=== PATIENT | female | born 1940 | race Caucasian/White ===

== ENCOUNTER → 2017-04-20 | Outpatient (CLI) | payer OTHER | LOC: FIMAGING 14:10 | PROVIDERS: ATTEND Neurological Surgery | DX: Z98.1 Arthrodesis status (principal); M41.9 Scoliosis, unspecified ==

== ENCOUNTER 2017-05-03 05:51 | Inpatient (IN) | payer OTHER ==
[2017-05-03] MEDS ORDERED: TRANEXAMIC ACID 1,000 MG in NS 100 ML IV ONE (06:00)
[2017-05-03] MEDS ORDERED: fentaNYL 100 MCG/2 ML INJ IT ONE (06:07)
[2017-05-03] MEDS ORDERED: ceFAZolin 2 GM/SWFI 2 GM/20 ML SYR IVP ONE (06:07)
[2017-05-03] MEDS ORDERED: morphINE PF 5 MG/10 ML INJ IT ONE (06:07)
[2017-05-03] MEDS ORDERED: ACETAMINOPHEN 500 MG TAB PO ONE (06:07)
[2017-05-03] MEDS ORDERED: LR 1,000 ML IV ONE (06:29)
[2017-05-03] MEDS ORDERED: BUPIVACAINE 0.25% 30 ML SDV ONE ×3 (06:54→16:39)
[2017-05-03] MEDS ORDERED: BACITRACIN 50,000 UNITS/10 ML SYR IRR ONE ×3 (06:55→15:04)
[2017-05-03] MEDS ORDERED: THROMBIN (BOVINE) 20,000 UNIT VIAL TP ONE (06:56)
[2017-05-03] MEDS ORDERED: CHLORHEXIDINE GLUC HIBICLENS 118 ML BTL TP ONE (06:57)
[2017-05-03] MEDS ORDERED: CITRATE DEXTROSE SOLN 500 ML BAG ONE ×2 (06:57→12:33)
--- NOTE | 2017-05-03 07:03 | PDANEPAE ---
ANE Past Medical History - Cardiovascular History Hx Hypertension: Yes Hx Arrhythmias: No Hx Chest Pain: No Hx Coronary Artery / Peripheral Vascular Disease: No Hx CHF / Valvular Disease: No Hx Palpitations: No - Pulmonary History Hx COPD: No Hx Asthma/Reactive Airway Disease: No Hx Recent Upper Respiratory Infection: No Hx Oxygen in Use at Home: No Hx Sleep Apnea: Yes Sleep Apnea Screening Result - Last Documented: Positive Pulmonary History Comment: quit smoking 04-20-17 Smoked over 50 years-"socially " - Neurologic History Hx Cerebrovascular Accident: No Hx Seizures: No Hx Dementia: No - Endocrine History Hx Diabetes: Yes Endocrine History Comment: NIDDM well controlled. - Renal History Hx Renal Disorders: Yes Renal History Comment: sl stress incontinence. - Liver History Hx Hepatic Disorders: No - Neurological & Psychiatric Hx Hx Neurological and Psychiatric Disorders: Yes Neurological / Psychiatric History Comment: low back pain with weakness/pain in legs - Cancer History Hx Cancer: No - Congenital Disorder History Hx Congenital Disorders: No - GI History Hx Gastrointestinal Disorders: Yes Gastrointestinal History Comment: on Rx-occ heartburn;occ diverticulosis - Other Health History Other Health History: rash on back/chest due to bleach; Intermittent Swelling of feet/ankles - Chronic Pain History Chronic Pain: Yes (back/legs) - Surgical History Prior Surgeries: tonsillectomy. bilat knee sx. bilat knee replacements. lap sean. lumbar fusion. shrapnell excised arm. breast cyst excised. hysterectomy. oophorectomy. cataract extraction w/IOL ANE Review of Systems Review of Systems: - Exercise capacity METS (RN): 3 METS ANE Patient History - Allergies Allergies/Adverse Reactions: Bleach (Sodium Hypochlorite) Allergy (Verified 05/03/17 06:44) Rash Penicillins Allergy (Verified 05/03/17 06:44) Rash - Home Medications Home Medications: Aspirin [Aspirin 81mg (*)] 81 mg PO DAILY 04/25/17 [Last Taken Unknown] Cholecalciferol Vit D3 [Vitamin D3 (*)] 1,000 units PO DAILY 04/25/17 [Last Taken Unknown] Folic Acid [Folic Acid 1 MG (*)] 1 mg PO DAILY 04/25/17 [Last Taken Unknown] Furosemide [Lasix 20 MG (*)] 20 mg PO MWF@0930 04/25/17 [Last Taken Unknown] Hydrocodone/APAP 5/325 [Albion 5/325 (*)] 1 each PO DAILY PRN 04/25/17 [Last Taken Unknown] Hydrocodone/Acetaminophen [[place]ion 5/325 (*)] 1 each PO BID 04/25/17 [Last Taken Unknown] Ibuprofen [Motrin (*)] 600 mg PO BID 04/25/17 [Last Taken Unknown] Metolazone [Zaroxolyn 5MG (*)] 2.5 mg PO MWF 04/25/17 [Last Taken Unknown] Multivitamins [Multivitamin (*)] 1 each PO DAILY 04/25/17 [Last Taken Unknown] Nebivolol HCl [Bystolic] 20 mg PO HS 04/25/17 [Last Taken Unknown] Omeprazole [Prilosec 20 mg] 20 mg PO DAILY 04/25/17 [Last Taken Unknown] Pioglitazone HCl [Actos] 45 mg PO DAILY 04/25/17 [Last Taken Unknown] Pramipexole Di-HCl [Mirapex 1 mg (*)] 2 mg PO HS 04/25/17 [Last Taken Unknown] Pregabalin [Lyrica 75mg (*)] 150 mg PO HS 04/25/17 [Last Taken Unknown] Vitamin B Complex [B Complex] 1 each PO DAILY 04/25/17 [Last Taken Unknown] diphenhydrAMINE [Benadryl 25 MG (*)] 50 mg PO HS 04/25/17 [Last Taken Unknown] metFORMIN HCL [Glucophage 1000 mg] 1,000 mg PO HS 04/25/17 [Last Taken Unknown] - NPO status NPO Since - Liquids (Date): 05/03/17 NPO Since - Liquids (Time): 04:00 NPO Since - Solids (Date): 05/02/17 NPO Since - Solids (Time): 22:00 - Smoking Hx Smoking Status: Former smoker ANE Labs/Vital Signs - Vital Signs Blood Pressure: 160/85 Heart Rate: 66 Respiratory Rate: 16 O2 Sat (%): 90 Height: 172.72 cm Weight: 99.79 kg ANE Physical Exam - Airway Mallampati Score: Class 1 - ASA Status ASA Status: III ANE Anesthesia Plan Anesthesia Plan: general endotracheal anesthesia Lines/Monitors: arterial line
[2017-05-03] MEDS ORDERED: MIDAZOLAM 2 MG/2 ML VIAL ONE (07:07)
[2017-05-03] MEDS ORDERED: PROPOFOL 200 MG/20 ML VIAL ONE ×4 (07:08→16:13)
[2017-05-03] MEDS ORDERED: PROPOFOL/EMULSION 500 MG/50 ML BOTTLE IV ONE ×5 (07:08→13:09)
[2017-05-03] MEDS ORDERED: fentaNYL 100 MCG/2 ML INJ ONE ×5 (07:08→17:26)
--- NOTE | 2017-05-03 07:09 | PDHPUP ---
History & Physical Update H&P update statement: This history and physical update is based on an assessment of the patient which was completed after admission or registration (within 24 hours), but prior to the surgery/procedure. H&P update: no change in patient's condition since H&P completed
[2017-05-03] MEDS ORDERED: ONDANSETRON 4 MG/2 ML VIAL IVP PRN ×2 (17:08→17:14)
[2017-05-03] MEDS ORDERED: ONDANSETRON DISINTEGRATING 4 MG TAB PO PRN (17:08)
[2017-05-03] MEDS ORDERED: diphenhydrAMINE 25 MG CAP PO PRN (17:08)
[2017-05-03] MEDS ORDERED: LACTULOSE 20 GM/30 ML UDCUP PO PRN (17:08)
[2017-05-03] MEDS ORDERED: morphINE PCA 30 MG/30 ML PCA IV PRN (17:08)
[2017-05-03] MEDS ORDERED: MAGNESIUM HYDROXIDE 30 ML UDCUP PO PRN (17:08)
--- NOTE | 2017-05-03 17:08 | POSTOPPROG ---
Post Op Note Date of Operation: 05/03/17 Surgeon: Jamil Han Fireman Helper: Jacob Mckay Anesthesiologist: John Santizo Anesthesia: GET(General Endotracheal) Pre-op Diagnosis: degenerative scoliosis, spinal stenosis, pseudarthrosis Post-op Diagnosis: same Indication: back and leg pain, pseudarthrosis Procedure: T10-L5 fusion with L 1/2,2/3,3/4,4/5 TLIFs Findings: loose hardware, severe DJD and spinal stenosis Inf/Abcess present in the surg proc area at time of surgery?: No EBL: 500-1000 Complications: none Drains: Santo Malhotra (to bulb suction)
[2017-05-03] MEDS ORDERED: NALOXONE HCL 0.4 MG/ML INJ IVP PRN ×2 (17:14→20:15)
[2017-05-03] MEDS ORDERED: LR 500 ML IV PRN (17:14)
[2017-05-03] MEDS ORDERED: PROMETHAZINE HCL 25 MG/ML INJ IVP PRN (17:14)
[2017-05-03] MEDS ORDERED: NS W/ 20 KCl/L 1,000 ML IV SCH (17:15)
--- NOTE | 2017-05-03 17:15 | POSTANESTH ---
Post Anesthetic Evaluation Cardiovascular Status: Normal, Stable Respiratory Status: Normal, Stable Level of Consciousness/Mental Status: Can Participate in Eval Pain Control: Adequate, Prn Tx Ordered Nausea/Vomiting Control: Adequate, Prn Tx Ordered Complications Possibly Related to Anesthesia: None Noted
--- NOTE | 2017-05-03 17:28 | SOAPPROG ---
SOAP Progress Note Assessment/Plan: POST OP CHECK: Assessment: Doing well s/p T10-L5 fusion with L1/2,2/3,3/4,4/5 TLIFs Plan: CPM in PACU RHODA to suction Transfer to ICU per protocol 05/03/17 17:21 Subjective: Awake, alert, comfortable Objective: Vital Signs Temp Pulse Resp BP Pulse Ox 37 C 66 16 160/85 H 90 L 05/03/17 06:45 05/03/17 07:03 05/03/17 07:03 05/03/17 07:03 05/03/17 07:03 Neuro: NUGENT to command sens +LT PERRLA conversant Vitals: HR:78 BP:128/66 O2: 98% face mask ICD10 Worksheet Patient Problems: Problems Problem Status Onset Degenerative disc disease, lumbar Acute Pseudarthrosis Acute - ICD10 Problem Qualifiers (1) Pseudarthrosis (2) Degenerative disc disease, lumbar
[2017-05-03] MEDS: fentaNYL 100 MCG/2 ML INJ IVP PRN ×2 (17:33→17:58)
[2017-05-03 17:53] LABS: % IMMATURE GRANULYOCYTES 0.8 % (0.0-1.1); ABSOLUTE IMMATURE GRANULOCYTES 0.11 10^3/uL (0.00-0.10); ADD DIFF? NO; ADD MORPH? NO; ADD SCAN? NO; ATYPICAL LYMPHOCYTE FLAG 0 (0-99); FRAGMENT RBC FLAG 0 (0-99); HEMATOCRIT 30.5 % (38.0-47.0); HEMOGLOBIN 10.3 g/dL (12.6-16.3); LEFT SHIFT FLG 0 (0-99); LIPEMIA HEMOLYSIS FLAG 90 (0-99); MEAN CELL HEMOGLOBIN 33.4 pg (27.9-34.1); MEAN CELL HEMOGLOBIN CONCENTR. 33.8 g/dL (32.4-36.7); MEAN PLATELET VOLUME 9.7 fL (8.7-11.7); PLATELET CLUMPS FLAG 0 (0-99); PLATELET COUNT 207 10^3/uL (150-400); RED BLOOD CELL COUNT 3.08 10^6/uL (4.18-5.33); RED CELL DISTRIBUTION WIDTH 14.3 % (11.5-15.2)
[2017-05-03] MEDS ORDERED: ALBUMIN 5% 500 ML BOTTLE IV ONE (19:32)
[2017-05-03] MEDS ORDERED: ALBUMIN 5% 500 ML IV ONE (20:00)
[2017-05-03] MEDS: ceFAZolin 2 GM/DEXTROSE 100 ML IV SCH (20:33)
[2017-05-03] MEDS: PRAMIPEXOLE 1 MG TAB PO SCH (21:19)
[2017-05-03] MEDS: GABAPENTIN 300 MG CAP PO SCH (21:20)
[2017-05-03] MEDS: FAMOTIDINE 20 MG TAB PO SCH (21:20)
[2017-05-03] MEDS: PREGABALIN 150 MG CAP PO SCH (21:20)
[2017-05-03] MEDS: morphINE SR 15 MG TAB PO SCH (21:20)
[2017-05-03] MEDS: ACETAMINOPHEN 500 MG TAB PO SCH (21:20)
[2017-05-03] MEDS: POLYETHYLENE GLYCOL 3350 17 GM PKT PO SCH (21:21)
[2017-05-03] MEDS: SENNOSIDES/DOCUSATE SODIUM TAB PO SCH (21:21)
[2017-05-03] MEDS: NEBIVOLOL HCL 5 MG TAB PO SCH (21:22)
[2017-05-03] MEDS: metFORMIN HCL 500 MG TAB PO SCH (21:22)
[2017-05-03 23:58] LABS: HEMATOCRIT 24.3 % (38.0-47.0); HEMOGLOBIN 8.3 g/dL (12.6-16.3)
[2017-05-04] MEDS ORDERED: NS BOLUS 500 ML (Wide open) IV ONE (01:30)
[2017-05-04] MEDS: ceFAZolin 2 GM/DEXTROSE 100 ML IV SCH (02:07)
--- NOTE | 2017-05-04 03:33 | GOP ---
[f rep st] OPERATIVE REPORT DATE OF OPERATION: 05/03/2017 SURGEON: Jamil Han MD NEUROSURGEON: Jamil Han MD PEARL DIGGER: BRENTON Reynolds ANESTHESIA: General endotracheal. PREOPERATIVE DIAGNOSIS: Severe lumbar degenerative scoliosis with spinal stenosis. Intractable low back pain and bilateral lower extremity radiculopathy and neurogenic claudication symptoms. Failed conservative care. Progressive spinal deformity. High risk surgical candidate given age, obesity and other comorbidities. POSTOPERATIVE DIAGNOSIS: Severe lumbar degenerative scoliosis with spinal stenosis. Intractable low back pain and bilateral lower extremity radiculopathy and neurogenic claudication symptoms. Failed conservative care. Progressive spinal deformity. High risk surgical candidate given age, obesity and other comorbidities. PROCEDURE PERFORMED: 1. Right-sided far lateral transpedicular decompression at the T12-L1, L1-2, L2 -3, and L3-4 levels. 2. Left-sided far lateral transpedicular decompression at the L4-5 level. T10 through L5 posterior segmental (pedicle screws and Axle devices) fixation and posterolateral fusion from T12-L1, L1-2, L2-3, L3-4, and L4-5 posterior/ transforaminal lumbar interbody fusion with 2 structural PEEK interbody spacers , local autograft and bone morphogenic protein. 3. Use of intraoperative microscopy, fluoroscopy and computer volumetric stereotactic navigation with intraoperative neurophysiologic testing. 4. Injection of intrathecal narcotic analgesics and subcutaneous and intramuscular local anesthesia for postoperative pain control. FINDINGS: ESTIMATED BLOOD LOSS: 1000 cc. INDICATIONS: The patient is a 76-year-old woman with extensive comorbidities including morbid obesity and history of smoking who has intractable low back pain and bilateral lower extremity neurogenic claudication and radicular symptoms secondary to severe progressive lumbar degenerative scoliosis with spinal stenosis and critical lateral recess impingement. She has failed extensive conservative care and presents now for multilevel surgical decompression and stabilization. DESCRIPTION OF PROCEDURE: After informed consent was obtained, the patient was taken to the operating room and placed in prone position on a Santo table. The lumbosacral area was prepped and draped in sterile fashion. After fluoroscopic localization of the correct level, the subcutaneous and intramuscular tissues were infiltrated with local anesthesia. A midline linear incision was then created from approximately T11 through L5. This was carried down to the fascial layer, which was incised using monopolar electrocautery and carried in the subperiosteal plane along the spinous processes and out lamina bilaterally. Intraoperative fluoroscopy was again utilized to verify the correct levels. The prior instrumentation at L2-3 was identified and carefully removed. The screws were extremely loose. 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 Following this the O- arm neuronavigational system was brought in and using computer volumetric stereotactic navigation and 3D reconstructed images, pedicle screws were placed from T11 through L5. Note that this was an extremely difficult exposure and screw placement given the extensive amount of scar tissue and distorted anatomy from the prior surgery as well as the patient's morbid obesity. The exposure took approximately 4 times as long as normal with 2-3 times as much blood loss. The screw placement was similar in difficulty but we were able to get adequate screws all the way up and down. The left L5 screw broke out laterally and a more medial screw had to be placed. This was relatively solid but I was concerned about the overall longevity of it and I felt that it was in the best interest of the patient to place Axle devices and do the surgery as well. In addition, the T11 screws were very weak and I felt that it was in the patient's best interest to extend it up 1 more level to T10, where there was no decompression in order to hopefully prevent a junctional kyphosis and placed an Axle device as well, for the same reason. The exposure was extended up and the screws were placed at T10 as well. Each individual screw was tested neurophysiologically with monopolar electrostimulation and interpretation of the potentials by the surgeon. Following this, small short rods were serially placed, first at L4-5, then at L3-4, then at L2-3, then at L1-2, then at T12-L1 and a slight amount of distraction was created across each interspace, during which time complete diskectomies were performed with preparation of endplates and placement of 2 structural PEEK interbody spacers along with bone morphogenic protein and morselized autograft and allograft for T12-L1, L1-2, L2- 3, L3-4, and L4-5 posterior/transforaminal lumbar interbody fusions. The T12- L1 level was performed because of the rigidity of the level, and the fact that I could not get an adequate reduction of the deformity and needed to decompress that level as well. In looking at the MRI during surgery, she also had a large disk herniation and I felt that it was in the best interest to decompress from that standpoint as well. The L4-5 level was decompressed because I felt that it was definitely in her best interest to perform an interbody fusion at that level given the screw at the L5 level on the left that I had difficulty with. Following the posterior/transforaminal lumbar interbody fusions from T12-L5, longer rods were placed and secured with an effort to maximize the patient's lordosis by rotating the rods into position in order to decrease the coronal deformity and increase the sagittal lumbar lordosis. This was very effective and the screws and rods were locked in place with a slight amount of compression across each of the interbody fusion levels. The wound was then copiously irrigated with antibiotic irrigation. Meticulous hemostasis was achieved. The remaining lamina and facet joints and transverse processes were then extensively decorticated from T10 through L5 and the residual local autograft from the facetectomies along with the morselized allograft and bone morphogenic protein were placed out laterally for a posterolateral fusion from T10 through L5. Following this, Axle devices were placed at the T10-11 and L4- 5 levels, for the reasons stated above. 200 mcg of Duramorph along with 50 mcg of fentanyl were injected intrathecally at the L5-S1 level. The subcutaneous and intramuscular tissues were re-infiltrated with local anesthesia. A drain was placed and the wound was closed in a layered fashion using interrupted Vicryl sutures followed by Steri-Strips on the skin. SECOND PEARL DIGGER: BRENTON Wilkins COMPLICATIONS: None. DISPOSITION: The patient is currently in the process of being repositioned for extubation. /[id number]/MODL MTDD
[2017-05-04 05:27] LABS: % IMMATURE GRANULYOCYTES 0.8 % (0.0-1.1); ABSOLUTE IMMATURE GRANULOCYTES 0.11 10^3/uL (0.00-0.10); ADD DIFF? NO; ADD MORPH? NO; ADD SCAN? NO; ATYPICAL LYMPHOCYTE FLAG 10 (0-99); FRAGMENT RBC FLAG 0 (0-99); HEMATOCRIT 25.6 % (38.0-47.0); HEMOGLOBIN 8.3 g/dL (12.6-16.3); LEFT SHIFT FLG 0 (0-99); LIPEMIA HEMOLYSIS FLAG 80 (0-99); MEAN CELL HEMOGLOBIN 33.1 pg (27.9-34.1); MEAN CELL HEMOGLOBIN CONCENTR. 32.4 g/dL (32.4-36.7); MEAN PLATELET VOLUME 9.9 fL (8.7-11.7); PLATELET CLUMPS FLAG 0 (0-99); PLATELET COUNT 182 10^3/uL (150-400); RED BLOOD CELL COUNT 2.51 10^6/uL (4.18-5.33); RED CELL DISTRIBUTION WIDTH 14.6 % (11.5-15.2)
[2017-05-04] MEDS: ACETAMINOPHEN 500 MG TAB PO SCH ×3 (05:38→21:41)
[2017-05-04] MEDS: GABAPENTIN 300 MG CAP PO SCH ×3 (05:38→21:41)
[2017-05-04 06:01] LABS: ANION GAP 6 mEq/L (8-16); CALCIUM 7.6 mg/dL (8.5-10.4); CARBON DIOXIDE 27 mEq/l (22-31); CHLORIDE 107 mEq/L (97-110); CREATININE 0.9 mg/dL (0.6-1.0); GLOMERULAR FILTRATION RATE > 60; GLUCOSE 139 mg/dL (70-100); POTASSIUM 4.7 mEq/L (3.5-5.2); SODIUM 140 mEq/L (134-144)
[2017-05-04 06:51] LABS: BASE EXCESS -5.4 mEq/L (-2.5-2.5); BICARBONATE 21 mEq/L (22-26); MEASURED OXYGEN SATURATION 97 % (92-95); PCO2 50 mmHg (34-38); PO2 110 mmHg (65-75); TCO2 23 mEq/L (23-27)
--- NOTE | 2017-05-04 07:45 | SOAPPROG ---
TONYA Progress Note Assessment/Plan: Assessment: POD #1 Doing well s/p T10-L5 fusion with L1/2,2/3,3/4,4/5 TLIFs H/H dropped overnight. Low urine output overnight Plan: Bolus with 500ml NS now. Increase baseline rate to 125ml/hr Repeat H/H at noon today. Continue RHODA to suction PT/OT today. D/W Dr. Patel 05/04/17 07:46 Subjective: awake but groggy. Pain well controlled currently. Denies new numbness, tingling or weakness. She has baseline decreased sensation in both feet Objective: Vital Signs Temp Pulse Resp BP Pulse Ox 37.0 C 76 14 102/47 L 98 05/04/17 04:00 05/04/17 06:00 05/04/17 06:00 05/04/17 06:00 05/04/17 06:00 Laboratory Results 05/04/17 05:00 05/04/17 05:00 05/03/17 05/04/17 05/05/17 05:59 05:59 05:59 Intake Total 300 Output Total 995 Balance -695 Neuro: NUGENT, Sens +LT Follows commands, speech clear RHODA: 570ml since surgery ICD10 Worksheet Patient Problems: Problems Problem Status Onset Degenerative disc disease, lumbar Acute Pseudarthrosis Acute - ICD10 Problem Qualifiers (1) Pseudarthrosis (2) Degenerative disc disease, lumbar
[2017-05-04] MEDS: NS 1,000 ML IV SCH ×2 (07:59→17:31)
[2017-05-04] MEDS ORDERED: NS 500 ML IV ONE (08:00)
[2017-05-04] MEDS: METOLAZONE 2.5 MG TAB PO SCH (08:11)
[2017-05-04] MEDS: PIOGLITAZONE HCL 15 MG TAB PO SCH (08:11)
[2017-05-04] MEDS: FUROSEMIDE 20 MG TAB PO SCH (08:11)
[2017-05-04] MEDS: morphINE SR 15 MG TAB PO SCH ×2 (08:11→21:42)
[2017-05-04] MEDS: CHOLECALCIFEROL VIT D3 1,000 UNITS TAB PO SCH (08:11)
[2017-05-04] MEDS: FAMOTIDINE 20 MG TAB PO SCH ×2 (08:11→21:42)
[2017-05-04] MEDS: VITAMIN B COMPLEX 1 EA CAP/TAB PO SCH (08:11)
[2017-05-04] MEDS: POLYETHYLENE GLYCOL 3350 17 GM PKT PO SCH ×3 (08:12→21:43)
[2017-05-04] MEDS: FOLIC ACID 1 MG TAB PO SCH (08:12)
[2017-05-04] MEDS: SENNOSIDES/DOCUSATE SODIUM TAB PO SCH ×2 (08:12→21:42)
[2017-05-04] MEDS: ENOXAPARIN 40 MG/0.4 ML SYR SC SCH (08:12)
[2017-05-04 10:17] LABS: HEMATOCRIT 24.6 % (38.0-47.0); HEMOGLOBIN 8.1 g/dL (12.6-16.3); MEAN CELL HEMOGLOBIN 33.9 pg (27.9-34.1); MEAN CELL HEMOGLOBIN CONCENTR. 32.9 g/dL (32.4-36.7); MEAN CELL VOLUME 102.9 fL (81.5-99.8); RED BLOOD CELL COUNT 2.39 10^6/uL (4.18-5.33); RED CELL DISTRIBUTION WIDTH 14.6 % (11.5-15.2)
[2017-05-04] MEDS ORDERED: ALBUMIN 25% 100 ML IV ONE ×2 (11:00)
--- NOTE | 2017-05-04 11:05 | ASMTCMCOM ---
CM Note CM Note Notes: Patient is POD #1 T10-L5 fusion with lumbar TLIFs. I spoke with she and her daughter Toni about discharge planning. They hope that patient will qualify for inpatient rehab at [facility]. A consult was ordered, and inpatient rehab will follow. PT/OT/TERMITE CONTROL SERVICE REPRESENTATIVE evals to follow. CM will help facilitate discharge when patient is medically stable. Date Signed: 05/04/2017 04:52 PM Electronically Signed By:Altagracia Oscar RN
[2017-05-04] MEDS: METHOCARBAMOL 750 MG TAB PO PRN (11:30)
[2017-05-04] MEDS: oxyCODONE IR 5 MG TAB PO PRN (17:32)
[2017-05-04] MEDS: metFORMIN HCL 500 MG TAB PO SCH (21:40)
[2017-05-04] MEDS: NEBIVOLOL HCL 5 MG TAB PO SCH (21:40)
[2017-05-04] MEDS: PRAMIPEXOLE 1 MG TAB PO SCH (21:41)
[2017-05-04] MEDS: PREGABALIN 150 MG CAP PO SCH (21:42)
--- NOTE | 2017-05-05 01:17 | GCON ---
[f rep st] CONSULTATION PULMONARY CONSULTATION HISTORY OF PRESENT ILLNESS: This patient is a 76-year-old female with extensive history of scoliosis with multiple back surgeries in the past who had hardware issues and chronic pain and was evaluated by Orthopedics and underwent extensive spine surgery with laminectomies and removal and replacement o f hardware. The surgery itself was complicated by about a liter of blood loss with some minor hypote nsion. She responded well to transfusions and albumin overnight. She did have some oxygen requireme nt as well overnight, and a blood gas showed a pCO2 of about 50 earlier this morning. She does have a known history of sleep apnea but has been noncompliant with CPAP at least for the last couple of ye ars. REVIEW OF SYSTEMS: Otherwise negative. PAST MEDICAL HISTORY: Includes hypertension, gastroesophageal reflux disease, diabetes, scoliosis, a nd sleep apnea. PAST SURGICAL HISTORY: Includes multiple back surgeries. SOCIAL HISTORY: I believe she is a current smoker but no significant alcohol or IV drug use. FAMILY HISTORY: Noncontributory. MEDICATIONS: At this time include Tylenol, Dulcolax, vitamin D, Benadryl, Lovenox, Pepcid, folate, i ntermittent Lasix, Neurontin, metformin, Robaxin, metolazone, morphine SOCIAL WORKER, Narcan, Bystolic, Zofran, oxycodone, Actos, MiraLAX, Lyrica, Senokot, and vitamin D. PHYSICAL EXAM: VITAL SIGNS: She is afebrile. Blood pressure 101/34, heart rate 68, respirations 12 , oxygen saturation 99% on 2 L. GENERAL: She is an obese female who was awake and alert and able to speak in full sentences without using accessory muscles for breathing. HEENT: Pupils are equally r ound and reactive to light. Nonicteric and noninjected. Mucous membranes moist without erythema or exudate. NECK: Supple without adenopathy or jugular vein distention. PULMONARY: Breath sounds are distant but clear to auscultation bilaterally without wheezes, rubs, or rales. HEART: Regular rate and rhythm without murmurs, rubs, or gallops. ABDOMEN: Soft, nontender, nondistended without hepat osplenomegaly. EXTREMITIES: No clubbing, cyanosis, or edema. NEUROLOGIC: Nonfocal, including cran ial nerves, deep tendon reflexes. SKIN: Warm and dry without evidence of rash. OBJECTIVE DATA: Includes a white count of 11 which is down from a high of 14.5, a hematocrit of 24.6 which has been stable since her transfusion yesterday, platelets of 143 which is slightly low. Bloo d gas this morning with a pH of 7.25, pCO2 of 50, PO2 of 110, bicarb 23, sat 97% on 10 L OxyMask. Ba sic metabolic panel essentially normal with the exception of slightly elevated glucose but normal cre atinine and normal anion gap. ASSESSMENT AND PLAN: 1. Hypoxemia. I think this is related to her underlying sleep apnea. I encouraged her, if possible , to have her CPAP device brought, although a daughter is coming from [place] today. In the a bsence of that, she can use our CPAP device with empiric settings while she is here overnight. 2. Hypertension. This appears to be fairly well controlled. Her blood pressure was slightly low th is morning. She did respond to another albumin bolus without needing pressors or blood transfusions. 3. Diabetes. This appears to be fairly well controlled at this time on her current regimen. /[id number]/MODL
[2017-05-05] MEDS: METHOCARBAMOL 750 MG TAB PO PRN ×2 (02:15→16:45)
[2017-05-05] MEDS: oxyCODONE IR 5 MG TAB PO PRN ×2 (02:15→20:14)
[2017-05-05 07:03] LABS: CALCULATED OXYGEN SATURATION 95 % (92-95); O2 CONCENTRATIION 70 % (0-100)
[2017-05-05] MEDS: GABAPENTIN 300 MG CAP PO SCH ×3 (07:33→21:22)
[2017-05-05] MEDS: ACETAMINOPHEN 500 MG TAB PO SCH ×3 (07:33→21:27)
[2017-05-05 08:08] LABS: HEMATOCRIT 19.9 % (38.0-47.0); MEAN CELL HEMOGLOBIN 33.7 pg (27.9-34.1); MEAN CELL HEMOGLOBIN CONCENTR. 32.2 g/dL (32.4-36.7); MEAN CELL VOLUME 104.7 fL (81.5-99.8); RED BLOOD CELL COUNT 1.9 10^6/uL (4.18-5.33); RED CELL DISTRIBUTION WIDTH 14.7 % (11.5-15.2)
[2017-05-05 08:22] LABS: HEMOGLOBIN 6.4 g/dL (12.6-16.3)
[2017-05-05 08:26] LABS: ANION GAP 9 mEq/L (8-16); CALCIUM 6.9 mg/dL (8.5-10.4); CARBON DIOXIDE 22 mEq/l (22-31); CHLORIDE 108 mEq/L (97-110); CREATININE 0.9 mg/dL (0.6-1.0); GLOMERULAR FILTRATION RATE > 60; GLUCOSE 132 mg/dL (70-100); POTASSIUM 4.2 mEq/L (3.5-5.2); SODIUM 139 mEq/L (134-144)
--- NOTE | 2017-05-05 08:36 | NEUSURGPN ---
Assessment/Plan: POD #2 s/p T10-L5 fusion with L1/2,2/3,3/4,4/5 TLIFs Plan: Increased somnolence this AM, abg abnormal. Crit care involved. On bipap and is improving. Checking cbc/bmp - HH is 6.4/19.9 - 1 unit PRBC ordered for transfusion and recheck afterwards. Continue RHODA to suction PT/OT today if able to tolerate Continue ICU care until respiratory status and mental status improved D/W Dr. Patel Subjective: Unable to obtain, on BIPAP Objective: Bipap on VSS Answers questions appropriately MAEx4 Follows commands Motor 5/5 BLE +LT Urinary Catheter in Place: Yes Urinary Catheter Indication: Surgical Requirement (to be removed once ambulatory ) - Physician Discussed Patient with : [facility] Neurosurgery Physical Exam - Vitals, I&O, Labs I and O 05/04/17 05/05/17 05/06/17 05:59 05:59 05:59 Intake Total 300 4480 Output Total 995 2430 Balance -695 2050 Weight 98 kg Intake: Oral (ml) 200 1150 IV Intake (ml) 100 IV Infused (ml) 3330 Albumin 25% 100 ml @ As 100 Directed IV ONCE ONE Rx#: [id number] Ns 1,000 ml @ 125 mls/hr 2718 IV CONT JEAN Rx#: [id number] Ns 500 ml @ As Directed 500 IV ONCE ONE Rx#: [id number] morphINE MUSICAL INSTRUMENT MAKER See Protocol 12 IV PRN PRN Rx#: [id number] Output: Urine (ml) 425 1825 Catheter 425 1825 RHODA Drain Output (ml) 570 605 #1 Left Back Santo 570 605 Malhotra Other: Intake Quantity Yes Yes Sufficient Vital Signs Temp Pulse Resp BP Pulse Ox 37.7 C 66 20 107/52 L 100 05/05/17 07:00 05/05/17 07:45 05/05/17 07:45 05/05/17 07:00 05/05/17 07:45 Laboratory Results 05/05/17 07:55 05/05/17 07:55 ICD10 Worksheet Patient Problems: Problems Problem Status Onset Degenerative disc disease, lumbar Acute Pseudarthrosis Acute
--- NOTE | 2017-05-05 09:36 | PDINTPN ---
Central Services Tech Progress Note Assessment/Plan: Assessment/plan: 76 F with history of DM, HTN, JULIANA admitted for extensive repair of previous spine surgery, complicated by moderate blood loss with marginal BP, but improved rapidly postop. * Anemia- probably ongoing oozing postop as H/H dropping slowly daily. Transfuse 1 unit and observe. Platelets 120 so no transfusion required. recheck coags * Altered consciousness- likely related to acute respiratory acidosis and improving with bipap * Acute respiratory failure with hypercapnia- most consistent with untreated JULIANA. She reports years of non-compliance, but coupled with narcotics and surgery would expect exacerbation (similar issue night of 05/03 that resolved spontaneously). Bipap appears effective and followup abg pending. * DM- moderate control with metformin and actos. * HTN- controlled with Bystolic, zaroxolyn, and lasix. Subjective: somnolent though arousable this am Objective: Vital Signs Temp Pulse Resp BP Pulse Ox 37.7 C 66 20 115/51 L 100 05/05/17 07:00 05/05/17 08:00 05/05/17 08:00 05/05/17 08:00 05/05/17 08:00 Laboratory Results 05/05/17 07:55 05/05/17 07:55 05/04/17 05/05/17 05/06/17 05:59 05:59 05:59 Intake Total 300 4480 Output Total 995 2430 Balance -695 2050 Physical Exam - Physical Exam General Appearance: mild distress, obtunded EENT: PERRL/EOMI Neck: supple Respiratory: lungs clear, decreased breath sounds, No respiratory distress, No accessory muscle use Cardiac/Chest: regular rate, rhythm, No edema Abdomen: non-tender, soft, No distended Skin: normal color, warm/dry Lymphatic: no adenopathy Extremities: No pedal edema Neuro/Psych: cognition abnormalities, No abnormal strip cleaner II-XII ICD10 Worksheet Patient Problems: Problems Problem Status Onset Degenerative disc disease, lumbar Acute Pseudarthrosis Acute
[2017-05-05 09:49] LABS: BASE EXCESS -2.6 mEq/L (-2.5-2.5); BICARBONATE 23 mEq/L (22-26); MEASURED OXYGEN SATURATION 98 % (92-95); PCO2 50 mmHg (34-38); PO2 115 mmHg (65-75); TCO2 24 mEq/L (23-27)
[2017-05-05 09:57] LABS: P/F RATIO 288 RATIO; PATIENT RATE 20
[2017-05-05 09:58] LABS: BIPAP YES; EXP PRESSURE 5; INSP PRESSURE 16
[2017-05-05 09:59] LABS: O2 CONCENTRATIION 40 % (0-100)
[2017-05-05] MEDS: ENOXAPARIN 40 MG/0.4 ML SYR SC SCH (10:05)
[2017-05-05] MEDS: CHOLECALCIFEROL VIT D3 1,000 UNITS TAB PO SCH (11:43)
[2017-05-05] MEDS: FAMOTIDINE 20 MG TAB PO SCH ×2 (11:43→21:27)
[2017-05-05] MEDS: SENNOSIDES/DOCUSATE SODIUM TAB PO SCH ×2 (11:44→21:23)
[2017-05-05] MEDS: morphINE SR 15 MG TAB PO SCH ×2 (11:44→21:29)
[2017-05-05] MEDS: PIOGLITAZONE HCL 15 MG TAB PO SCH (11:44)
[2017-05-05] MEDS: VITAMIN B COMPLEX 1 EA CAP/TAB PO SCH (11:44)
[2017-05-05] MEDS: FOLIC ACID 1 MG TAB PO SCH (11:44)
[2017-05-05] MEDS: POLYETHYLENE GLYCOL 3350 17 GM PKT PO SCH ×3 (11:44→21:23)
[2017-05-05 12:23] LABS: INR 1.08 (0.83-1.16); PROTIME(PATIENT) 14.2 SEC (12.0-15.0)
--- NOTE | 2017-05-05 16:22 | ASMTCMCOM ---
CM Note CM Note Notes: Patient still not erik enough for PT/OT evals. D/C needs TBD. CM following. Date Signed: 05/05/2017 04:21 PM Electronically Signed By:Chuyita Simmons LCSW
[2017-05-05 20:57] LABS: HEMATOCRIT 26.6 % (38.0-47.0); HEMOGLOBIN 9.3 g/dL (12.6-16.3)
[2017-05-05] MEDS: PRAMIPEXOLE 1 MG TAB PO SCH (21:23)
[2017-05-05] MEDS: PREGABALIN 150 MG CAP PO SCH (21:23)
[2017-05-05] MEDS: metFORMIN HCL 500 MG TAB PO SCH (21:26)
[2017-05-05] MEDS: NEBIVOLOL HCL 5 MG TAB PO SCH (21:29)
[2017-05-06] MEDS: METHOCARBAMOL 750 MG TAB PO PRN ×2 (05:15→11:24)
[2017-05-06] MEDS: GABAPENTIN 300 MG CAP PO SCH ×3 (05:15→21:02)
[2017-05-06] MEDS: ACETAMINOPHEN 500 MG TAB PO SCH ×3 (05:15→21:01)
[2017-05-06] MEDS: oxyCODONE IR 5 MG TAB PO PRN ×2 (07:30→14:34)
[2017-05-06] MEDS ORDERED: BACITRACIN OINTMENT 1 PACKET TP ONE (07:36)
--- NOTE | 2017-05-06 07:50 | SOAPPROG ---
TONYA Progress Note Assessment/Plan: Assessment: POD #3 s/p T10-L5 fusion with L1/2,2/3,3/4,4/5 TLIFs doing better this AM per RN. More alert and oriented than yesterday per RN. Plan: Bilateral LE U/S due to bilateral calf tenderness to palpation. She is on Lovenox. Continue RHODA to suction PT/OT today Continue ICU care LUmbar xrays today if she can tolerate D/W Dr. Patel 05/06/17 07:52 Subjective: awake,alert, conversant. Denies new numbness, tingling or weakness Objective: Vital Signs Temp Pulse Resp BP Pulse Ox 38.2 C 62 18 99/46 L 100 05/06/17 04:00 05/06/17 06:00 05/06/17 06:00 05/06/17 06:00 05/06/17 06:00 Laboratory Results 05/05/17 20:45 05/05/17 07:55 05/05/17 05/06/17 05/07/17 05:59 05:59 05:59 Intake Total 4480 2900 Output Total 2430 1400 Balance 2050 1500 PT 14.2 SEC (12.0-15.0) 05/05/17 12:05 INR 1.08 (0.83-1.16) 05/05/17 12:05 Neuro: generalized LE weakness NUGENT to command. Sens +LT throughout Follows commands, speech clear PERRLA EOMI PE: bilateral calf tenderness RHODA: 425ml ICD10 Worksheet Patient Problems: Problems Problem Status Onset Degenerative disc disease, lumbar Acute Pseudarthrosis Acute - ICD10 Problem Qualifiers (1) Pseudarthrosis (2) Degenerative disc disease, lumbar
[2017-05-06] MEDS: PIOGLITAZONE HCL 15 MG TAB PO SCH (09:19)
[2017-05-06] MEDS: METOLAZONE 2.5 MG TAB PO SCH (09:19)
[2017-05-06] MEDS: FAMOTIDINE 20 MG TAB PO SCH ×2 (09:19→21:02)
[2017-05-06] MEDS: FUROSEMIDE 20 MG TAB PO SCH (09:20)
[2017-05-06 09:28] LABS: % IMMATURE GRANULYOCYTES 0.4 % (0.0-1.1); ABSOLUTE IMMATURE GRANULOCYTES 0.03 10^3/uL (0.00-0.10); ADD DIFF? NO; ADD MORPH? NO; ADD SCAN? NO; ATYPICAL LYMPHOCYTE FLAG 0 (0-99); FRAGMENT RBC FLAG 0 (0-99); HEMOGLOBIN 8.6 g/dL (12.6-16.3); LEFT SHIFT FLG 0 (0-99); LIPEMIA HEMOLYSIS FLAG 90 (0-99); MEAN CELL HEMOGLOBIN 33.1 pg (27.9-34.1); MEAN CELL HEMOGLOBIN CONCENTR. 34.4 g/dL (32.4-36.7); MEAN CELL VOLUME 96.2 fL (81.5-99.8); PLATELET CLUMPS FLAG 0 (0-99); PLATELET COUNT 121 10^3/uL (150-400); RED CELL DISTRIBUTION WIDTH 16.8 % (11.5-15.2)
[2017-05-06 09:41] LABS: ANION GAP 7 mEq/L (8-16); CALCIUM 7.7 mg/dL (8.5-10.4); CARBON DIOXIDE 25 mEq/l (22-31); CHLORIDE 104 mEq/L (97-110); CREATININE 0.7 mg/dL (0.6-1.0); GLOMERULAR FILTRATION RATE > 60; GLUCOSE 84 mg/dL (70-100); POTASSIUM 3.9 mEq/L (3.5-5.2); SODIUM 136 mEq/L (134-144)
[2017-05-06] MEDS: VITAMIN B COMPLEX 1 EA CAP/TAB PO SCH (11:17)
[2017-05-06] MEDS: SENNOSIDES/DOCUSATE SODIUM TAB PO SCH ×2 (11:18→21:04)
[2017-05-06] MEDS: FOLIC ACID 1 MG TAB PO SCH (11:18)
[2017-05-06] MEDS: POLYETHYLENE GLYCOL 3350 17 GM PKT PO SCH ×3 (11:18→21:04)
[2017-05-06] MEDS: CHOLECALCIFEROL VIT D3 1,000 UNITS TAB PO SCH (11:18)
[2017-05-06] MEDS: ENOXAPARIN 40 MG/0.4 ML SYR SC SCH (11:18)
[2017-05-06] MEDS: morphINE SR 15 MG TAB PO SCH ×2 (11:19→21:03)
--- NOTE | 2017-05-06 16:52 | PDINTPN ---
Playground Worker Progress Note Assessment/Plan: Assessment/plan: 76 F with history of DM, HTN, JULIANA admitted for extensive repair of previous spine surgery, complicated by moderate blood loss with marginal BP, but improved rapidly postop. * Anemia- probably ongoing oozing postop as H/H dropping slowly daily. improved with transfusion * Altered consciousness- likely related to acute respiratory acidosis and resolved with bipap * Acute respiratory failure with hypercapnia- most consistent with untreated JULIANA. She reports years of non-compliance, but coupled with narcotics and surgery would expect exacerbation (similar issue night of 05/03 that resolved spontaneously). * DM- moderate control with metformin and actos. * HTN- controlled with Bystolic, zaroxolyn, and lasix. * OK for floor 05/06/17 16:51 Subjective: feels much better today and used bipap overnight ' Objective: Vital Signs Temp Pulse Resp BP Pulse Ox 36.5 C 75 12 142/66 H 97 05/06/17 16:00 05/06/17 16:00 05/06/17 16:00 05/06/17 16:00 05/06/17 16:00 Laboratory Results 05/06/17 09:10 05/06/17 09:10 05/05/17 05/06/17 05/07/17 05:59 05:59 05:59 Intake Total 4480 2900 Output Total 2430 1400 Balance 2050 1500 PT 14.2 SEC (12.0-15.0) 05/05/17 12:05 INR 1.08 (0.83-1.16) 05/05/17 12:05 Physical Exam - Physical Exam General Appearance: alert, no apparent distress, obese Neck: supple Respiratory: lungs clear, normal breath sounds, No respiratory distress Cardiac/Chest: regular rate, rhythm, No edema Abdomen: non-tender, soft, No distended Skin: normal color, warm/dry Lymphatic: no adenopathy Extremities: No pedal edema Neuro/Psych: alert, normal mood/affect, oriented x 3 ICD10 Worksheet Patient Problems: Problems Problem Status Onset Degenerative disc disease, lumbar Acute Pseudarthrosis Acute
--- NOTE | 2017-05-06 19:11 | GCON ---
[f rep st] CONSULTATION REFERRING PHYSICIAN: Jamil Han MD CONSULTING QUESTION: Medical management. HISTORY OF PRESENT ILLNESS: This is a 76-year-old female who underwent T10 to L5 fusion on 7. The patient has been stabilized, is being transferred from the ICU to the medical floor. In the intensive care unit, patient is denying any chest pain, denying any shortness of breath now. Reports improved clarity of thought over the course of the last 24 hours. However, reports some constipatio n. Denies abdominal pain, nausea, or vomiting. Has been passing her own urine, denies dysuria, alden turia. She is having persistent back pain, being treated by Neurosurgery. PAST MEDICAL HISTORY: 1. Hypertension. 2. Gastroesophageal reflux disease. 3. Diabetes. 4. Scoliosis. 5. JULIANA. 6. Morbid obesity. SOCIAL HISTORY: Negative for tobacco, alcohol or illicit drugs. FAMILY HISTORY: Positive for hypertension and diabetes. REVIEW OF SYSTEMS: A 10-point review of systems is negative with the exception of that reported in t he HPI. PHYSICAL EXAMINATION: VITAL SIGNS: Blood pressure systolic 99-104, diastolic 46-56; heart rate 62; respiratory rate 18; 90% on 1 L, 96% on 2 L; 36.7. GENERAL: This is a morbidly obese female, lying flat in bed. HEENT: Notable for moist mucous membranes. Eye exam is negative for any icterus. CAR DIAC: Regular rate and rhythm. A quiet systolic murmur is appreciated. PULMONARY: Good respirator y effort. Clear to auscultation on anterior auscultation. GASTROINTESTINAL: Obese abdomen with pos itive bowel sounds. Abdomen is soft. MUSCULOSKELETAL: Bilateral trace lower extremity edema. SKIN : Negative for any rashes. NEUROLOGIC: Patient is alert and oriented x3. PSYCHIATRIC: She is ple asant and cooperative on interview and examination. DATA: White count 8.4, hematocrit 25.0, platelets of 121, which are stable. Sodium 136, potassium 3 .9, creatinine 0.7, blood glucose 84-141. Chest x-ray, which I personally reviewed and interpreted, shows no acute infiltrates or edema. PICC line is terminating appropriately. Hypoventilation is torres reciated. Patient is morbidly obese. ASSESSMENT AND PLAN: This is a 76-year-old female, status post T10 to L5 fusion. 1. T10 to L5 fusion. Patient is being followed by Neurosurgery, will manage brace, activity as well as pain through the primary neurosurgical team. 2. Hypertension. The patient is on a chronic regimen which includes at home, Bystolic, metolazone a nd Lasix. We will continue the 2 diuretics which are dosed Tuesday, Tuesday, Tuesday; and hold the B ystolic in the evenings until we see her blood pressures more consistently systolics above the 100s. 3. Diabetes. Patient takes 2 oral glycemic agents. Her blood sugars are very well controlled curre ntly. Will continue disease. 4. Gastroesophageal reflux disease. Will continue her on Pepcid twice daily. 5. Obstructive sleep apnea. The patient has responded well to BiPAP and CPAP in the intensive care unit. Will continue CPAP on the floor. 6. Prophylaxis with Lovenox. 7. Diet: Regular. 8. Disposition: Expect greater than 2 midnights as the patient is postop day #3, will need continue d postsurgical care and therapies. Thank you for the consultation. Will follow along with you. /[id number]/MODL
[2017-05-06] MEDS: metFORMIN HCL 500 MG TAB PO SCH (21:02)
[2017-05-06] MEDS: PREGABALIN 150 MG CAP PO SCH (21:04)
[2017-05-06] MEDS: PRAMIPEXOLE 1 MG TAB PO SCH (21:15)
[2017-05-07] MEDS: ACETAMINOPHEN 500 MG TAB PO SCH ×3 (05:23→21:14)
[2017-05-07] MEDS: GABAPENTIN 300 MG CAP PO SCH ×3 (05:23→21:15)
[2017-05-07] MEDS: oxyCODONE IR 5 MG TAB PO PRN ×3 (05:23→17:44)
[2017-05-07 05:42] LABS: % IMMATURE GRANULYOCYTES 0.7 % (0.0-1.1); ABSOLUTE IMMATURE GRANULOCYTES 0.05 10^3/uL (0.00-0.10); ADD DIFF? NO; ADD MORPH? NO; ADD SCAN? NO; ATYPICAL LYMPHOCYTE FLAG 0 (0-99); FRAGMENT RBC FLAG 0 (0-99); HEMATOCRIT 25.3 % (38.0-47.0); HEMOGLOBIN 8.6 g/dL (12.6-16.3); LEFT SHIFT FLG 0 (0-99); LIPEMIA HEMOLYSIS FLAG 90 (0-99); MEAN CELL VOLUME 96.9 fL (81.5-99.8); MEAN PLATELET VOLUME 9.8 fL (8.7-11.7); PLATELET CLUMPS FLAG 0 (0-99); PLATELET COUNT 127 10^3/uL (150-400); RED BLOOD CELL COUNT 2.61 10^6/uL (4.18-5.33)
[2017-05-07 05:56] LABS: ANION GAP 6 mEq/L (8-16); CARBON DIOXIDE 29 mEq/l (22-31); CHLORIDE 102 mEq/L (97-110); CREATININE 0.7 mg/dL (0.6-1.0); GLOMERULAR FILTRATION RATE > 60; GLUCOSE 101 mg/dL (70-100); SODIUM 137 mEq/L (134-144)
[2017-05-07] MEDS: ENOXAPARIN 40 MG/0.4 ML SYR SC SCH (10:53)
[2017-05-07] MEDS: POLYETHYLENE GLYCOL 3350 17 GM PKT PO SCH ×3 (10:53→21:20)
[2017-05-07] MEDS: CHOLECALCIFEROL VIT D3 1,000 UNITS TAB PO SCH (10:54)
[2017-05-07] MEDS: FOLIC ACID 1 MG TAB PO SCH (10:54)
[2017-05-07] MEDS: SENNOSIDES/DOCUSATE SODIUM TAB PO SCH ×2 (10:54→21:20)
[2017-05-07] MEDS: VITAMIN B COMPLEX 1 EA CAP/TAB PO SCH (10:54)
[2017-05-07] MEDS: FAMOTIDINE 20 MG TAB PO SCH ×2 (10:54→21:15)
--- NOTE | 2017-05-07 11:03 | NEUSURGPN ---
Date of Surgery: 05/03/17 Post Op Day: 4 Assessment/Plan: POD #4 s/p T10-L5 fusion with L1/2,2/3,3/4,4/5 TLIFs Plan: Bilateral LE U/S completed, report pending. She is on Lovenox. Continue RHODA to suction PT/OT H&H stable Appreciate medicine following Lumbar xrays pending Will need rehab upon discharge Subjective: pain controlled this morning. no lower extremity pain, numbness, tingling. Objective: Awake. Alert. PERRL Following commands Moving all extremities Strength full Neurosurgery Physical Exam - Vitals, I&O, Labs I and O 05/06/17 05/07/17 05/08/17 05:59 05:59 05:59 Intake Total 2900 1800 Output Total 1400 1025 70 Balance 1500 775 -70 Weight 113 kg Intake: Oral (ml) 1200 1800 IV Intake (ml) 650 Whole Blood (ml) 1050 Output: Urine (ml) 975 810 Bedside Commode 225 810 Catheter 750 RHODA Drain Output (ml) 425 215 70 #1 Left Back Santo 425 215 70 Malhotra Other: Intake Quantity Yes Sufficient Number of Voids Bedside Commode 2 Bladder Scan Volume (ml) Bedside Commode 250 Catheter 500 Vital Signs Temp Pulse Resp BP Pulse Ox 36.6 C 61 12 106/58 L 98 05/07/17 08:00 05/07/17 08:00 05/07/17 08:00 05/07/17 08:00 05/07/17 08:00 Laboratory Results 05/07/17 05:30 05/07/17 05:30 ICD10 Worksheet Patient Problems: Problems Problem Status Onset Degenerative disc disease, lumbar Acute Pseudarthrosis Acute
[2017-05-07] MEDS: METHOCARBAMOL 750 MG TAB PO PRN ×2 (11:09→17:44)
[2017-05-07] MEDS: morphINE SR 15 MG TAB PO SCH ×2 (11:44→21:17)
--- NOTE | 2017-05-07 13:00 | HOSPPROG ---
Hospitalist Progress Note Assessment/Plan: DIAGNOSES: -status post lumbar spine surgery, uncomplicated -diabetes mellitus, sugars in good range here so far -expected postoperative anemia, improved after some transfusion -chronic hypertension stable here so far -history of sleep apnea PLANS: -and trying to find results of the Doppler imaging of her legs -will continue to follow blood sugars and blood pressure and manage as indicated -CPAP while here in hospital -PT and OT, encouraged incentive spirometry -DVT prophylaxis has been ordered by the surgery team SUBJECTIVE: The patient has some expected surgical pain but actually is moving better today and is less painful to do that moving. No shortness of breath No nausea No fever symptoms OBJECTIVE Vitals reviewed: Stable without fever Exam: alert oriented skin warm dry color ok resps not labored lungs clear BSs heart regular abd soft nondistended nontender, bowel sounds present limbs warm, no edema iv site ok Objective: Vital Signs Temp Pulse Resp BP Pulse Ox 36.4 C 67 14 120/67 98 05/07/17 12:00 05/07/17 12:00 05/07/17 12:00 05/07/17 12:00 05/07/17 12:00 Laboratory Results 05/07/17 05:30 05/07/17 05:30 05/06/17 05/07/17 05/08/17 06:59 06:59 06:59 Intake Total 2900 1800 Output Total 1400 1025 370 Balance 1500 775 -370 PT 14.2 SEC (12.0-15.0) 05/05/17 12:05 INR 1.08 (0.83-1.16) 05/05/17 12:05 ICD10 Worksheet Patient Problems: Problems Problem Status Onset Degenerative disc disease, lumbar Acute Pseudarthrosis Acute
--- NOTE | 2017-05-07 15:15 | ASMTCMCOM ---
CM Note CM Note Notes: Pt able to work with therapies now. PT/OT recommending inpt rehab. Met w/pt's dtrToni who said they are really hoping she gets accepted to [facility] Inpt Rehab. Inpt Rehab will continue to assess on Tuesday. Pt normally lives in [place] with grand daughter. Date Signed: 05/07/2017 03:14 PM Electronically Signed By:Bonita Buchanan RN
[2017-05-07] MEDS: PIOGLITAZONE HCL 15 MG TAB PO SCH (17:46)
[2017-05-07] MEDS: metFORMIN HCL 500 MG TAB PO SCH (21:16)
[2017-05-07] MEDS: PREGABALIN 150 MG CAP PO SCH (21:20)
[2017-05-07] MEDS: PRAMIPEXOLE 1 MG TAB PO SCH (21:54)
[2017-05-08] MEDS: oxyCODONE IR 5 MG TAB PO PRN ×5 (00:27→21:21)
[2017-05-08] MEDS: METHOCARBAMOL 750 MG TAB PO PRN ×2 (00:27→08:54)
[2017-05-08 05:18] LABS: % IMMATURE GRANULYOCYTES 0.5 % (0.0-1.1); ABSOLUTE IMMATURE GRANULOCYTES 0.03 10^3/uL (0.00-0.10); ADD DIFF? NO; ADD MORPH? NO; ADD SCAN? NO; ATYPICAL LYMPHOCYTE FLAG 0 (0-99); FRAGMENT RBC FLAG 0 (0-99); HEMATOCRIT 25.2 % (38.0-47.0); HEMOGLOBIN 8.6 g/dL (12.6-16.3); LEFT SHIFT FLG 0 (0-99); LIPEMIA HEMOLYSIS FLAG 90 (0-99); MEAN CELL HEMOGLOBIN 33.3 pg (27.9-34.1); MEAN CELL HEMOGLOBIN CONCENTR. 34.1 g/dL (32.4-36.7); MEAN CELL VOLUME 97.7 fL (81.5-99.8); MEAN PLATELET VOLUME 10.3 fL (8.7-11.7); PLATELET CLUMPS FLAG 0 (0-99); PLATELET COUNT 158 10^3/uL (150-400); RED BLOOD CELL COUNT 2.58 10^6/uL (4.18-5.33); RED CELL DISTRIBUTION WIDTH 15.6 % (11.5-15.2)
[2017-05-08 05:34] LABS: ANION GAP 5 mEq/L (8-16); CALCIUM 8.2 mg/dL (8.5-10.4); CARBON DIOXIDE 31 mEq/l (22-31); CHLORIDE 100 mEq/L (97-110); CREATININE 0.7 mg/dL (0.6-1.0); GLOMERULAR FILTRATION RATE > 60; GLUCOSE 80 mg/dL (70-100); POTASSIUM 3.9 mEq/L (3.5-5.2); SODIUM 136 mEq/L (134-144)
[2017-05-08] MEDS: ACETAMINOPHEN 500 MG TAB PO SCH ×3 (06:02→20:29)
[2017-05-08] MEDS: GABAPENTIN 300 MG CAP PO SCH ×3 (06:02→20:31)
[2017-05-08] MEDS: FOLIC ACID 1 MG TAB PO SCH (08:53)
[2017-05-08] MEDS: ENOXAPARIN 40 MG/0.4 ML SYR SC SCH (08:53)
[2017-05-08] MEDS: SENNOSIDES/DOCUSATE SODIUM TAB PO SCH ×2 (08:53→22:34)
[2017-05-08] MEDS: FAMOTIDINE 20 MG TAB PO SCH ×2 (08:53→20:30)
[2017-05-08] MEDS: POLYETHYLENE GLYCOL 3350 17 GM PKT PO SCH ×3 (08:53→23:19)
[2017-05-08] MEDS: CHOLECALCIFEROL VIT D3 1,000 UNITS TAB PO SCH (08:53)
[2017-05-08] MEDS: VITAMIN B COMPLEX 1 EA CAP/TAB PO SCH (08:54)
[2017-05-08] MEDS: morphINE SR 15 MG TAB PO SCH ×2 (09:11→20:29)
--- NOTE | 2017-05-08 09:17 | NEUSURGPN ---
Date of Surgery: 05/03/17 Post Op Day: 5 Assessment/Plan: POD #4 s/p T10-L5 fusion with L1/2,2/3,3/4,4/5 TLIFs Received call last evening from RN that patient was experiencing bilateral hand and foot numbness. Improved this morning. Plan: Bilateral LE U/S completed, report pending from radiologist. Have tried calling to speak with a radiologist, no answer. Will try again later today. She is on Lovenox. Continue RHODA to suction PT/OT H&H stable Appreciate medicine following Lumbar xrays completed Will need rehab upon discharge Subjective: Having pain concentrated at the surgical site. Objective: Awake. Alert. PERRL. EOMI Following commands Muscle strength full at 5/5 Sensation intact - Physician Discussed Patient with : [facility] Physical Exam - Vitals, I&O, Labs I and O 05/07/17 05/08/17 05/09/17 05:59 05:59 05:59 Intake Total 1800 1250 Output Total 1025 1110 Balance 775 140 Intake: Oral (ml) 1800 1250 Output: Urine (ml) 810 850 Bedside Commode 810 850 RHODA Drain Output (ml) 215 260 #1 Left Back Santo 215 260 Malhotra Other: Intake Quantity Yes Yes Sufficient Number of Voids Bedside Commode 2 1 Vital Signs Temp Pulse Resp BP Pulse Ox 36.8 C 66 17 122/60 H 97 05/08/17 08:00 05/08/17 08:00 05/08/17 08:00 05/08/17 08:00 05/08/17 08:00 Laboratory Results 05/08/17 04:30 05/08/17 04:30 ICD10 Worksheet Patient Problems: Problems Problem Status Onset Degenerative disc disease, lumbar Acute Pseudarthrosis Acute
[2017-05-08] MEDS: PIOGLITAZONE HCL 15 MG TAB PO SCH (10:34)
--- NOTE | 2017-05-08 11:25 | HOSPPROG ---
Hospitalist Progress Note Assessment/Plan: Assessment: 76-year-old female presents for elective lumbar spine surgery, medicine consult for medical comanagement Plan: 1. Morbid obesity. BMI of 38, increases risk of postoperative morbidity and/or mortality, continue to work on physical therapy with the patient and inpatient rehab evaluation request is in as the patient will most likely substantially benefit from inpatient rehab following her surgery and high risk of deconditioning 2. Suspected atelectasis. Based on chest x-ray, personally interpreted, continue supplemental oxygen and incentive spirometer 3. Obstructive sleep apnea. Chronic, the patient reports that she does not use home CPAP device, continue positive pressure at night while in the hospital, and continue to recommend ongoing use of CPAP after discharge -patient experienced significant hypercapnia following surgery but this has since stabilized with positive pressure provided at night 4. Lumbar spine surgery. Neurosurgery remains Primary, patient requiring ongoing use of pain medication, temporarily avoiding sustained release morphine as it results in significant somnolence for the patient -on bowel regiment, currently experiencing constipation, will reassess tomorrow and provide magnesium citrate if she has not moved her bowels at that time -agree with DVT prophylaxis as per primary team 4. Acute blood loss anemia. Expected postoperatively, received transfusion, hemoglobin 8.6 today -monitor daily hemoglobin level 5. Diabetes mellitus type 2. Currently without hypoglycemia, fasting blood glucose level 80 this morning -continue metformin -continue monitor 6. Hypertension. Chronic, continue home medications 7. Lower extremity edema. Acute worsening, new problem this provider, further workup indicated. Patient reports she does have chronic lower extremity edema but has been acutely worsening during this hospitalization -lower extremity ultrasound performed, read currently pending, rule out deep venous thrombosis -patient is on Tuesday Lasix at home, increase this to once daily and monitor serum electrolyte level -continue [facility] Medicine service will continue to consult in this patient's daily care. Subjective: Patient with significant amount of pain with movement between bed and commode Objective: Vital Signs Temp Pulse Resp BP Pulse Ox 36.8 C 66 17 122/60 H 97 05/08/17 08:00 05/08/17 08:00 05/08/17 08:00 05/08/17 08:00 05/08/17 08:00 Laboratory Results 05/08/17 04:30 05/08/17 04:30 1205/08/17 05/09/17 05:59 05:59 05:59 Intake Total 1800 1250 Output Total 1025 1110 Balance 775 140 PT 14.2 SEC (12.0-15.0) 05/05/17 12:05 INR 1.08 (0.83-1.16) 05/05/17 12:05 - Physical Exam Constitutional: chronically ill appearing, obese, uncomfortable, No no apparent distress (Moderate), No not in pain (Moderate) Cardiovascular: regular rate and rhythym, no murmur, rub, or gallop, edema (1+ bilateral lower extremities) Respiratory: reduced air movement (Bilateral bases), inspiratory crackles ( Bilateral bases), No expiratory wheeze, No bronchial breath sounds, No respiratory distress Gastrointestinal: normoactive bowel sounds, soft, non-tender abdomen, no palpable masses, No distension Skin: other (No erythema expanding beyond the bandage sites) Musculoskeletal: other (Brace in place) Neurologic: AAOx3, other (Monitored patient transferring from bed to commode with 2 person assist), No facial droop Psychiatric: not encephalopathic, thought process linear, anxious, other ( Intermittently tearful), No agitated ICD10 Worksheet Patient Problems: Problems Problem Status Onset Pseudarthrosis Acute Degenerative disc disease, lumbar Acute
[2017-05-08] MEDS: BISACODYL 10 MG SUPP PR PRN (17:23)
[2017-05-08] MEDS: PRAMIPEXOLE 1 MG TAB PO SCH (20:30)
[2017-05-08] MEDS: metFORMIN HCL 500 MG TAB PO SCH (20:30)
[2017-05-08] MEDS: PREGABALIN 150 MG CAP PO SCH (20:31)
[2017-05-08] MEDS: ALTEPLASE 2 MG VIAL IVP PRN (21:55)
[2017-05-09 03:53] LABS: % IMMATURE GRANULYOCYTES 0.9 % (0.0-1.1); ABSOLUTE IMMATURE GRANULOCYTES 0.06 10^3/uL (0.00-0.10); ADD DIFF? NO; ADD MORPH? NO; ADD SCAN? NO; ATYPICAL LYMPHOCYTE FLAG 10 (0-99); FRAGMENT RBC FLAG 0 (0-99); HEMATOCRIT 26.1 % (38.0-47.0); HEMOGLOBIN 8.9 g/dL (12.6-16.3); LEFT SHIFT FLG 0 (0-99); LIPEMIA HEMOLYSIS FLAG 90 (0-99); MEAN CELL HEMOGLOBIN 33.3 pg (27.9-34.1); MEAN CELL HEMOGLOBIN CONCENTR. 34.1 g/dL (32.4-36.7); MEAN CELL VOLUME 97.8 fL (81.5-99.8); MEAN PLATELET VOLUME 9.7 fL (8.7-11.7); PLATELET CLUMPS FLAG 0 (0-99); PLATELET COUNT 171 10^3/uL (150-400); RED BLOOD CELL COUNT 2.67 10^6/uL (4.18-5.33); RED CELL DISTRIBUTION WIDTH 15.3 % (11.5-15.2)
[2017-05-09 04:01] LABS: ANION GAP 3 mEq/L (8-16); CALCIUM 8.2 mg/dL (8.5-10.4); CARBON DIOXIDE 33 mEq/l (22-31); CHLORIDE 98 mEq/L (97-110); CREATININE 0.6 mg/dL (0.6-1.0); GLOMERULAR FILTRATION RATE > 60; GLUCOSE 87 mg/dL (70-100); POTASSIUM 3.7 mEq/L (3.5-5.2); SODIUM 134 mEq/L (134-144)
[2017-05-09] MEDS: oxyCODONE IR 5 MG TAB PO PRN ×4 (06:14→20:24)
[2017-05-09] MEDS: ACETAMINOPHEN 500 MG TAB PO SCH ×3 (06:14→20:23)
[2017-05-09] MEDS: GABAPENTIN 300 MG CAP PO SCH ×3 (06:15→20:24)
--- NOTE | 2017-05-09 08:03 | NEUSURGPN ---
Date of Surgery: 05/03/17 Post Op Day: 6 Assessment/Plan: Assessment: POD #6 s/p T10-L5 fusion with L1/2,2/3,3/4,4/5 TLIFs Plan: -Pt was experiencing bilateral hand and foot numbness-improved now -pt with some bilateral thigh numbness likely related to positioning -continue with current pain management -bilateral LE U/S completed, report pending from radiologist. We have tried calling to speak with a radiologist, no answer. Will try again. She is on Lovenox. -continue RHODA to suction -PT/OT -H&H stable -appreciate medicine following -Lumbar xrays completed -will need rehab upon discharge -call with any questions or concerns -pt understands and agrees -d/w Dr Patel Subjective: Awake and alert. NAD Pt with expected lower back pain. No pino/neck/chest/abd or gu complaints. Objective: Awake. Alert. PERRLA, EOMI no droop CN 2-12 grossly intact Following commands Muscle strength full at 5/5 CDI, RHODA in place Sensation intact Neuro Check Frequency: per routine Urinary Catheter in Place: No - Physician Discussed Patient with : [facility] Physical Exam - Vitals, I&O, Labs I and O 05/08/17 05/09/17 05/10/17 05:59 05:59 05:59 Intake Total 1250 500 Output Total 1110 1010 Balance 140 -510 Intake: Oral (ml) 1250 500 Output: Urine (ml) 850 900 Bedside Commode 850 900 RHODA Drain Output (ml) 260 110 #1 Left Back Santo 260 110 Malhotra Other: Intake Quantity Yes Yes Sufficient Number of Voids Bedside Commode 1 1 Number of Stools Bedside Commode 1 Vital Signs Temp Pulse Resp BP Pulse Ox 36.9 C 68 16 141/63 H 97 05/09/17 00:00 05/09/17 00:00 05/09/17 00:00 05/09/17 00:00 05/09/17 00:00 Laboratory Results 05/09/17 03:40 05/09/17 03:40 ICD10 Worksheet Patient Problems: Problems Problem Status Onset Degenerative disc disease, lumbar Acute Pseudarthrosis Acute
[2017-05-09] MEDS: ENOXAPARIN 40 MG/0.4 ML SYR SC SCH (08:30)
[2017-05-09] MEDS: FUROSEMIDE 20 MG TAB PO SCH (08:31)
[2017-05-09] MEDS: FAMOTIDINE 20 MG TAB PO SCH ×2 (08:31→20:21)
[2017-05-09] MEDS: FOLIC ACID 1 MG TAB PO SCH (08:31)
[2017-05-09] MEDS: VITAMIN B COMPLEX 1 EA CAP/TAB PO SCH (08:32)
[2017-05-09] MEDS: CHOLECALCIFEROL VIT D3 1,000 UNITS TAB PO SCH (08:32)
[2017-05-09] MEDS: PIOGLITAZONE HCL 15 MG TAB PO SCH (08:32)
[2017-05-09] MEDS: morphINE SR 15 MG TAB PO SCH ×2 (08:40→23:32)
[2017-05-09] MEDS: METOLAZONE 2.5 MG TAB PO SCH (08:42)
[2017-05-09] MEDS: POLYETHYLENE GLYCOL 3350 17 GM PKT PO SCH ×3 (09:24→23:32)
[2017-05-09] MEDS: SENNOSIDES/DOCUSATE SODIUM TAB PO SCH ×2 (09:24→23:33)
[2017-05-09] MEDS: METHOCARBAMOL 750 MG TAB PO PRN (09:37)
[2017-05-09] MEDS ORDERED: METOCLOPRAMIDE 10 MG/2 ML VIAL IVP PRN (12:14)
[2017-05-09] MEDS ORDERED: METOCLOPRAMIDE 10 MG/2 ML VIAL IVP ONE (12:14)
--- NOTE | 2017-05-09 13:27 | ASMTCMCOM ---
CM Note CM Note Notes: Spoke w/Adeline from [facility] Inpt Rehab. They are continuing to assess; they would like to see how pt does w/therapies today before they can accept. Case Management will follow. Date Signed: 05/09/2017 01:27 PM Electronically Signed By:Bonita Buchanan RN
--- NOTE | 2017-05-09 19:50 | HOSPPROG ---
Hospitalist Progress Note Assessment/Plan: Assessment: 76-year-old female presents for elective lumbar spine surgery, medicine consult for medical comanagement Plan: 1. Morbid obesity. BMI of 38, increases risk of postoperative morbidity and/or mortality, continue to work on physical therapy with the patient and inpatient rehab evaluation request is in as the patient will most likely substantially benefit from inpatient rehab following her surgery and high risk of deconditioning 2. Suspected atelectasis. Based on chest x-ray, personally interpreted, continue supplemental oxygen and incentive spirometer 3. Obstructive sleep apnea. Chronic, the patient reports that she does not use home CPAP device, continue positive pressure at night while in the hospital, and continue to recommend ongoing use of CPAP after discharge -patient experienced significant hypercapnia following surgery but this has since stabilized with positive pressure provided at night, adjusted to CPAP 4. Lumbar spine surgery. Neurosurgery remains Primary, patient requiring ongoing use of pain medication, temporarily avoiding sustained release morphine as it results in significant somnolence for the patient -Inpt Rehab assessing therapy recs today -agree with DVT prophylaxis as per primary team 4. Acute blood loss anemia. Expected postoperatively, received transfusion, hemoglobin 8.9 today -monitor daily hemoglobin level 5. Diabetes mellitus type 2. Currently without hyperglycemia -continue metformin -continue monitor 6. Hypertension. Chronic, continue home medications 7. Lower extremity edema. Acute worsening, new problem this provider, further workup indicated. Patient reports she does have chronic lower extremity edema but has been acutely worsening during this hospitalization -lower extremity ultrasound w/o DVT per d/w Dr. Sorto -patient is on Tuesday Lasix at home, increased this to once daily and monitor serum electrolyte level -continue VINICIUS hose 8. Abdominal pain. Acute, new problem, further w/u indicated. Suspect 2/2 constipation despite two small BMs yesterday -get abd plain film, and if demonstrates bowel distension, will place on reglan and recommend suppository Hospital Medicine service will continue to consult in this patient's daily care. Subjective: abd pain w/ movement, having gas Objective: Vital Signs Temp Pulse Resp BP Pulse Ox 36.5 C 72 18 148/72 H 95 05/09/17 15:38 05/09/17 15:38 05/09/17 15:38 05/09/17 15:38 05/09/17 15:38 Laboratory Results 05/09/17 03:40 05/09/17 03:40 05/08/17 05/09/17 05/10/17 05:59 05:59 05:59 Intake Total 1250 500 400 Output Total 1110 1010 60 Balance 140 -510 340 PT 14.2 SEC (12.0-15.0) 05/05/17 12:05 INR 1.08 (0.83-1.16) 05/05/17 12:05 - Physical Exam Constitutional: no apparent distress, chronically ill appearing, obese, uncomfortable Cardiovascular: regular rate and rhythym, no murmur, rub, or gallop, edema (1+ bilat LE) Respiratory: reduced air movement (bilat bases), No expiratory wheeze, No inspiratory crackles, No bronchial breath sounds, No respiratory distress Gastrointestinal: normoactive bowel sounds, tenderness (mid abd), distension ( mild), No guarding Neurologic: AAOx3, No sensation intact bilaterally, No facial droop Psychiatric: interacting appropriately, not anxious, not encephalopathic, thought process linear ICD10 Worksheet Patient Problems: Problems Problem Status Onset Pseudarthrosis Acute Degenerative disc disease, lumbar Acute
[2017-05-09] MEDS ORDERED: BISACODYL 5 MG EC TAB PO ONE (19:52)
[2017-05-09] MEDS: PREGABALIN 150 MG CAP PO SCH (20:21)
[2017-05-09] MEDS: metFORMIN HCL 500 MG TAB PO SCH (20:21)
[2017-05-09] MEDS: METOCLOPRAMIDE 10 MG TAB PO SCH (20:22)
[2017-05-09] MEDS: PRAMIPEXOLE 1 MG TAB PO SCH (23:32)
[2017-05-10] MEDS: oxyCODONE IR 5 MG TAB PO PRN ×4 (01:12→22:04)
[2017-05-10] MEDS: GABAPENTIN 300 MG CAP PO SCH ×3 (05:22→22:04)
[2017-05-10] MEDS: ALTEPLASE 2 MG VIAL IVP PRN (05:22)
[2017-05-10] MEDS: ACETAMINOPHEN 500 MG TAB PO SCH ×3 (05:23→22:03)
[2017-05-10] MEDS: METOCLOPRAMIDE 10 MG TAB PO SCH ×4 (05:23→22:07)
[2017-05-10 06:08] LABS: % IMMATURE GRANULYOCYTES 1.4 % (0.0-1.1); ABSOLUTE IMMATURE GRANULOCYTES 0.11 10^3/uL (0.00-0.10); ABSOLUTE NRBC COUNT 0.03 10^3/uL (0-0.01); ADD DIFF? NO; ADD MORPH? NO; ADD SCAN? NO; ATYPICAL LYMPHOCYTE FLAG 10 (0-99); FRAGMENT RBC FLAG 0 (0-99); HEMATOCRIT 27.7 % (38.0-47.0); HEMOGLOBIN 9.4 g/dL (12.6-16.3); LEFT SHIFT FLG 10 (0-99); LIPEMIA HEMOLYSIS FLAG 90 (0-99); MEAN CELL HEMOGLOBIN 32.9 pg (27.9-34.1); MEAN CELL HEMOGLOBIN CONCENTR. 33.9 g/dL (32.4-36.7); MEAN CELL VOLUME 96.9 fL (81.5-99.8); MEAN PLATELET VOLUME 9.8 fL (8.7-11.7); NRBC-AUTO% 0.4 % (0.0-0.2); PLATELET CLUMPS FLAG 20 (0-99); PLATELET COUNT 207 10^3/uL (150-400); RED BLOOD CELL COUNT 2.86 10^6/uL (4.18-5.33); RED CELL DISTRIBUTION WIDTH 14.9 % (11.5-15.2)
[2017-05-10 06:24] LABS: ANION GAP 6 mEq/L (8-16); CALCIUM 8.6 mg/dL (8.5-10.4); CARBON DIOXIDE 38 mEq/l (22-31); CHLORIDE 93 mEq/L (97-110); CREATININE 0.7 mg/dL (0.6-1.0); GLOMERULAR FILTRATION RATE > 60; GLUCOSE 96 mg/dL (70-100); POTASSIUM 3.6 mEq/L (3.5-5.2); SODIUM 137 mEq/L (134-144)
[2017-05-10] MEDS: CHOLECALCIFEROL VIT D3 1,000 UNITS TAB PO SCH (09:12)
[2017-05-10] MEDS: ENOXAPARIN 40 MG/0.4 ML SYR SC SCH (09:12)
[2017-05-10] MEDS: FOLIC ACID 1 MG TAB PO SCH (09:13)
[2017-05-10] MEDS: FUROSEMIDE 20 MG TAB PO SCH (09:13)
[2017-05-10] MEDS: FAMOTIDINE 20 MG TAB PO SCH ×2 (09:13→22:06)
[2017-05-10] MEDS: VITAMIN B COMPLEX 1 EA CAP/TAB PO SCH (09:14)
[2017-05-10] MEDS: SENNOSIDES/DOCUSATE SODIUM TAB PO SCH ×2 (09:14→22:28)
[2017-05-10] MEDS: POLYETHYLENE GLYCOL 3350 17 GM PKT PO SCH ×3 (09:14→22:29)
[2017-05-10] MEDS: PIOGLITAZONE HCL 15 MG TAB PO SCH (09:14)
[2017-05-10] MEDS: morphINE SR 15 MG TAB PO SCH ×2 (10:19→22:06)
[2017-05-10] MEDS ORDERED: FUROSEMIDE 20 MG/2 ML VIAL IVP ONE (16:48)
--- NOTE | 2017-05-10 16:59 | HOSPPROG ---
Hospitalist Progress Note Assessment/Plan: Assessment: 76-year-old female presents for elective lumbar spine surgery, medicine consult for medical comanagement Plan: 1. Morbid obesity. BMI of 38, increases risk of postoperative morbidity and/or mortality -patient will most likely substantially benefit from inpatient rehab following her surgery and high risk of deconditioning 2. Suspected atelectasis. Based on chest x-ray, continue supplemental oxygen and incentive spirometer 3. Obstructive sleep apnea. Chronic, the patient reports that she does not use home CPAP device -cont CPAP at rehab, d/w patient 4. Lumbar spine surgery. Neurosurgery remains Primary, patient requiring ongoing use of pain medication, temporarily avoiding sustained release morphine as it results in significant somnolence for the patient -Inpt Rehab assessing therapy recs today -agree with DVT prophylaxis as per primary team -d/w Dr. Han, he will eval patient for possible drain removal in AM 4. Acute blood loss anemia. Expected postoperatively, received transfusion, hemoglobin 9.4 today 5. Diabetes mellitus type 2. Currently without hyperglycemia -continue metformin -continue monitor 6. Hypertension. Chronic, continue home medications 7. Lower extremity edema. Acute on chronic, 2/2 IVF w/ surgery -cont lasix 20mg daily, give additional dose of IV 20mg now and repeat labs in AM 8. Constipation. 2/2 immobility and opiates, present on abd x-ray and resulting in abd discomfort -persists despite reglan and PO miralax, recommend bisacodyl suppository, followed by enemas if no movement, then continue HS dose of relgan -if no BM in AM, will dose mag citrate + PO bisacodyl Counseled that patient extensively regarding the issues outlined above. She is very excited about the prospect of inpatient rehab. Hospital Medicine service will continue to consult in this patient's daily care. Subjective: no BM, good uOP Objective: Vital Signs Temp Pulse Resp BP Pulse Ox 36.8 C 79 16 135/72 H 93 05/10/17 08:00 05/10/17 16:00 05/10/17 16:00 05/10/17 16:00 05/10/17 16:00 Laboratory Results 05/10/17 06:00 05/10/17 06:00 05/09/17 05/10/17 05/11/17 05:59 05:59 05:59 Intake Total 500 900 350 Output Total 9941 4102 2722 Balance -279 -188 -2150 PT 14.2 SEC (12.0-15.0) 05/05/17 12:05 INR 1.08 (0.83-1.16) 05/05/17 12:05 - Time Spent With Patient Time Spent with Patient: greater than 35 minutes Time Spent with Patient: Greater than 35 minutes spent on this patients care, greater than 50% of time spent counseling, educating, and coordinating care regarding the above mentioned plan. - Physical Exam Constitutional: not in pain, chronically ill appearing, obese, uncomfortable Cardiovascular: regular rate and rhythym, no murmur, rub, or gallop, edema (1+ bilat LE), No irregularly irregular Respiratory: reduced air movement (bilat bases), No expiratory wheeze, No inspiratory crackles, No bronchial breath sounds Gastrointestinal: normoactive bowel sounds, tenderness (mild), No guarding, No distension Neurologic: AAOx3, sensation intact bilaterally, No weakness Psychiatric: interacting appropriately, not anxious, not encephalopathic, thought process linear ICD10 Worksheet Patient Problems: Problems Problem Status Onset Pseudarthrosis Acute Degenerative disc disease, lumbar Acute
[2017-05-10] MEDS: BISACODYL 10 MG SUPP PR PRN ×2 (18:30→22:08)
[2017-05-10] MEDS: METHOCARBAMOL 750 MG TAB PO PRN (18:31)
[2017-05-10] MEDS: PRAMIPEXOLE 1 MG TAB PO SCH (22:03)
[2017-05-10] MEDS: PREGABALIN 150 MG CAP PO SCH (22:05)
[2017-05-10] MEDS: metFORMIN HCL 500 MG TAB PO SCH (22:06)
[2017-05-11] MEDS: METHOCARBAMOL 750 MG TAB PO PRN (05:52)
[2017-05-11] MEDS: oxyCODONE IR 5 MG TAB PO PRN ×2 (05:53→12:51)
[2017-05-11] MEDS: ACETAMINOPHEN 500 MG TAB PO SCH ×2 (05:55→12:50)
[2017-05-11] MEDS: GABAPENTIN 300 MG CAP PO SCH ×2 (05:55→12:50)
[2017-05-11] MEDS: METOCLOPRAMIDE 10 MG TAB PO SCH ×2 (05:56→12:50)
[2017-05-11 07:45] VITALS: BP 134/66; PULSE 75; RESP 14; TEMP 98.3; O2SAT 96
--- NOTE | 2017-05-11 08:06 | SOAPPROG ---
SOAP Progress Note Assessment/Plan: Assessment: 76 yo F POD 8 T11-L5 fusion Plan: neuro: stable and doing well overall post op x-rays look great scd/aster/lovenox for dvt prophylaxis, no dvt on US of legs PT/OT anemia from intraoperative blood loss, hg/hct stable, continue to follow likely DC Boni today ok to transfer to rehab when cleared by Hospitalists please call with neuro changes discussed with Dr Patel 05/11/17 08:03 05/11/17 08:06 Subjective: back pain improving, no leg pain, no weakness. Objective: Vital Signs Temp Pulse Resp BP Pulse Ox 36.8 C 75 14 134/66 H 96 05/11/17 07:43 05/11/17 07:43 05/11/17 07:43 05/11/17 07:43 05/11/17 07:43 Laboratory Results 05/10/17 06:00 05/10/17 06:00 05/10/17 05/11/17 05/12/17 05:59 05:59 05:59 Intake Total 900 650 Output Total 1660 1940 Balance -760 -1290 PT 14.2 SEC (12.0-15.0) 05/05/17 12:05 INR 1.08 (0.83-1.16) 05/05/17 12:05 AAOx4, +FC PERRL, EOMI, no facial droop 5/5 + light touch C/D/I ICD10 Worksheet Patient Problems: Problems Problem Status Onset Degenerative disc disease, lumbar Acute Pseudarthrosis Acute
[2017-05-11] MEDS ORDERED: POTASSIUM CL 20 MEQ TAB PO ONE (09:28)
--- NOTE | 2017-05-11 09:38 | HOSPPROG ---
Hospitalist Progress Note Assessment/Plan: Assessment: 76-year-old female presents for elective lumbar spine surgery, medicine consult for medical comanagement Plan: 1. Morbid obesity. BMI of 38, increases risk of postoperative morbidity and/or mortality -patient will most likely substantially benefit from inpatient rehab following her surgery and high risk of deconditioning 2. Suspected atelectasis. Based on chest x-ray, continue supplemental oxygen and incentive spirometer, increase mobility 3. Obstructive sleep apnea. Chronic, the patient reports that she does not use home CPAP device -cont CPAP HS at rehab, if that is not available, OK to use regular o2 nasal cannula 4. Lumbar spine surgery. Neurosurgery remains Primary, patient requiring ongoing use of pain medication, successfully avoiding sustained release morphine as it results in significant somnolence for the patient -pain Rx per primary team -RHODA to be removed by primary team prior to DC -outpt f/u per primary team -patient reports she will be getting "bone stimulator" when she is discharged from Inpt Rehab, and her daughter has made all of the appropriate arrangements 4. Acute blood loss anemia. Expected postoperatively, received transfusion, hemoglobin stable, no further monitoring indicated 5. Diabetes mellitus type 2. Currently without hyperglycemia -continue home metformin 6. Hypertension. Chronic, continue home medications 7. Lower extremity edema. Acute on chronic, 2/2 IVF w/ surgery -increased to lasix 20mg PO daily (from MWF prior to admission) and would recommend continuing this daily given her ongoing edema -continue her home dosing of metolazone, and add KCl 20mEq PO daily while she is on the daily lasix, checking her BMP q3 days initially to ensure stability of Cr/K/Na levels -once edema improved at Inpt Rehab, decrease lasix back to MWF + home dose of metolzone +/- KCl 8. Constipation. 2/2 immobility and opiates, resolved, had BM last night and is responsive to bisacodyl suppository -recommend continuing scheduled senokot-s bid + PRN miralax/milk of mag/ bisacodyl suppository Counseled that patient extensively regarding the issues outlined above. She is very excited about discharging to Inpt Rehab. Patient is medically cleared for discharge to Inpt Rehab at this time; d/w Zak MUNIZ provider. Subjective: patient and daughter both reporting excellent experience at [facility], had BM o/n, pain well managed, good UOP o/n Objective: Vital Signs Temp Pulse Resp BP Pulse Ox 36.8 C 75 14 134/66 H 96 05/11/17 07:43 05/11/17 07:43 05/11/17 07:43 05/11/17 07:43 05/11/17 07:43 Laboratory Results 05/10/17 06:00 05/10/17 06:00 05/10/17 05/11/17 05/12/17 05:59 05:59 05:59 Intake Total 900 650 Output Total 1660 1940 Balance -760 -1290 PT 14.2 SEC (12.0-15.0) 05/05/17 12:05 INR 1.08 (0.83-1.16) 05/05/17 12:05 - Time Spent With Patient Time Spent with Patient: greater than 35 minutes Time Spent with Patient: Greater than 35 minutes spent on this patients care, greater than 50% of time spent counseling, educating, and coordinating care regarding the above mentioned plan. - Physical Exam Constitutional: not in pain, chronically ill appearing, obese, No uncomfortable Cardiovascular: regular rate and rhythym, no murmur, rub, or gallop, edema (1+ bilat LE) Respiratory: inspiratory crackles (bilat bases), No reduced air movement, No expiratory wheeze, No bronchial breath sounds, No respiratory distress Gastrointestinal: normoactive bowel sounds, soft, non-tender abdomen, no palpable masses Neurologic: AAOx3, sensation intact bilaterally, No weakness Psychiatric: interacting appropriately, not anxious, not encephalopathic, thought process linear ICD10 Worksheet Patient Problems: Problems Problem Status Onset Pseudarthrosis Acute Degenerative disc disease, lumbar Acute
[2017-05-11] MEDS: METOLAZONE 2.5 MG TAB PO SCH (09:44)
[2017-05-11] MEDS: CHOLECALCIFEROL VIT D3 1,000 UNITS TAB PO SCH (09:44)
[2017-05-11] MEDS: morphINE SR 15 MG TAB PO SCH (09:45)
[2017-05-11] MEDS: FAMOTIDINE 20 MG TAB PO SCH (09:45)
[2017-05-11] MEDS: PIOGLITAZONE HCL 15 MG TAB PO SCH (09:45)
[2017-05-11] MEDS: FUROSEMIDE 20 MG TAB PO SCH (09:45)
[2017-05-11] MEDS: FOLIC ACID 1 MG TAB PO SCH (09:46)
[2017-05-11] MEDS: VITAMIN B COMPLEX 1 EA CAP/TAB PO SCH (09:46)
[2017-05-11] MEDS: ENOXAPARIN 40 MG/0.4 ML SYR SC SCH (09:52)
[2017-05-11] MEDS: SENNOSIDES/DOCUSATE SODIUM TAB PO SCH (09:52)
[2017-05-11] MEDS: POLYETHYLENE GLYCOL 3350 17 GM PKT PO SCH (09:56)
--- NOTE | 2017-05-11 10:45 | PDIAF ---
- Diagnosis Diagnosis: T11-L5 fusion Code Status: Full Code - Medication Management Discharge Medications: Medications to Continue on Transfer Cholecalciferol Vit D3 [Vitamin D3 (*)] 1,000 units PO DAILY 04/25/17 [Last Taken 04/26/17] Folic Acid [Folic Acid 1 MG (*)] 1 mg PO DAILY 04/25/17 [Last Taken 04/26/17] Metolazone [Zaroxolyn 5MG (*)] 2.5 mg PO MWF 04/25/17 [Last Taken 05/02/17] Nebivolol HCl [Bystolic] 20 mg PO HS 04/25/17 [Last Taken 05/02/17] Omeprazole [Prilosec 20 mg] 20 mg PO DAILY 04/25/17 [Last Taken 05/02/17] Pioglitazone HCl [Actos] 45 mg PO DAILY 04/25/17 [Last Taken 05/02/17] Pramipexole Di-HCl [Mirapex 1 mg (*)] 2 mg PO HS 04/25/17 [Last Taken 05/02/17] Pregabalin [Lyrica 75mg (*)] 150 mg PO HS 04/25/17 [Last Taken 05/02/17] Vitamin B Complex [B Complex] 1 each PO DAILY 04/25/17 [Last Taken 04/26/17] diphenhydrAMINE [Benadryl 25 MG (*)] 50 mg PO HS 04/25/17 [Last Taken 05/02/17] metFORMIN HCL [Glucophage 1000 mg] 1,000 mg PO HS 04/25/17 [Last Taken 05/01/17] Enoxaparin [Lovenox 40 MG (*)] 40 mg SC DAILY syr 05/11/17 [Last Taken Unknown] Furosemide [Lasix 20 MG (*)] 20 mg PO DAILY tab 05/11/17 [Last Taken Unknown] Methocarbamol [Robaxin 750 mg (*)] 750 mg PO QID PRN tab 05/11/17 [Last Taken Unknown] Polyethylene Glycol 3350 [Miralax 17 gm (*)] 17 gm PO TID pkt 05/11/17 [Last Taken Unknown] Potassium Cl [Klor-Con 20 meq (*)] 20 meq PO DAILY tab 05/11/17 [Last Taken Unknown] Sennosides/Docusate Sodium [Senokot-S] 1 - 2 tab PO BID tab 05/11/17 [Last Taken Unknown] morphINE SR [Ms Contin/Oramorph 15 mg (*)] 15 mg PO BID tab 05/11/17 [Last Taken Unknown] oxyCODONE IR [Oxycodone Ir (*)] 5 - 10 mg PO Q4HRS PRN tab 05/11/17 [Last Taken Unknown] Discharge Medications: Refer to the Discharge Home Medication list for PRN reason. PICC Care - Routine: N/A - Orders Services needed: Registered Nurse, Physical Therapy, Occupational Therapy Diet Recommendation: no restrictions on diet Diet Texture: Regular Texture Diet Equipment: CPAP shoulde be worn at night - Follow Up Care Current Providers and Referrals: HEYDI ORTEGA [Other]
--- NOTE | 2017-05-11 14:11 | ASMTCMCOM ---
CM Note CM Note Notes: Pt medically stable for d/c to [facility] inpatient rehab. Order to be obtained in [employer]. [facility] transport scheduled for 1300, pt/dghtr informed of payment requirement. Date Signed: 05/11/2017 02:11 PM Electronically Signed By:BINU Stevens
--- NOTE | 2017-05-11 14:14 | ASDISCHSUM ---
Discharge Information Plan Status:Inpatient Rehab Medically Cleared to Leave: Discharge Date:05/11/2017 12:59 PM CM D/C Disposition:[facility] IP ADT D/C Disposition:[facility] IP Projected Discharge Date:05/11/2017 11:00 AM Transportation at D/C:Wheelchair Van Discharge Delay Reason: Follow-Up Date:05/11/2017 11:00 AM Discharge Slot: Final Diagnosis: Placement Information Referral Type:Rehabilitation Hospital Referral ID:[id number] Provider Name:[facility] Inpatient Rehab Address 1:[address] Phone Number: Address 2: Fax Number: [facility] Selection Factors: State:[place] Patient Contact Information Contact Name:MIKALA Relationship:Daughter Address: Work Phone: City:[place] [facility]ate [facility] Email: Financial Information Financial Class: Primary Plan Desc:MEDICARE INPATIENT Primary Plan Number:[id number] Secondary Plan Desc:[facility] Secondary Plan Number:[id number] Assessment Information [facility] CM Progress Note CM Note CM Note Notes: Patient is POD #1 T10-L5 fusion with lumbar TLIFs. I spoke with she and her daughter Toni about discharge planning. They hope that patient will qualify for inpatient rehab at [facility]. A consult was ordered, and inpatient rehab will follow. PT/OT/MOTOR RACER evals to follow. CM will help facilitate discharge when patient is medically stable. Date Signed: 05/04/2017 04:52 PM Electronically Signed By:Altagracia Oscar RN [facility] CM Progress Note CM Note CM Note Notes: Patient still not erik enough for PT/OT evals. D/C needs TBD. CM following. Date Signed: 05/05/2017 04:21 PM Electronically Signed By:Chuyita Simmons LCSW [facility] CM Progress Note CM Note CM Note Notes: Pt able to work with therapies now. PT/OT recommending inpt rehab. Met w/pt's dtrToni who said they are really hoping she gets accepted to [facility] Inpt Rehab. Inpt Rehab will continue to assess on Tuesday. Pt normally lives in [place] with grand daughter. Date Signed: 05/07/2017 03:14 PM Electronically Signed By:Bonita Buchanan RN [facility] CM Progress Note CM Note CM Note Notes: Spoke w/Adeline from [facility] Inpt Rehab. They are continuing to assess; they would like to see how pt does w/therapies today before they can accept. Case Management will follow. Date Signed: 05/09/2017 01:27 PM Electronically Signed By:Bonita Buchanan RN [facility] CM Progress Note CM Note CM Note Notes: Pt medically stable for d/c to [facility] inpatient rehab. Order to be obtained in [employer]. [employer] van transport scheduled for 1300, pt/dghtr informed of payment requirement. Date Signed: 05/11/2017 02:11 PM Electronically Signed By:BINU Stevens Intervention Information Intervention Type:*IM-Signed Date of Service:05/11/2017 11:26 AM Patient Type:Inpatient Staff Member:Ave Samuel Hours: Discipline: Severity: Comment:
[2017-05-12] MEDS ORDERED: POTASSIUM CL 20 MEQ TAB PO SCH (09:00)
== END 2017-05-11 12:59 | DRG 456 ==
LOC: F3N 05:51 → F2N 18:06 → F3N 05-06 17:50
PROVIDERS: ADMIT Neurological Surgery; ATTEND Neurological Surgery
PROC: 0RGA0AJ Fusion of Thoracolumbar Vertebral Joint with Interbody Fusion Device, Posterior Approach, Anterior Column, Open Approach (ICD-10-PCS; principal; 2017-05-03 07:15)
PROC: 01NB0ZZ Release Lumbar Nerve, Open Approach (ICD-10-PCS; principal; 2017-05-03 07:15)
PROC: 0SG10AJ Fusion of 2 or more Lumbar Vertebral Joints with Interbody Fusion Device, Posterior Approach, Anterior Column, Open Approach (ICD-10-PCS; principal; 2017-05-03 07:15)
PROC: 3E0U0GB Introduction of Recombinant Bone Morphogenetic Protein into Joints, Open Approach (ICD-10-PCS; principal; 2017-05-03 07:15)
PROC: 0ST20ZZ Resection of Lumbar Vertebral Disc, Open Approach (ICD-10-PCS; principal; 2017-05-03 07:15)
PROC: 30233N1 Transfusion of Nonautologous Red Blood Cells into Peripheral Vein, Percutaneous Approach (ICD-10-PCS; principal; 2017-05-03 07:15)
PROC: 0QP004Z Removal of Internal Fixation Device from Lumbar Vertebra, Open Approach (ICD-10-PCS; principal; 2017-05-03 07:15)
PROC: 02HV3DZ Insertion of Intraluminal Device into Superior Vena Cava, Percutaneous Approach (ICD-10-PCS; 2017-05-05)
DX: M41.86 Other forms of scoliosis, lumbar region (principal); T84.296A Other mechanical complication of internal fixation device of vertebrae, initial encounter; M48.062 Spinal stenosis, lumbar region with neurogenic claudication; M96.0 Pseudarthrosis after fusion or arthrodesis; M51.16 Intervertebral disc disorders with radiculopathy, lumbar region; J96.02 Acute respiratory failure with hypercapnia; J96.01 Acute respiratory failure with hypoxia; D62 Acute posthemorrhagic anemia; J98.11 Atelectasis; G47.33 Obstructive sleep apnea (adult) (pediatric); E66.01 Morbid (severe) obesity due to excess calories; Z68.38 Body mass index [BMI] 38.0-38.9, adult; E11.9 Type 2 diabetes mellitus without complications; K59.00 Constipation, unspecified; I10 Essential (primary) hypertension; K21.9 Gastro-esophageal reflux disease without esophagitis; Z98.1 Arthrodesis status; Z96.659 Presence of unspecified artificial knee joint
CPT/HCPCS: 97116-GP; 97162-GP; 97166-GO; 97530-GO; 97530-GP; 97535-GO; C1713; C1751; C1762; G8978-GP-CK; G8979-GP-CJ; G8980-GP-CJ; G8987-GO-CK; G8988-GO-CI; J0171; J0690; J1650; J1940; J2250; J2270; J2310; J2704; J2765; J2997; J3010; J7060; P9016; P9041; P9047

== ENCOUNTER 2017-05-11 14:00 | Inpatient (IN) | payer OTHER ==
[2017-05-11] MEDS ORDERED: BISACODYL 10 MG SUPP PR PRN (15:02)
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
[2017-05-11] MEDS: oxyCODONE IR 5 MG TAB PO PRN ×2 (16:34→20:58)
[2017-05-11] MEDS: morphINE SR 15 MG TAB PO SCH (20:06)
[2017-05-11] MEDS: PREGABALIN 75 MG CAP PO SCH (20:06)
[2017-05-11] MEDS: PRAMIPEXOLE 1 MG TAB PO SCH (20:06)
[2017-05-11] MEDS: metFORMIN HCL 500 MG TAB PO SCH (20:06)
[2017-05-11] MEDS: NEBIVOLOL HCL 5 MG TAB PO SCH (20:07)
[2017-05-11] MEDS ORDERED: NON-FORMULARY NEW DRUG (Metformin Hcl [Glucophage 1000 Mg] 1,000 MG) PO SCH (21:00)
[2017-05-11] MEDS: SENNOSIDES/DOCUSATE SODIUM TAB PO SCH (21:00)
[2017-05-11] MEDS ORDERED: NON-FORMULARY NEW DRUG (Nebivolol Hcl [Bystolic] 20 MG) PO SCH (21:00)
[2017-05-12] MEDS: oxyCODONE IR 5 MG TAB PO PRN ×5 (01:17→18:11)
[2017-05-12] MEDS: VITAMIN B COMPLEX 1 EA CAP/TAB PO SCH (08:46)
[2017-05-12] MEDS: POTASSIUM CL 20 MEQ TAB PO SCH (08:46)
[2017-05-12] MEDS: CHOLECALCIFEROL VIT D3 1,000 UNITS TAB PO SCH (08:47)
[2017-05-12] MEDS: FOLIC ACID 1 MG TAB PO SCH (08:47)
[2017-05-12] MEDS: FUROSEMIDE 20 MG TAB PO SCH (08:47)
[2017-05-12] MEDS: PANTOPRAZOLE SODIUM 40 MG TAB PO SCH (08:47)
[2017-05-12] MEDS: SENNOSIDES/DOCUSATE SODIUM TAB PO SCH ×2 (08:47→20:35)
[2017-05-12] MEDS: PIOGLITAZONE HCL 15 MG TAB PO SCH (08:48)
[2017-05-12] MEDS: morphINE SR 15 MG TAB PO SCH ×2 (08:49→20:35)
[2017-05-12] MEDS: POLYETHYLENE GLYCOL 3350 17 GM PKT PO SCH (08:49)
[2017-05-12] MEDS ORDERED: NON-FORMULARY NEW DRUG (Pioglitazone Hcl [Actos] 45 MG) PO SCH (09:00)
[2017-05-12] MEDS ORDERED: NON-FORMULARY NEW DRUG (Omeprazole [Prilosec 20 Mg] 20 MG) PO SCH (09:00)
[2017-05-12] MEDS: ENOXAPARIN 40 MG/0.4 ML SYR SC SCH (10:26)
--- NOTE | 2017-05-12 11:21 | SOAPPROG ---
SOAP Progress Note Assessment/Plan: Assessment: 1. Debility, status post extensive lumbar surgery. PT and OT to optimize mobility and ADLs. There are no stairs to climb to enter the house or in the house and the house is already well prepared for her likely level of debility. 2. Hypoxia with history of obstructive sleep apnea, possibly a component of obesity hypoventilation with hypercapnia, and possible component of congestive heart failure indicated by cardiomegaly seen on chest x-ray and edema. Continue oxygen as needed. Encouraged family to bring in her CPAP mask for use while she is in rehabilitation, though she was not using it at home. Continue diuretics as ordered out of the hospital. Repeat basic metabolic profile in 2 days to ensure her renal function and electrolytes are continuing to be normal. Will also check a BNP to evaluate for a component of congestive heart failure. 3. Morbid obesity. We will have a consultation with the dietitian. 4. Pain management. Continue morphine SR 15 mg twice daily. Change oxycodone 5- 10 mg from every 4 hours to every 3 hours as needed and offer oxycodone prior to therapy. 5. Anemia was stable and then improved in the hospital, and there is no need to continue to monitor. 6. Diabetes mellitus, type 2, has been well controlled on pioglitazone and metformin. It is unusual that the metformin is only dosed at bedtime, but given that she has had good control will not change her metformin dosing. 7. Hypertension has been well managed. We will continue her current medications. 8. Constipation. Continue bowel protocol with polyethylene glycol, but will change from three times daily to daily, as it is not clear to me that giving it more than daily has more significant effect. We will schedule senna/docusate twice daily. We will have bisacodyl suppository, as well as an enema available and will consider the addition of other laxatives such as lactulose, magnesium citrate, or Milk of Magnesia if constipation does not respond. 9. History of diabetic peripheral neuropathy. Continue pregabalin. 10. History of restless leg syndrome. Continue pramipexole. 11. Gastroesophageal reflux disorder. Continue pantoprazole. 12. Prophylaxis. She has significant deficits to mobility, and given obesity and age she is at high risk for deep venous thrombosis. Continue enoxaparin and sequential compression devices on the legs at night. 05/12/17 11:21 Objective: Vital Signs Temp Pulse Resp BP Pulse Ox 36.6 C 67 14 116/75 92 05/12/17 07:43 05/12/17 07:43 05/12/17 07:43 05/12/17 07:43 05/12/17 07:43 05/11/17 05/12/17 05/13/17 05:59 05:59 05:59 Intake Total 140 400 Output Total 400 1 Balance -260 399 ICD10 Worksheet Patient Problems: Problems Problem Status Onset Degenerative disc disease, lumbar Acute Pseudarthrosis Acute
--- NOTE | 2017-05-12 11:53 | SOAPPROG ---
SOAP Progress Note Assessment/Plan: Assessment: # Debility, status post extensive lumbar surgery. * There are no stairs to climb to enter the house or in the house and the house is already well prepared for her likely level of debility. * PT and OT to optimize mobility and ADLs. # Hypoxia with history of obstructive sleep apnea, possibly a component of obesity hypoventilation with hypercapnia, and possible component of congestive heart failure indicated by cardiomegaly seen on chest x-ray and edema. * Continue oxygen as needed. E * ncouraged family to bring in her CPAP mask for use while she is in rehabilitation, though she was not using it at home. * Continue diuretics as ordered out of the hospital. Repeat basic metabolic profile in 2 days to ensure her renal function and electrolytes are continuing to be normal. Will also check a BNP to evaluate for a component of congestive heart failure. # Morbid obesity. Consultation with the dietitian. # Pain management. * Continue morphine SR 15 mg twice daily. * Change increase oxycodone 5-10 mg every 3 hours as needed, to 5-15 mg starting 05/12/2017; offer before therapy. * Start acetaminophen 1000 mg Q 8 hr on 05/12/2017. * Check UA and PVR re L flank pain and tenderness. # Anemia was stable and then improved in the hospital, and there is no need to continue to monitor. # Diabetes mellitus, type 2, has been well controlled on pioglitazone and metformin. It is unusual that the metformin is only dosed at bedtime, but given that she has had good control will not change her metformin dosing. # Hypertension. Continue nebivolol. * Consider initiating Donnell inhibitor or ARB as she is diabetic. Await labs and continue to monitor blood pressure. # Constipation. Responding to bowel protocol. Continue polyethylene glycol daily and senna/docusate twice daily. We will have bisacodyl suppository, as well as an enema available. # History of diabetic peripheral neuropathy. Continue pregabalin. # History of restless leg syndrome. Continue pramipexole. # Gastroesophageal reflux disorder. Continue pantoprazole. # Prophylaxis. She has significant deficits to mobility, and given obesity and age she is at high risk for deep venous thrombosis. Continue enoxaparin and sequential compression devices on the legs at night. 05/12/17 15:39 Subjective: Reports a rough night. She says she got tangled up in the bed. Has pain in the left posterior pelvis when arising from seated and when standing. Bowels have moved. No cough or dyspnea, no fevers or chills. Objective: Vital Signs Temp Pulse Resp BP Pulse Ox 36.6 C 67 14 116/75 92 05/12/17 07:43 05/12/17 07:43 05/12/17 07:43 05/12/17 07:43 05/12/17 07:43 05/11/17 05/12/17 05/13/17 05:59 05:59 05:59 Intake Total 140 400 Output Total 400 1 Balance -260 399 Physical Exam - Physical Exam General Appearance: WD/WN, alert, moderate distress (When arising from seated), obese Respiratory: No respiratory distress, No accessory muscle use Back: CVA tenderness (L side) Skin: normal color, warm/dry, other (Incision appars glues, with 3 proximal steri-strips, minimal surrounding erythema, no drainage.) Neuro/Psych: no motor/sensory deficits, alert, normal mood/affect, oriented x 3 ICD10 Worksheet Patient Problems: Problems Problem Status Onset Degenerative disc disease, lumbar Acute Pseudarthrosis Acute
[2017-05-12] MEDS: ACETAMINOPHEN 500 MG TAB PO PRN (14:28)
[2017-05-12] MEDS: METHOCARBAMOL 750 MG TAB PO PRN ×2 (16:22→20:36)
[2017-05-12] MEDS: metFORMIN HCL 500 MG TAB PO SCH (20:35)
[2017-05-12] MEDS: NEBIVOLOL HCL 5 MG TAB PO SCH (20:35)
[2017-05-12] MEDS: PRAMIPEXOLE 1 MG TAB PO SCH (20:36)
[2017-05-12] MEDS: PREGABALIN 75 MG CAP PO SCH (20:36)
[2017-05-13] MEDS: oxyCODONE IR 5 MG TAB PO PRN ×2 (03:40→07:07)
[2017-05-13] MEDS: METHOCARBAMOL 750 MG TAB PO PRN (03:40)
[2017-05-13] MEDS: ACETAMINOPHEN 500 MG TAB PO PRN (05:58)
[2017-05-13 06:51] VITALS: BP 110/74; PULSE 64; RESP 12; TEMP 98.6; O2SAT 94
[2017-05-13 07:48] LABS: COLOR AMBER; LEUKOCYTE ESTERASE,URINE NEGATIVE (NEGATIVE); NITRITE,URINE NEGATIVE (NEGATIVE)
[2017-05-13] MEDS ORDERED: METOLAZONE 2.5 MG TAB PO SCH (08:00)
[2017-05-13] MEDS ORDERED: METOLAZONE 5 MG TAB PO SCH (08:00)
[2017-05-13 08:10] LABS: ANION GAP 7 mEq/L (8-16); CALCIUM 8.7 mg/dL (8.5-10.4); CARBON DIOXIDE 37 mEq/l (22-31); CHLORIDE 88 mEq/L (97-110); CREATININE 0.7 mg/dL (0.6-1.0); GLOMERULAR FILTRATION RATE > 60; GLUCOSE 117 mg/dL (70-100); POTASSIUM 4.2 mEq/L (3.5-5.2); SODIUM 132 mEq/L (134-144)
[2017-05-13] MEDS: POLYETHYLENE GLYCOL 3350 17 GM PKT PO SCH (08:36)
[2017-05-13] MEDS: CHOLECALCIFEROL VIT D3 1,000 UNITS TAB PO SCH (08:38)
[2017-05-13] MEDS: FOLIC ACID 1 MG TAB PO SCH (08:39)
[2017-05-13] MEDS: FUROSEMIDE 20 MG TAB PO SCH (08:39)
[2017-05-13] MEDS: morphINE SR 15 MG TAB PO SCH (08:41)
[2017-05-13] MEDS: PANTOPRAZOLE SODIUM 40 MG TAB PO SCH (08:41)
[2017-05-13] MEDS: PIOGLITAZONE HCL 15 MG TAB PO SCH (08:41)
[2017-05-13] MEDS: SENNOSIDES/DOCUSATE SODIUM TAB PO SCH (08:43)
[2017-05-13] MEDS: VITAMIN B COMPLEX 1 EA CAP/TAB PO SCH (08:43)
[2017-05-13] MEDS: POTASSIUM CL 20 MEQ TAB PO SCH (08:43)
[2017-05-13] MEDS: ENOXAPARIN 40 MG/0.4 ML SYR SC SCH (09:23)
[2017-05-13] MEDS ORDERED: oxyCODONE IR 5 MG TAB PO PRN (09:38)
--- NOTE | 2017-05-13 11:06 | SOAPPROG ---
SOAP Progress Note Assessment/Plan: Assessment: # Debility, status post extensive lumbar surgery. * Initial functional independence measure 66. Requiring max assist of 1 or 2 person transfer per nursing; eating less assist with physical therapy. Mobility is limited by pain. Minimal assist for upper body dressing but no more assist to Don TLSO. Showered with a rolling shower chair needing moderate assist. Shower transfer was not attempted. * There are no stairs to climb to enter the house or in the house and the house is already well prepared for her likely level of debility. * Continue PT and OT to optimize mobility and ADLs. Hyponatremia, moderate with an a 132 on BMP 05/13/2017. * Due to metolazone? * Await results of urine and serum osmolalities, serum uric acid and urine sodium. # Hypoxia with history of obstructive sleep apnea, possibly a component of obesity hypoventilation with hypercapnia, and possible component of congestive heart failure indicated by cardiomegaly seen on chest x-ray and edema. * Continue oxygen as needed. * Family to bring in her CPAP mask for use while she is in rehabilitation, though she was not using it at home. * BNP moderately elevated 05/13/2017, not diagnostic of CHF but not ruled out. Initiate daily weights. # Morbid obesity. Consultation with the dietitian. # Pain management. * Continue morphine SR 15 mg twice daily. * Change increase oxycodone 5-10 mg every 3 hours as needed, to 5-15 mg starting 05/12/2017; offer before therapy. * Start acetaminophen 1000 mg Q 8 hr on 05/12/2017. * UA normal and PVR not elevated re L flank pain and tenderness. * Abd/lumbar CT with possible nerve impingement by hardware L3 on left. Admitted to [facility] by Neurosurgery. # Anemia was stable and then improved in the hospital, and there is no need to continue to monitor. # Diabetes mellitus, type 2, has been well controlled on pioglitazone and metformin. It is unusual that the metformin is only dosed at bedtime, but given that she has had good control will not change her metformin dosing. # Hypertension. Continue nebivolol. * Consider initiating Donnell inhibitor or ARB as she is diabetic. Await labs and continue to monitor blood pressure. # Constipation. Responding to bowel protocol. Continue polyethylene glycol daily and senna/docusate twice daily. We will have bisacodyl suppository, as well as an enema available. # History of diabetic peripheral neuropathy. Continue pregabalin. # History of restless leg syndrome. Continue pramipexole. # Gastroesophageal reflux disorder. Continue pantoprazole. # Prophylaxis. She has significant deficits to mobility, and given obesity and age she is at high risk for deep venous thrombosis. Continue enoxaparin and sequential compression devices on the legs at night. Attended staffing, 15 min. Discussed with case management, dietitian, nursing, PT, OT. Due to pain limiting ability to participate in rehabilitation she was sent for imaging as above and admitted to [facility] for further evaluation and management per Neurosurgery. In this process her condition and plan were discussed further with Radiology as well as Neurosurgery. 05/13/17 17:37 Subjective: Continues to have left flank pain. She is comfortable when supine and slept well but has considerable pain when arising to standing and when standing. She has not been willing to attempt to ambulate beyond transfers to the commode. No dysuria. Pain is steady and not crampy. No fevers, chills, cough, dyspnea. Objective: Vital Signs Temp Pulse Resp BP Pulse Ox 37.0 C 64 12 110/74 94 05/13/17 06:50 05/13/17 06:50 05/13/17 06:50 05/13/17 06:50 05/13/17 06:50 Laboratory Results 05/13/17 06:00 05/12/17 05/13/17 05/14/17 05:59 05:59 05:59 Intake Total 140 700 120 Output Total 400 501 500 Balance -260 199 -380 - Time Spent With Patient Time Spent With Patient: Greater than 35 min floor time today, including more than 50% of time in coordination of care during staffing and in discussions with Radiology and Neurosurgery, and counseling patient and her daughter. Physical Exam - Physical Exam General Appearance: WD/WN, alert, no apparent distress, moderate distress ( Grimaces when arising from seated.), obese Respiratory: No respiratory distress, No accessory muscle use Cardiac/Chest: edema (2+ bilateral lower extremities) Skin: normal color, warm/dry Neuro/Psych: no motor/sensory deficits, alert, normal mood/affect, oriented x 3 ICD10 Worksheet Patient Problems: Problems Problem Status Onset Degenerative disc disease, lumbar Acute Pseudarthrosis Acute
[2017-05-13] MEDS ORDERED: oxyCODONE IR 15 MG TAB PO ONE (12:21)
[2017-05-13 17:13] LABS: URIC ACID 6.5 mg/dL (2.5-6.8)
--- NOTE | 2017-05-13 18:35 | GDS ---
[f rep st] DISCHARGE SUMMARY ADMITTING DIAGNOSIS: Debility, status post lumbar surgery. DISCHARGE DIAGNOSIS: Debility, status post lumbar surgery. OTHER DISCHARGE DIAGNOSES: 1. Left flank pain. 2. Hyponatremia. 3. Hypoxemia. CONSULTATIONS: There were none. PROCEDURES: She had a CT scan of the lumbar spine and the abdomen. COMPLICATIONS: Left flank pain. HISTORY/HOSPITAL COURSE: This patient was admitted from [facility] where she had extensive lumbar surgery for scoliosis due to failed hardware on 05/03/2017. She had blood loss and hypotension requiring transfusion and albumin infusion after surgery. She had hypoxia and acute encephalopathy. She had respiratory failure with hypercapnia and was treated with BiPAP. She had bilateral lower extremity edema. She was eventually medically stabilized and was appropriate for inpatient rehabilitation. Her rehabilitation course was complicated by severe left flank pain. Gastrointestinal and urinary tract abnormalities were ruled out. Constipation was treated, she was not in urinary retention and there was no sign of urinary or renal infection. The pain was significantly impairing her ability to participate in therapies. She was sent to [facility] for imaging which revealed a possible impingement on the L3 nerve root by surgical hardware. From there, she was evaluated by the neurosurgery service, who admitted her for further evaluation and treatment. During her stay, she was noted to have hyponatremia and as of the time of dictation of this discharge summary, urine and serum osmolalities as well as urine sodium are pending. Uric acid was on the high end of normal, so it is unclear at present whether it is consistent with SIADH. It is conceivable that it is due to metolazone, so it was advised that metolazone not be continued in the hospital. She had hypoxemia with a question of congestive heart failure. BNP was checked on the day of discharge and it was indeterminate, it was elevated but not high enough to convincingly rule in heart failure. She was maintained on oxygen. She has a history of sleep apnea but had been noncompliant with CPAP. She has CPAP which is being shipped by overnight delivery from her family in [place] and will likely arrive at inpatient rehabilitation so if possible, it will be forwarded to [facility] for her to use. Diabetes mellitus had been well controlled on pioglitazone and metformin. The metformin was dosed only at bedtime. Given her lower extremity edema, it might be worthwhile to discontinue the pioglitazone and increase the metformin to twice daily. Blood pressure was adequately controlled on nebivolol. She had constipation which responded to her bowel protocol with polyethylene glycol and senna/docusate. She was noted to have continued constipation on the abdominal CT that was done to evaluate her pain, so conceivably, her bowel protocol should be increased. CONDITION UPON DISCHARGE: Guarded. Activity is significantly limited by pain which was refractory to titration of opiates. It is hoped that she can resume therapies towards functional independence after evaluation and treatment in the hospital. Diet: ADA 1800 kilocalories per day. DATE OF NEXT APPOINTMENT: She will follow up with the Neurosurgery service at [facility]. MEDICATIONS ON DISCHARGE: 1. Acetaminophen 1000 mg q.8 hours p.r.n. 2. Cholecalciferol 1000 units p.o. daily. 3. Enoxaparin 40 mg subcutaneous daily. 4. Folic acid 1 mg p.o. daily. 5. Furosemide 20 mg p.o. daily. 6. Metformin 1000 mg p.o. at bedtime. 7. Methocarbamol 750 mg p.o. four times daily p.r.n. 8. Morphine sustained release 15 mg p.o. twice daily. 9. Nebivolol 20 mg p.o. at bedtime. 10. Oxycodone 5-15 mg p.o. q.3 hours p.r.n. 11. Pantoprazole 40 mg p.o. daily. 12. Pioglitazone 45 mg p.o. daily. 13. Polyethylene glycol 17 g p.o. daily. 14. Potassium chloride 20 mEq p.o. daily. 15. Pramipexole 2 mg p.o. at bedtime. 16. Pregabalin 150 mg p.o. at bedtime. 17. Senna/docusate 2 tabs p.o. twice daily. 18. Vitamin B complex 1 each p.o. daily. ISSUES TO BE ADDRESSED AT FOLLOWUP: Severe left flank pain, to be assessed and treated further per Neurosurgery. It is hoped that after her hospitalization, she can return to inpatient rehabilitation with a goal of sufficient function for discharge home with her family in [place]. /[id number]/MODL MTDD
--- NOTE | 2017-05-17 11:44 | PDOREHIP ---
Admission [facility] - Admission - 3 Day Assessment Period Admission Date/Day 1: 05/11/17 Day 2: 05/12/17 Day 3: 05/13/17 - Active Diagnoses Comorbidities and Co-existing Conditions at Admission: 06605. DM (e.g. diabetic retinopathy, nephropathy, and neuropathy) - Skin Conditions Unhealed Pressure Ulcer (1 or more/Stage 1 or >)-Admission: 0. No (Late entry for 05/11/17) Discharge [facility] - Discharge - 3 Day Assessment Period 2 Days Prior to Anticipated Discharge Date: 05/25/17 1 Day Prior to Anticipated Discharge Date: 05/26/17 Anticipated Discharge Date: 05/27/17
--- NOTE | 2017-05-17 11:44 | PDOREHIP ---
Admission [facility] - Admission - 3 Day Assessment Period Admission Date/Day 1: 05/11/17 Day 2: 05/12/17 Day 3: 05/13/17 Discharge [facility] - Discharge - 3 Day Assessment Period 2 Days Prior to Anticipated Discharge Date: 05/25/17 1 Day Prior to Anticipated Discharge Date: 05/26/17 Anticipated Discharge Date: 05/27/17 - Discharge Skin Conditions Unhealed Pressure Ulcer (1 or more/Stage 1 or >)-Discharge: 0. No (Late entry for 05/13/17)
== END 2017-05-13 17:58 | disposition still patient (30) | DRG 561 ==
LOC: BREH 14:00
PROVIDERS: ADMIT Internal Medicine; ATTEND Internal Medicine
PROC: F0636ZZ Communicative/Cognitive Integration Skills Treatment of Neurological System - Whole Body (ICD-10-PCS; principal; 2017-05-11)
PROC: F08Z7ZZ Vocational Activities and Functional Community or Work Reintegration Skills Treatment (ICD-10-PCS; principal; 2017-05-11)
PROC: F07M3ZZ Motor Function Treatment of Musculoskeletal System - Whole Body (ICD-10-PCS; principal; 2017-05-11)
DX: Z47.82 Encounter for orthopedic aftercare following scoliosis surgery (principal); Z98.1 Arthrodesis status; E66.01 Morbid (severe) obesity due to excess calories; Z68.35 Body mass index [BMI] 35.0-35.9, adult; R09.02 Hypoxemia; G47.33 Obstructive sleep apnea (adult) (pediatric); K59.00 Constipation, unspecified; E11.42 Type 2 diabetes mellitus with diabetic polyneuropathy; Z79.84 Long term (current) use of oral hypoglycemic drugs; I10 Essential (primary) hypertension; K21.9 Gastro-esophageal reflux disease without esophagitis; G25.81 Restless legs syndrome; Z96.653 Presence of artificial knee joint, bilateral; R10.32 Left lower quadrant pain
CPT/HCPCS: 97162-GP; 97166-GO; 97530-GO; 97530-GP; 97535-GO; J1650

== ENCOUNTER 2017-05-13 17:06 | Inpatient (IN) | payer OTHER ==
[2017-05-13] MEDS ORDERED: ONDANSETRON 4 MG/2 ML VIAL IVP PRN (17:23)
[2017-05-13] MEDS ORDERED: ONDANSETRON DISINTEGRATING 4 MG TAB PO PRN (17:23)
[2017-05-13] MEDS: oxyCODONE IR 5 MG TAB PO PRN ×2 (17:46→22:50)
--- NOTE | 2017-05-13 18:10 | GHP ---
[f rep st] HISTORY AND PHYSICAL DATE OF ADMISSION: 05/13/2017 DIAGNOSIS: Left low back pain and posterior left leg pain. HISTORY OF PRESENT ILLNESS: The patient is a pleasant 76-year-old female who underwent a T10-L5 fusi on with T12-L1, L1-2, L2-3, L3-4, L4-5 transforaminal lumbar interbody fusions on 05/03/[address] Han. Postoperatively, the patient was transferred to [facility] inpatient rehab where she wa s currently residing today. Dr. Larson contacted Dr. Han earlier today stating the patient was having worsening left-sided low back pain and left posterior leg pain requiring more and more na rcotics. The patient was subsequently transferred to [facility] for evaluation and u nderwent a CT of the abdomen, as well as the thoracic and lumbar spine. These imaging studies demons trated a medially positioned left L2 pedicle screw. The patient is not having any fevers, chills, or sweats. She has generalized weakness from deconditi oning, however, was working with therapy while in rehab reasonably well. She is immobilized in a TLS O brace. She does not report any specific motor weakness, sensory changes, or bowel or bladder esparza es. Her main complaint is focal left-sided low back, flank pain, and left posterior thigh pain. It was discussed with Dr. Han that the patient should be admitted for pain control and for consideration of revision surgery next week to address the medially placed left L2 pedicle screw. PAST MEDICAL HISTORY: 1. Hypertension. 2. Gastroesophageal reflux disease. 3. Diabetes. 4. Scoliosis. 5. Back pain. 6. Obstructive sleep apnea. 7. Morbid obesity. SOCIAL HISTORY: The patient does not drink or smoke. She did smoke prior to surgery. FAMILY HISTORY: Significant for hypertension and diabetes. REVIEW OF SYSTEMS: Negative other than reported in the HPI. PHYSICAL EXAMINATION: GENERAL: A tired-appearing 76-year-old female in mild discomfort. HEAD, EYES , EARS, NOSE, THROAT: Within normal limits. EXTREMITIES: Within normal limits. Her thoracolumbar incision is healing without any drainage, redness, or pain. There is some scab present at the inferi or portion of the incision without drainage, redness or pain. NEUROLOGIC: Patient is awake, alert, and oriented x4. Cranial nerves 2-12 are intact to gross exami nation. Speech is fluent. She has 5-/5 strength in bilateral iliopsoas and otherwise 5/5 strength w ith individual muscle strength testing in a seated position in her wheelchair in clinic today. Sensa tion is grossly intact to light touch. DATA REVIEW: Lumbar CT performed today demonstrates postsurgical changes with a T10 to L5 fusion. T he left L2 pedicle screw extends through the medial cortex into the left lateral recess. No other fi ndings or hardware complication are noted. Bone grafts appear to be well positioned, and there is no evidence of acute fracture. Postoperative hematoma or seroma is present in the subcutaneous fat pos teriorly. CT of the abdomen and pelvis performed today demonstrates similar findings as above. Constipation is present. Diverticulosis in the sigmoid colon and descending colon is present without evidence for d iverticulitis. No evidence of retroperitoneal hematoma. IMPRESSION: This is a 76-year-old female who underwent a T10-L5 fusion with 5 level transforaminal l umbar interbody fusion on 05/03/2017. Since undergoing surgery, the patient has had some degree of l eft-sided low back pain and left posterior leg pain that acutely worsened today. This may be related to her medially positioned left L2 pedicle screw. She remains neurologically stable. PLAN: All above issues were discussed with the patient and her daughter in the clinic today in [facility]. This information was discussed with Dr. Han over the phone. Dr. Han personal ly reviewed her imaging studies. At this time, Dr. Han recommends the patient be admitted to the hospital for pain control and medical optimization for possible revision surgery next Tuesday f or removal of the left L2 pedicle screw and revision of the fusion. A hospitalist consult has been o btained, and I spoke directly with Dr. Akers today, who agrees to see the patient. /[id number]/MODL
[2017-05-13 18:51] LABS: ANION GAP 7 mEq/L (8-16); CARBON DIOXIDE 40 mEq/l (22-31); CHLORIDE 84 mEq/L (97-110); CREATININE 0.7 mg/dL (0.6-1.0); GLOMERULAR FILTRATION RATE > 60; GLUCOSE 97 mg/dL (70-100); MAGNESIUM 1.5 mg/dL (1.6-2.3); POTASSIUM 3.8 mEq/L (3.5-5.2); SODIUM 131 mEq/L (134-144)
[2017-05-13] MEDS ORDERED: ACETAMINOPHEN 500 MG TAB PO PRN (19:05)
[2017-05-13] MEDS: morphINE SR 15 MG TAB PO SCH (19:48)
[2017-05-13] MEDS: METHOCARBAMOL 750 MG TAB PO PRN (19:48)
[2017-05-13] MEDS: metFORMIN HCL 500 MG TAB PO SCH (19:49)
[2017-05-13] MEDS: PREGABALIN 75 MG CAP PO SCH (19:49)
[2017-05-13] MEDS: NEBIVOLOL HCL 5 MG TAB PO SCH (19:49)
[2017-05-13] MEDS: SENNOSIDES/DOCUSATE SODIUM TAB PO SCH (19:50)
[2017-05-13] MEDS ORDERED: NON-FORMULARY NEW DRUG (Nebivolol Hcl [Bystolic] 20 MG) PO SCH (21:00)
[2017-05-13] MEDS ORDERED: NON-FORMULARY NEW DRUG (Metformin Hcl [Glucophage 1000 Mg] 1,000 MG) PO SCH (21:00)
[2017-05-13] MEDS: PRAMIPEXOLE 1 MG TAB PO SCH (22:46)
--- NOTE | 2017-05-13 23:56 | GCON ---
[f rep st] CONSULTATION DATE OF CONSULTATION: 05/13/2017 HISTORY OF PRESENT ILLNESS: Ms. Blanchard is a pleasant 76-year-old female with a history of hypertension, diabetes, obesity, and recent spine surgery who was discharged recently to a local rehab. She is complaining of ongoing back pain with worsening left-sided back pain and left posterior leg pain with escalating doses of narcotics. She was transferred here. CT of the abdomen showed that her L2 pedicle screw was abnormal. When I speak with the patient, she is well. She denies fever, chills, cough, sputum, nausea, vomiting, diarrhea. She states her diabetes is typically well controlled. She has been suffering lately with weakness related to lower back pain, but previously, she would do pool aerobics and pool walking without any exertional chest pain or undue shortness of breath. She has moved her bowels since the surgery. She says her pain at the moment is reasonably well controlled. REVIEW OF SYSTEMS: Complete 10-point review of systems conducted, negative except as in the HPI. PAST MEDICAL HISTORY: 1. CO2 retention while on the ventilator. 2. Diabetes. 3. Reflux. 4. Sleep apnea. 5. Scoliosis. 6. Morbid obesity. 7. Hypertension. SOCIAL HISTORY: No tobacco, alcohol, or illicit drugs. FAMILY HISTORY: Notable for diabetes and hypertension. ALLERGIES: Bleach and penicillin. MEDICATIONS: Recent medications include vitamin B, nebivolol, Robaxin. Furosemide, folic acid, enoxaparin, vitamin D3, Tylenol, pioglitazone, pantoprazole, pramipexole, potassium chloride, MiraLAX, pregabalin, metformin 1000 h.s., senna docusate, oxycodone, morphine sulfate Contin 15 twice daily. PHYSICAL EXAMINATION: VITALS: Today, temperature 36.5, blood pressure 130/68, pulse 68, breathing 18 times a minute, 90 on 2 L. GENERAL: No acute distress. HEENT: Sclerae anicteric. Oropharynx clear. Mucous membranes are moist. NECK: Supple without lymphadenopathy or JVD. LUNGS: Clear to auscultation bilaterally. HEART: S1, S2. ABDOMEN: Soft, nontender, nondistended. LOWER EXTREMITIES: Show trace edema bilaterally. Calves are nontender. SKIN: Her right upper forearm shows a lot of bruising and ecchymoses. It sounds like she had an IV infiltrate why she was receiving blood. It is moderately tender but not tense. There is no evidence of compartment syndrome. LABORATORY: Chem-7 this morning shows sodium 132, potassium 88, bicarb 37, BUN 13, creatinine 0.7, glucose 117. BNP is elevated at 643. We have no prior for comparison. There are no films, although she recently had L-spine CT and abdomen and pelvis CT done earlier today, and they showed the aforementioned findings. I have reviewed these images myself. I have discussed the case with Jacob Mckay. ASSESSMENT AND PLAN: A 76-year-old female, here probably needing reoperation. 1. Back pain. Management per Neurosurgery. I have taken the liberty of reconciling her medications, and restarting her current. 2. Metabolic alkalosis. I think this is volume contraction from Lasix as well as maybe some CO2 retention. She certainly has a physiology to retain CO2 secondary to obesity, hypoventilation syndrome. I think for today, I will hold her Lasix and we can follow. 3. Hypertension. Continue her nebivolol. 4. Diabetes. Review of her sugars show she is largely at goal just on metformin and Actos. We can continue those medications. It may be reasonable to discontinue her metformin the day prior to surgery. 5. Prophylaxis. She is currently on prophylactic enoxaparin. I will continue that for now but should be stopped at Neurosurgeries discretion. 6. Pain. Continue her medications as is. Thank you for this consultation. Hospital Medicine will follow. /[id number]/MODL MTDD
[2017-05-14] MEDS: oxyCODONE IR 5 MG TAB PO PRN ×5 (05:14→16:24)
[2017-05-14] MEDS: METHOCARBAMOL 750 MG TAB PO PRN ×2 (05:15→12:37)
--- NOTE | 2017-05-14 07:20 | NEUSURGPN ---
Assessment/Plan: Assessment: 76 yo female that is admitted to us with IM on board for left sided LBP and left posterior leg pain as well Plan: -pt is s/p T10-L5 fusion on 05/04/17 with 5 level TLIF -pt with left lower back and left posterior leg pain and CT L spine shows medially placed L2 screw -plan for surgery on Tuesday to reposition screw -d/w Pt the surgery and plan -PT/OT ordered -brace when out of bed -call with any questions or concerns -d/w Dr Amanda Caldwellpt understands and agrees Subjective: Awake and alert. NAD. Pt with continued LLE pain and left lower back pain. No pino/neck/chest/abd or gu complaints. No f/c/n/v/d. Objective: Awake and alert. NAD PERRLA/EOMI no droop CN 2-12 grossly intact +lt touch 5/5 BUE/BLE = CDI Neuro Check Frequency: per routine Urinary Catheter in Place: No - Physician Discussed Patient with Dr.: Guille Neurosurgery Physical Exam - Vitals, I&O, Labs I and O 05/13/17 05/14/17 05/15/17 05:59 05:59 05:59 Intake Total 500 Output Total 1 Balance 499 Weight 104.326 kg Intake: Oral (ml) 500 Output: Urine (ml) 1 Bedside Commode 1 Vital Signs Temp Pulse Resp BP Pulse Ox 36.8 C 66 18 108/62 97 05/14/17 03:55 05/14/17 03:55 05/14/17 03:55 05/14/17 03:55 05/14/17 03:55 Laboratory Results 05/13/17 18:08 ICD10 Worksheet Patient Problems: Problems Problem Status Onset Degenerative disc disease, lumbar Acute Pseudarthrosis Acute
[2017-05-14] MEDS ORDERED: FUROSEMIDE 20 MG TAB PO SCH (09:00)
[2017-05-14] MEDS ORDERED: NON-FORMULARY NEW DRUG (Pioglitazone Hcl [Actos] 45 MG) PO SCH (09:00)
[2017-05-14] MEDS ORDERED: VITAMIN B COMPLEX 1 EA CAP/TAB PO SCH (09:00)
[2017-05-14] MEDS: ENOXAPARIN 40 MG/0.4 ML SYR SC SCH (09:08)
[2017-05-14] MEDS: CHOLECALCIFEROL VIT D3 1,000 UNITS TAB PO SCH (09:09)
[2017-05-14] MEDS: morphINE SR 15 MG TAB PO SCH ×2 (09:09→21:41)
[2017-05-14] MEDS: VITAMIN B COMPLEX 1 EA CAP/TAB PO SCH (09:09)
[2017-05-14] MEDS: POTASSIUM CL 20 MEQ TAB PO SCH (09:09)
[2017-05-14] MEDS: PIOGLITAZONE HCL 15 MG TAB PO SCH (09:09)
[2017-05-14] MEDS: PANTOPRAZOLE SODIUM 40 MG TAB PO SCH (09:10)
[2017-05-14] MEDS: POLYETHYLENE GLYCOL 3350 17 GM PKT PO SCH (09:10)
[2017-05-14] MEDS: SENNOSIDES/DOCUSATE SODIUM TAB PO SCH ×3 (09:10→21:57)
[2017-05-14] MEDS: FOLIC ACID 1 MG TAB PO SCH (09:10)
--- NOTE | 2017-05-14 11:14 | HOSPPROG ---
Hospitalist Progress Note Assessment/Plan: DIAGNOSES: -status post lumbar spine surgery late April, now with requirement for hardware removal and revision -expected postop anemia after previous surgery, needs to be rechecked at this time so we know where starting point; did require transfusion during previous admission -diabetes mellitus, will need monitoring -chronic hypertension stable here so far -history of sleep apnea PLANS: -will recheck hemoglobin, chemistries preop for baseline -outside of any unanticipated abnormality on lab tests there is no reason for any further medical assessment or intervention prior to proceeding with surgery -she does have chronic sleep apnea and recommend using CPAP here at night and at other times as necessary; this does slightly increase the risk for postoperative respiratory complications -will continue fingerstick monitoring here SUBJECTIVE: Still with significant back pain Otherwise eating well bowel and bladder working well, no respiratory symptoms, no fever symptoms OBJECTIVE Vitals reviewed: Stable without fever Exam: alert oriented, looks mildly uncomfortable skin warm dry color ok resps not labored lungs clear BSs heart regular abd soft nondistended nontender, bowel sounds present limbs warm, no edema iv site ok Objective: Vital Signs Temp Pulse Resp BP Pulse Ox 36.4 C 66 12 128/59 H 95 05/14/17 08:00 05/14/17 08:00 05/14/17 08:00 05/14/17 08:00 05/14/17 08:00 Laboratory Results 05/13/17 18:08 05/13/17 05/14/17 05/15/17 06:59 06:59 06:59 Intake Total 500 Output Total 1 Balance 499 ICD10 Worksheet Patient Problems: Problems Problem Status Onset Degenerative disc disease, lumbar Acute Pseudarthrosis Acute
--- NOTE | 2017-05-14 14:06 | ASMTCMCOM ---
CM Note CM Note Notes: Pt in from [facility] inpatient rehab for pain control (she she was d/c from [facility] to inpatient rehab 05/11/17), will have revision Tuesday05/16/17. Therapy unable to work w pt today due to pain. CM to follow. D/c plan of care: After revision assess if pt appropriate for return to [facility] inpatient rehab. Date Signed: 05/14/2017 02:06 PM Electronically Signed By:BINU Stevens
[2017-05-14] MEDS ORDERED: MAGNESIUM HYDROXIDE 30 ML UDCUP PO PRN (14:34)
[2017-05-14] MEDS ORDERED: BISACODYL 10 MG SUPP PR PRN (14:34)
[2017-05-14] MEDS ORDERED: POLYETHYLENE GLYCOL 3350 17 GM PKT PO PRN (14:34)
[2017-05-14] MEDS ORDERED: LACTULOSE 20 GM/30 ML UDCUP PO PRN (14:34)
[2017-05-14] MEDS ORDERED: NALOXONE HCL 0.4 MG/ML INJ IVP PRN (17:04)
[2017-05-14] MEDS: HYDROmorphONE/DILAUDID 6 MG/30 ML PCA IV PRN (17:35)
[2017-05-14] MEDS: DIAZEPAM 5 MG TAB PO PRN (18:56)
[2017-05-14] MEDS: PRAMIPEXOLE 1 MG TAB PO SCH (21:36)
[2017-05-14] MEDS: NEBIVOLOL HCL 5 MG TAB PO SCH (21:38)
[2017-05-14] MEDS: metFORMIN HCL 500 MG TAB PO SCH (21:41)
[2017-05-14] MEDS: PREGABALIN 75 MG CAP PO SCH (21:41)
[2017-05-15 04:57] LABS: % IMMATURE GRANULYOCYTES 0.7 % (0.0-1.1); ABSOLUTE IMMATURE GRANULOCYTES 0.07 10^3/uL (0.00-0.10); ADD DIFF? NO; ADD MORPH? NO; ADD SCAN? NO; ATYPICAL LYMPHOCYTE FLAG 0 (0-99); FRAGMENT RBC FLAG 0 (0-99); HEMATOCRIT 29.3 % (38.0-47.0); HEMOGLOBIN 9.7 g/dL (12.6-16.3); LEFT SHIFT FLG 0 (0-99); LIPEMIA HEMOLYSIS FLAG 80 (0-99); MEAN CELL HEMOGLOBIN 32.2 pg (27.9-34.1); MEAN CELL HEMOGLOBIN CONCENTR. 33.1 g/dL (32.4-36.7); MEAN CELL VOLUME 97.3 fL (81.5-99.8); MEAN PLATELET VOLUME 9.5 fL (8.7-11.7); PLATELET CLUMPS FLAG 0 (0-99); PLATELET COUNT 323 10^3/uL (150-400); RED BLOOD CELL COUNT 3.01 10^6/uL (4.18-5.33); RED CELL DISTRIBUTION WIDTH 14.7 % (11.5-15.2)
[2017-05-15 05:12] LABS: ANION GAP 10 mEq/L (8-16); CALCIUM 8.5 mg/dL (8.5-10.4); CARBON DIOXIDE 35 mEq/l (22-31); CHLORIDE 88 mEq/L (97-110); CREATININE 0.7 mg/dL (0.6-1.0); GLOMERULAR FILTRATION RATE > 60; GLUCOSE 106 mg/dL (70-100); POTASSIUM 3.7 mEq/L (3.5-5.2); SODIUM 133 mEq/L (134-144)
--- NOTE | 2017-05-15 08:17 | NEUSURGPN ---
Assessment/Plan: Assessment: 76 yo female that is admitted to us with IM on board for left sided LBP and left posterior leg pain as well Plan: -pt is s/p T10-L5 fusion on 05/04/17 with 5 level TLIF -pt with left lower back and left posterior leg pain and CT L spine shows medially placed L2 screw -orders in for surgery -NPO after midnight -labs reviewed -plan for surgery on Tuesday to reposition screw -consents reviewed with pt and surgery covered in detail -d/w Pt the surgery and plan-she understands and agrees -PT/OT ordered -brace when out of bed -call with any questions or concerns -d/w Dr Patel -pt understands and agrees Subjective: Awake and alert. Pt with continued lower back pain. No pino/neck/chest/abd or gu complaints. No new complaints or concerns. Objective: Awake and alert. NAD PERRLA/EOMI no droop CN 2-12 grossly intact +lt touch 5/5 BUE/BLE =, limited due to pain CDI Neuro Check Frequency: per routine Urinary Catheter in Place: No - Physician Discussed Patient with DrSenia: [facility] Neurosurgery Physical Exam - Vitals, I&O, Labs I and O 05/14/17 05/15/17 05/16/17 05:59 05:59 05:59 Intake Total 500 600 Output Total 1 200 Balance 499 400 Weight 104.326 kg Intake: Oral (ml) 500 600 Output: Urine (ml) 1 200 Bedside Commode 1 200 Other: Intake Quantity Yes Sufficient Number of Voids Bedside Commode 1 Number of Stools Bedside Commode 1 Vital Signs Temp Pulse Resp BP Pulse Ox 36.6 C 60 12 116/49 L 100 05/15/17 06:20 05/15/17 07:56 05/15/17 07:56 05/15/17 07:56 05/15/17 07:56 Laboratory Results 05/15/17 04:27 05/15/17 04:27 ICD10 Worksheet Patient Problems: Problems Problem Status Onset Degenerative disc disease, lumbar Acute Pseudarthrosis Acute
[2017-05-15] MEDS: PANTOPRAZOLE SODIUM 40 MG TAB PO SCH (08:25)
[2017-05-15] MEDS: POTASSIUM CL 20 MEQ TAB PO SCH (08:26)
[2017-05-15] MEDS: CHOLECALCIFEROL VIT D3 1,000 UNITS TAB PO SCH (08:26)
[2017-05-15] MEDS: PIOGLITAZONE HCL 15 MG TAB PO SCH (08:26)
[2017-05-15] MEDS: VITAMIN B COMPLEX 1 EA CAP/TAB PO SCH (08:26)
[2017-05-15] MEDS: POLYETHYLENE GLYCOL 3350 17 GM PKT PO SCH (08:27)
[2017-05-15] MEDS: ENOXAPARIN 40 MG/0.4 ML SYR SC SCH (08:27)
[2017-05-15] MEDS: SENNOSIDES/DOCUSATE SODIUM TAB PO SCH ×4 (08:27→20:25)
[2017-05-15] MEDS: FOLIC ACID 1 MG TAB PO SCH (08:27)
[2017-05-15] MEDS: morphINE SR 15 MG TAB PO SCH ×2 (08:27→20:23)
[2017-05-15] MEDS: HYDROmorphONE/DILAUDID 6 MG/30 ML PCA IV PRN ×2 (13:52→21:43)
[2017-05-15] MEDS: oxyCODONE IR 5 MG TAB PO PRN ×2 (16:47→20:27)
[2017-05-15] MEDS: CYCLOBENZAPRINE 10 MG TAB PO PRN (16:48)
--- NOTE | 2017-05-15 17:31 | HOSPPROG ---
Hospitalist Progress Note Assessment/Plan: DIAGNOSES: -status post lumbar spine surgery late April, now with requirement for hardware removal and revision -hypercarbic and hypoxemic respiratory failure, mostly chronic, history of sleep apnea # reviewing her chart she has elevated CO2 levels on her chemistry panels since her surgery in late April; I think this is due to a combination of her sleep apnea, probably awake hypoventilation syndrome as well, and with the addition of ongoing narcotic pain medicines since surgery and application of oxygen here in the hospital with her oxygen saturations most typically being held in 96-98% range; it will be important to continue CPAP during all sleep here, a do very carefully monitor her respirations and her narcotic use, and to not over use her oxygen - her goal oxygen saturations here should be in the 88-90% range, no need to be at 96-98% as she typically has been managed -expected postop anemia after previous surgery currently stable, had received transfusion during previous admission in postop setting -diabetes mellitus, sugars in good range so far -chronic hypertension stable here so far PLANS: -outside of any unanticipated abnormality on lab tests there is no reason for any further medical assessment or intervention prior to proceeding with surgery -I reviewed with the nurses the need to try and keep her oxygen saturations down at 88-90%, to use CPAP whenever she is asleep, and to be careful to monitor her narcotics and respirations very closely during the preop and postoperative periods -will continue fingerstick monitoring here SUBJECTIVE: Back pain better controlled now on a [employer] pump No new radicular symptoms and no other new symptoms OBJECTIVE Vitals reviewed: Stable without fever Exam: alert oriented, looks mildly uncomfortable skin warm dry color ok resps not labored lungs clear BSs heart regular abd soft nondistended nontender, bowel sounds present limbs warm, no edema iv site ok Laboratory data: Stable CBC with hemoglobin 9.7 Chemistry showing a significant elevation of CO2 On review of her records from this hospital admission and her last hospital admission I see that she has had significant increase in her CO2 levels on serum chemistries since her surgery. During that time she has been consistently using significant narcotic pain medicine, and has been also receiving oxygen therapy and her oxygen saturations to because he kept in the 96 done 98% range. Objective: Vital Signs Temp Pulse Resp BP Pulse Ox 36.6 C 67 16 128/45 H 91 L 12/10/17 16:00 05/15/17 16:00 05/15/17 16:00 05/15/17 16:00 05/15/17 16:00 Laboratory Results 05/15/17 04:27 05/15/17 04:27 05/14/17 05/15/17 05/16/17 06:59 06:59 06:59 Intake Total 500 600 200 Output Total 1 200 Balance 499 400 200 - Time Spent With Patient Time Spent with Patient: greater than 35 minutes Time Spent with Patient: Greater than 35 minutes spent on this patients care, greater than 50% of time spent counseling, educating, and coordinating care regarding the above mentioned plan. ICD10 Worksheet Patient Problems: Problems Problem Status Onset Degenerative disc disease, lumbar Acute Pseudarthrosis Acute
[2017-05-15] MEDS: METHOCARBAMOL 500 MG TAB PO SCH (20:22)
[2017-05-15] MEDS: NEBIVOLOL HCL 5 MG TAB PO SCH (20:23)
[2017-05-15] MEDS: metFORMIN HCL 500 MG TAB PO SCH (20:23)
[2017-05-15] MEDS: PREGABALIN 75 MG CAP PO SCH (20:24)
[2017-05-15] MEDS: PRAMIPEXOLE 1 MG TAB PO SCH (20:24)
[2017-05-16] MEDS: oxyCODONE IR 5 MG TAB PO PRN ×2 (05:19→19:51)
--- NOTE | 2017-05-16 07:53 | NEUSURGPN ---
Assessment/Plan: Assessment: 76 yo female that is admitted to us with IM on board for left sided LBP and left posterior leg pain as well Plan: -Patien is s/p T10-L5 fusion on 05/04/17 with 5 level TLIF -Left lower back and left posterior leg pain and CT L spine shows medially placed L2 screw -Dr Patel will take to surgery this afternoon for screw removal -Keep patient NPO -Consent on chart, patient is marked -PT/OT ordered -brace when out of bed -Please call neurosurgery with any questions/concerns -Discussed patient with Dr Patel Subjective: Patient resting on cpap, awaiting surgery today Objective: AxO x3 PERRLA/EOMI no droop CN 2-12 grossly intact +lt touch 5/5 BUE/BLE =, limited due to pain CDI Neuro Check Frequency: per routine Urinary Catheter in Place: No - Physician Discussed Patient with : [facility] Neurosurgery Physical Exam - Vitals, I&O, Labs I and O 05/15/17 05/16/17 05/17/17 05:59 05:59 05:59 Intake Total 600 200 Output Total 200 400 Balance 400 -200 Intake: Oral (ml) 600 200 Output: Urine (ml) 200 400 Bedside Commode 200 400 Other: Intake Quantity Yes Sufficient Number of Voids Bedside Commode 1 1 Number of Stools Bedside Commode 1 1 Vital Signs Temp Pulse Resp BP Pulse Ox 36.5 C 60 18 129/68 H 97 05/16/17 05:59 05/16/17 05:59 05/16/17 05:59 05/16/17 05:59 05/16/17 05:59 Laboratory Results 05/15/17 04:27 05/15/17 04:27 ICD10 Worksheet Patient Problems: Problems Problem Status Onset Degenerative disc disease, lumbar Acute Pseudarthrosis Acute
[2017-05-16] MEDS: PANTOPRAZOLE SODIUM 40 MG TAB PO SCH (09:56)
[2017-05-16] MEDS: FOLIC ACID 1 MG TAB PO SCH (09:57)
[2017-05-16] MEDS: VITAMIN B COMPLEX 1 EA CAP/TAB PO SCH (09:57)
[2017-05-16] MEDS: CHOLECALCIFEROL VIT D3 1,000 UNITS TAB PO SCH (09:57)
[2017-05-16] MEDS: SENNOSIDES/DOCUSATE SODIUM TAB PO SCH ×4 (09:58→22:04)
[2017-05-16] MEDS: PIOGLITAZONE HCL 15 MG TAB PO SCH (09:58)
[2017-05-16] MEDS: POLYETHYLENE GLYCOL 3350 17 GM PKT PO SCH (09:59)
[2017-05-16] MEDS: morphINE SR 15 MG TAB PO SCH ×2 (09:59→21:26)
[2017-05-16] MEDS: POTASSIUM CL 20 MEQ TAB PO SCH (10:02)
[2017-05-16] MEDS ORDERED: ceFAZolin 2 GM/SWFI 2 GM/20 ML SYR IVP ONE (11:00)
--- NOTE | 2017-05-16 11:32 | HOSPPROG ---
Hospitalist Progress Note Assessment/Plan: Patient is a 76-year-old female with history of hypertension, diabetes and obesity. She had recent spine surgery. She came back the hospital with ongoing back pain worse on the left side left posterior leg pain. CT of the abdomen showed that her L2 pedicle screw was abnormal. Today is my 1st encounter with the patient. Chart reviewed. * back pain -status post T10-L5 fusion on May 04 -to get further surgery -getting an MRI now and patient tearful about being in pain/will order dose of iv Dilaudid x one now prior to procedure * anemia in the postop setting -recheck labs in a.m. * diabetes mellitus -place metformin on hold * hypertension -bp stable * sleep apnea -continue CPAP *mild hyponatremia -recheck in a.m. * morbid obesity with a BMI of 37 *dvt prophylaxis: LMWH *Plan: possible surgery today/ will get repeat labs in a.m. and place Lovenox on hold, will ask Neurosurgery when to resume Subjective: Poly is crying about severe back pain. Objective: Vital Signs Temp Pulse Resp BP Pulse Ox 36.0 C 67 16 114/72 96 05/16/17 08:00 05/16/17 10:00 05/16/17 08:00 05/16/17 10:00 05/16/17 10:00 Laboratory Results 05/15/17 04:27 05/15/17 04:27 05/15/17 05/16/17 05/17/17 05:59 05:59 05:59 Intake Total 600 200 Output Total 200 400 Balance 400 -200 - Physical Exam Constitutional: obese, uncomfortable, No not in pain Eyes: PERRL Ears, Nose, Mouth, Throat: hearing normal Cardiovascular: regular rate and rhythym Respiratory: no respiratory distress Skin: warm Musculoskeletal: generalized weakness Neurologic: AAOx3 Psychiatric: interacting appropriately, thought process linear, anxious ICD10 Worksheet Patient Problems: Problems Problem Status Onset Degenerative disc disease, lumbar Acute Pseudarthrosis Acute
[2017-05-16] MEDS ORDERED: BUPIVACAINE 0.25% 30 ML SDV ONE ×2 (11:39→12:58)
[2017-05-16] MEDS ORDERED: CHLORHEXIDINE GLUC HIBICLENS 118 ML BTL TP ONE (11:39)
[2017-05-16] MEDS ORDERED: BACITRACIN 50,000 UNITS/10 ML SYR IRR ONE (11:40)
[2017-05-16] MEDS ORDERED: THROMBIN (BOVINE) 20,000 UNIT VIAL TP ONE (11:41)
[2017-05-16] MEDS: HYDROmorphONE/DILAUDID 6 MG/30 ML PCA IV PRN (11:42)
[2017-05-16] MEDS ORDERED: HYDROmorphONE/DILAUDID 1 MG/ML INJ IVP ONE (11:46)
--- NOTE | 2017-05-16 12:06 | ASMTCMCOM ---
CM Note CM Note Notes: Patient going to OR with neurosurgery today to have her L2 screw removed (she is s/p surgery 05/04). She is still c/o excessive pain. Therapies will initiate assessments when she is back from surgery, and ideally she can return to rehab at [facility] when stable. Michelle @ Inpatient Rehab notified. Date Signed: 05/16/2017 12:05 PM Electronically Signed By:Altagracia Oscar RN
[2017-05-16] MEDS ORDERED: GADOBUTROL 10 ML VIAL IVP ONE (12:26)
--- NOTE | 2017-05-16 13:11 | PDANEPAE ---
ANE History of Present Illness revision of TLIF ANE Past Medical History - Cardiovascular History Hx Hypertension: Yes Hx Arrhythmias: No Hx Chest Pain: No Hx Coronary Artery / Peripheral Vascular Disease: No Hx CHF / Valvular Disease: No Hx Palpitations: No - Pulmonary History Hx COPD: No Hx Asthma/Reactive Airway Disease: No Hx Recent Upper Respiratory Infection: No Hx Oxygen in Use at Home: No Hx Sleep Apnea: Yes Sleep Apnea Screening Result - Last Documented: Positive Pulmonary History Comment: quit smoking 04-20-17 Smoked over 50 years-"socially ". possible hypoventilation syndrome - Neurologic History Hx Cerebrovascular Accident: No Hx Seizures: No Hx Dementia: No - Endocrine History Hx Diabetes: Yes Obesity: severe Endocrine History Comment: NIDDM well controlled. - Renal History Hx Renal Disorders: Yes Renal History Comment: sl stress incontinence. - Liver History Hx Hepatic Disorders: No - Neurological & Psychiatric Hx Hx Neurological and Psychiatric Disorders: Yes Neurological / Psychiatric History Comment: low back pain with weakness/pain in legs - Cancer History Hx Cancer: No - Congenital Disorder History Hx Congenital Disorders: No - GI History GERD: no Hx Gastrointestinal Disorders: Yes Gastrointestinal History Comment: on Rx-occ heartburn;occ diverticulosis - Other Health History Other Health History: rash on back/chest due to bleach; Intermittent Swelling of feet/ankles. anemia - Chronic Pain History Chronic Pain: Yes (back/legs) - Surgical History Prior Surgeries: tonsillectomy. bilat knee sx. bilat knee replacements. lap sean. lumbar fusion. shrapnell excised arm. breast cyst excised. hysterectomy. oophorectomy. cataract extraction w/IOL ANE Review of Systems Review of Systems: - Exercise capacity METS (RN): 3 METS ANE Patient History - Allergies Allergies/Adverse Reactions: Bleach (Sodium Hypochlorite) Allergy (Verified 05/03/17 06:44) Rash Penicillins Allergy (Verified 05/03/17 06:44) Rash - Home Medications Home Medications: Cholecalciferol Vit D3 [Vitamin D3 (*)] 1,000 units PO DAILY 04/25/17 [Last Taken 05/13/17] Folic Acid [Folic Acid 1 MG (*)] 1 mg PO DAILY 04/25/17 [Last Taken 05/13/17] Nebivolol HCl [Bystolic] 20 mg PO HS 04/25/17 [Last Taken 05/12/17] Pioglitazone HCl [Actos] 45 mg PO DAILY 04/25/17 [Last Taken 05/13/17] Pramipexole Di-HCl [Mirapex 1 mg (*)] 2 mg PO HS 04/25/17 [Last Taken 05/12/17] Pregabalin [Lyrica 75mg (*)] 150 mg PO HS 04/25/17 [Last Taken 05/12/17] Vitamin B Complex [B Complex] 1 each PO DAILY 04/25/17 [Last Taken 05/13/17] metFORMIN HCL [Glucophage 1000 mg] 1,000 mg PO HS 04/25/17 [Last Taken 05/12/17] Pantoprazole Sodium [Protonix 40mg (*)] 40 mg PO DAILY 05/13/17 [Last Taken 01/20] Polyethylene Glycol 3350 [Miralax 17 gm (*)] 17 gm PO DAILY 05/13/17 [Last Taken 05/13/17] Sennosides/Docusate Sodium [Senokot-S] 2 tab PO BID 05/13/17 [Last Taken 09:00] - NPO status NPO Since - Liquids (Date): 05/16/17 NPO Since - Liquids (Time): 00:00 NPO Since - Solids (Date): 05/15/17 NPO Since - Solids (Time): 19:00 - Smoking Hx Smoking Status: Former smoker ANE Labs/Vital Signs - Labs Result Diagrams: 05/15/17 04:27 05/15/17 04:27 - Vital Signs Blood Pressure: 114/72 Heart Rate: 67 Respiratory Rate: 16 O2 Sat (%): 96 Height: 167.64 cm Weight: 104.326 kg ANE Physical Exam - Airway Neck exam: FROM Mallampati Score: Class 1 Mouth exam: poor dentition (upper bridge) - ASA Status ASA Status: III ANE Anesthesia Plan Anesthesia Plan: general endotracheal anesthesia
[2017-05-16] MEDS ORDERED: MIDAZOLAM 2 MG/2 ML VIAL IVP ONE (13:23)
[2017-05-16] MEDS ORDERED: ceFAZolin 2 GM/SWFI 20 ML SYR IVP ONE (13:37)
[2017-05-16] MEDS ORDERED: CITRATE DEXTROSE SOLN 500 ML BAG ONE (13:41)
[2017-05-16] MEDS ORDERED: PROPOFOL/EMULSION 500 MG/50 ML BOTTLE IV ONE (13:42)
[2017-05-16] MEDS ORDERED: fentaNYL 250 MCG/5 ML INJ ONE (13:42)
[2017-05-16] MEDS ORDERED: KETAMINE 100 MG/10 ML SYR ONE (13:42)
[2017-05-16] MEDS ORDERED: DEXAMETHASONE 4 MG/ML VIAL ONE (13:43)
[2017-05-16] MEDS ORDERED: ROCURONIUM 50 MG/5 ML VIAL ONE (13:43)
[2017-05-16] MEDS ORDERED: LR 1,000 ML IV ONE (13:46)
[2017-05-16] MEDS ORDERED: PHENYLEPHRINE HCL 100 MCG/ML SYR ONE (14:21)
[2017-05-16] MEDS ORDERED: ONDANSETRON 4 MG/2 ML VIAL ONE (15:10)
[2017-05-16] MEDS ORDERED: diphenhydrAMINE 25 MG CAP PO PRN (15:40)
[2017-05-16] MEDS ORDERED: NS W/ 20 KCl/L 1,000 ML IV SCH (15:45)
--- NOTE | 2017-05-16 15:46 | SOAPPROG ---
TONYA Progress Note Assessment/Plan: Assessment: 76 yo F sp removal of left L2 pedicle, previous T10-L5 fusion Plan: stable to 3N x-rays in am lovenox starts tomorrow please call with neuro changes 05/16/17 15:45 Subjective: + back pain, no leg pain, no weakness. Objective: Vital Signs Temp Pulse Resp BP Pulse Ox 36.9 C 72 18 123/60 H 2 L 05/16/17 13:37 05/16/17 13:37 05/16/17 13:37 05/16/17 13:37 05/16/17 13:37 Laboratory Results 05/15/17 04:27 05/15/17 04:27 05/15/17 05/16/17 05/17/17 05:59 05:59 05:59 Intake Total 600 200 Output Total 200 400 Balance 400 -200 somnolent PERRL, no facial droop JERRY x 4 + light touch ICD10 Worksheet Patient Problems: Problems Problem Status Onset Degenerative disc disease, lumbar Acute Pseudarthrosis Acute
[2017-05-16] MEDS ORDERED: fentaNYL 100 MCG/2 ML INJ ONE ×2 (16:02→17:23)
[2017-05-16] MEDS: fentaNYL 100 MCG/2 ML INJ IVP PRN ×3 (16:04→17:24)
--- NOTE | 2017-05-16 16:10 | POSTANESTH ---
Post Anesthetic Evaluation Cardiovascular Status: Similar to Pre-Op Cond Respiratory Status: Similar to Pre-op Cond. Level of Consciousness/Mental Status: Can Participate in Eval Pain Control: Adequate, Prn Tx Ordered Nausea/Vomiting Control: Adequate, Prn Tx Ordered Complications Possibly Related to Anesthesia: None Noted
[2017-05-16] MEDS ORDERED: ACETAMINOPHEN 500 MG TAB ONE (16:51)
[2017-05-16] MEDS ORDERED: METHOCARBAMOL 750 MG TAB ONE (17:14)
[2017-05-16] MEDS: METHOCARBAMOL 750 MG TAB PO PRN (17:15)
[2017-05-16] MEDS: FAMOTIDINE 20 MG TAB PO SCH (21:25)
[2017-05-16] MEDS: METHOCARBAMOL 500 MG TAB PO SCH (21:25)
[2017-05-16] MEDS: NEBIVOLOL HCL 5 MG TAB PO SCH (21:26)
[2017-05-16] MEDS: PRAMIPEXOLE 1 MG TAB PO SCH (21:27)
[2017-05-16] MEDS: PREGABALIN 75 MG CAP PO SCH (21:27)
[2017-05-16] MEDS: ceFAZolin 2 GM/DEXTROSE 100 ML IV SCH (22:03)
[2017-05-17] MEDS: ceFAZolin 2 GM/DEXTROSE 100 ML IV SCH (06:17)
[2017-05-17 06:18] LABS: % IMMATURE GRANULYOCYTES 0.5 % (0.0-1.1); ABSOLUTE IMMATURE GRANULOCYTES 0.05 10^3/uL (0.00-0.10); ADD DIFF? NO; ADD MORPH? NO; ADD SCAN? NO; ATYPICAL LYMPHOCYTE FLAG 10 (0-99); FRAGMENT RBC FLAG 0 (0-99); HEMATOCRIT 29.3 % (38.0-47.0); HEMOGLOBIN 9.5 g/dL (12.6-16.3); LEFT SHIFT FLG 0 (0-99); LIPEMIA HEMOLYSIS FLAG 80 (0-99); MEAN CELL HEMOGLOBIN 31.9 pg (27.9-34.1); MEAN CELL HEMOGLOBIN CONCENTR. 32.4 g/dL (32.4-36.7); MEAN CELL VOLUME 98.3 fL (81.5-99.8); MEAN PLATELET VOLUME 9.9 fL (8.7-11.7); PLATELET CLUMPS FLAG 0 (0-99); PLATELET COUNT 337 10^3/uL (150-400); RED BLOOD CELL COUNT 2.98 10^6/uL (4.18-5.33); RED CELL DISTRIBUTION WIDTH 14.6 % (11.5-15.2)
[2017-05-17 06:21] LABS: ALANINE AMINOTRANSFERASE 32 IU/L (9-52); ALBUMIN 2.8 g/dL (3.5-5.0); ALKALINE PHOSPHATASE 108 IU/L (38-126); ANION GAP 7 mEq/L (8-16); ASPARTATE AMINOTRANSFERASE 28 IU/L (14-46); BILIRUBIN,TOTAL 0.3 mg/dL (0.1-1.4); CALCIUM 8.4 mg/dL (8.5-10.4); CARBON DIOXIDE 34 mEq/l (22-31); CHLORIDE 92 mEq/L (97-110); CREATININE 0.7 mg/dL (0.6-1.0); GLOMERULAR FILTRATION RATE > 60; GLUCOSE 113 mg/dL (70-100); POTASSIUM 4.7 mEq/L (3.5-5.2); SODIUM 133 mEq/L (134-144); TOTAL PROTEIN 5.3 g/dL (6.3-8.2)
--- NOTE | 2017-05-17 07:05 | GOP ---
[f rep st] OPERATIVE REPORT DATE OF OPERATION: 05/16/2017 SURGEON: Jamil Han MD ADVERTISING MANAGER: BRENTON Wilkins. ANESTHESIA: General endotracheal. PREOPERATIVE DIAGNOSIS: Malposition of the left L2 pedicle screw. POSTOPERATIVE DIAGNOSIS: Malposition of the left L2 pedicle screw. PROCEDURE PERFORMED: Removal of L2 pedicle screw. Removal and replacement of hardware. Use of intr aoperative fluoroscopy. FINDINGS: ESTIMATED BLOOD LOSS: Trace. INDICATIONS: The patient is a 76-year-old, morbidly obese woman who recently underwent an extensive multilevel decompression and stabilization procedure for severe degenerative scoliosis with critical spinal stenosis. She had done reasonably well, but while in rehab she developed left-sided hip pain whenever she got out of bed. Postoperative CT demonstrated a malpositioned medial L2 screw that look ed good on the intraoperative O-arm neuro navigational films and still does not look all that bad, bu t is slightly medial and it is consistent with her symptoms. There was not much pedicle there to beg in with, and this was a very difficult screw to place. After a detailed discussion with the patient and her daughter, I felt that it was in her best interest to take this out and try to get her back on the road to recovery. DESCRIPTION OF PROCEDURE: After informed consent was obtained, the patient was taken to the operatin g room, placed in a prone position on the Santo table. The thoracolumbosacral areas were prepped a nd draped in a sterile fashion. Prior incision was carefully opened and carried down to the fascial layer, which was also incised. The prior hardware was identified and multiple routine cultures were taken just in case. The wound was then copiously irrigated with antibiotic irrigation and meticulous hemostasis was achieved. The left-sided germán was removed along with the left L2 pedicle screw. The germán was replaced and secured to the specified torque by the company and the wound was again copiously irrigated. The bone graft was all left in place. A drain was placed. The fascia and subcutaneous tissues were closed in a layered fashion using interrupted Vicryl sutures, followed by Steri-Strips o n the skin. COMPLICATIONS: None. DISPOSITION: The patient was extubated and transferred to the recovery room in stable condition. /[id number]/MODL
--- NOTE | 2017-05-17 07:21 | SOAPPROG ---
SOAP Progress Note Assessment/Plan: Assessment: POD #1 s/p revision of left L2 screw. She feels her left leg pain is improved Plan: Lovenox starts today Needs xrays today PT/OT TLSO when OOB Continue RHODA to suction Pain control Rehab planning Subjective: out of bed in chair. Feeling good this AM. Daughter reports improved transitioning and patient notes improvement of left leg pain. Denies new numbness or tingling. Objective: Vital Signs Temp Pulse Resp BP Pulse Ox 36.9 C 64 17 147/67 H 99 05/16/17 23:28 05/16/17 23:28 05/16/17 23:28 05/16/17 23:28 05/16/17 23:28 Microbiology 05/16/17 15:13 Gram Stain - Final Back - Eswab 05/16/17 15:13 Gram Stain - Final Back - Aspirate 05/16/17 15:13 Mycobacterial Smear (EVELYN) - Final Back - Eswab Mycobacterial Culture - Final Laboratory Results 05/17/17 04:44 05/17/17 04:44 05/16/17 05/17/17 05/18/17 05:59 05:59 05:59 Intake Total 200 1220 Output Total 400 615 30 Balance -200 605 -30 Neuro: NUGENT, Sens +LT follows commands RHODA: 95ml ICD10 Worksheet Patient Problems: Problems Problem Status Onset Degenerative disc disease, lumbar Acute Pseudarthrosis Acute
[2017-05-17] MEDS: POLYETHYLENE GLYCOL 3350 17 GM PKT PO SCH (08:31)
[2017-05-17] MEDS: VITAMIN B COMPLEX 1 EA CAP/TAB PO SCH (08:31)
[2017-05-17] MEDS: ENOXAPARIN 40 MG/0.4 ML SYR SC SCH (08:31)
[2017-05-17] MEDS: PANTOPRAZOLE SODIUM 40 MG TAB PO SCH (08:32)
[2017-05-17] MEDS: FAMOTIDINE 20 MG TAB PO SCH ×2 (08:32→21:45)
[2017-05-17] MEDS: CHOLECALCIFEROL VIT D3 1,000 UNITS TAB PO SCH (08:32)
[2017-05-17] MEDS: PIOGLITAZONE HCL 15 MG TAB PO SCH (08:32)
[2017-05-17] MEDS: METHOCARBAMOL 750 MG TAB PO PRN (08:32)
[2017-05-17] MEDS: POTASSIUM CL 20 MEQ TAB PO SCH (08:32)
[2017-05-17] MEDS: FOLIC ACID 1 MG TAB PO SCH (08:33)
[2017-05-17] MEDS: SENNOSIDES/DOCUSATE SODIUM TAB PO SCH ×3 (08:33→21:47)
[2017-05-17] MEDS: morphINE SR 15 MG TAB PO SCH ×2 (08:33→21:46)
[2017-05-17] MEDS: oxyCODONE IR 5 MG TAB PO PRN ×5 (08:33→23:26)
[2017-05-17] MEDS: DIAZEPAM 5 MG TAB PO PRN ×2 (13:28→23:29)
--- NOTE | 2017-05-17 14:31 | HOSPPROG ---
Hospitalist Progress Note Assessment/Plan: Patient is a 76-year-old female with history of hypertension, diabetes and obesity. She had recent spine surgery. She came back the hospital with ongoing back pain worse on the left side left posterior leg pain. CT of the abdomen showed that her L2 pedicle screw was abnormal. * back pain -status post T10-L5 fusion on May 04 -POD # 1 revision of L2 screw (pain is much better but is c/o of the tape) * anemia in the postop setting -stable * diabetes mellitus -place metformin on hold * hypertension -bp stable * sleep apnea -continue CPAP *mild hyponatremia -recheck in a.m. * morbid obesity with a BMI of 37 *dvt prophylaxis: LMWH *Plan: will discuss w neurosurgery, but hopefully can go home or rehab soon. Subjective: Poly is feeling better today, but has discomfort from the tape. Objective: Vital Signs Temp Pulse Resp BP Pulse Ox 36.9 C 66 16 132/60 H 93 05/17/17 07:50 05/17/17 12:00 05/17/17 12:00 05/17/17 12:00 05/17/17 12:00 Microbiology 05/16/17 15:13 Gram Stain - Final Back - Eswab 05/16/17 15:13 Gram Stain - Final Back - Aspirate 05/16/17 15:13 Mycobacterial Smear (EVELYN) - Final Back - Eswab Mycobacterial Culture - Final Laboratory Results 05/17/17 04:44 05/17/17 04:44 05/16/17 05/17/17 05/18/17 05:59 05:59 05:59 Intake Total 200 1220 Output Total 400 615 80 Balance -200 605 -80 - Physical Exam Constitutional: obese, uncomfortable Eyes: PERRL Ears, Nose, Mouth, Throat: hearing normal Cardiovascular: regular rate and rhythym Respiratory: no respiratory distress, reduced air movement Gastrointestinal: normoactive bowel sounds Skin: warm Musculoskeletal: generalized weakness Neurologic: AAOx3 Psychiatric: interacting appropriately ICD10 Worksheet Patient Problems: Problems Problem Status Onset Degenerative disc disease, lumbar Acute Pseudarthrosis Acute
[2017-05-17] MEDS ORDERED: CEPACOL LOZENGE PO PRN (16:26)
[2017-05-17] MEDS: METHOCARBAMOL 500 MG TAB PO SCH (21:46)
[2017-05-17] MEDS: NEBIVOLOL HCL 5 MG TAB PO SCH (21:46)
[2017-05-17] MEDS: PRAMIPEXOLE 1 MG TAB PO SCH (21:47)
[2017-05-17] MEDS: PREGABALIN 75 MG CAP PO SCH (21:47)
[2017-05-18] MEDS: oxyCODONE IR 5 MG TAB PO PRN ×5 (06:30→21:09)
[2017-05-18] MEDS: CYCLOBENZAPRINE 10 MG TAB PO PRN ×2 (06:36→16:19)
--- NOTE | 2017-05-18 08:06 | SOAPPROG ---
SOAP Progress Note Assessment/Plan: Assessment: POD #2 s/p revision of left L2 screw. She feels her left leg pain is improved wound cultures show E. Faecalis and S. Epi. Plan: ID Consulted and I have spoken with Dr. Seo. He will see pt and recommends starting Daptomycin 6mg/kg Q24 now. I Will order PICC today Needs xrays today PT/OT TLSO when OOB Continue RHODA to suction Pain control Rehab planning Discussed with Dr. Draper Subjective: lying in bed asleep. wakes easily and states pain is well controlled. Feels like left leg pain is better. Objective: Vital Signs Temp Pulse Resp BP Pulse Ox 36.8 C 68 16 131/58 H 96 05/17/17 23:13 05/17/17 23:13 05/17/17 23:13 05/17/17 23:13 05/17/17 23:13 Microbiology 05/16/17 15:13 Gram Stain - Final Back - Aspirate 05/16/17 15:13 Mycobacterial Smear (EVELYN) - Final Back - Aspirate 05/16/17 15:13 Gram Stain - Final Back - Eswab Laboratory Results 05/17/17 04:44 05/17/17 04:44 05/17/17 05/18/17 05/19/17 05:59 05:59 05:59 Intake Total 1220 Output Total 615 140 Balance 605 -140 Neuro: NUGENT, sens +LT Dressing: CDI RHODA: 95ml Wound Cultures = S. epi and E. Faecalis ICD10 Worksheet Patient Problems: Problems Problem Status Onset Degenerative disc disease, lumbar Acute Pseudarthrosis Acute
--- NOTE | 2017-05-18 09:27 | HOSPPROG ---
Hospitalist Progress Note Assessment/Plan: Patient is a 76-year-old female with history of hypertension, diabetes and obesity. She had recent spine surgery. She came back the hospital with ongoing back pain worse on the left side left posterior leg pain. CT of the abdomen showed that her L2 pedicle screw was abnormal. * back pain -status post T10-L5 fusion on May 04 -POD # 2 revision of L2 screw (pain is much better but is c/o of the tape) -cultures growing enterococcus and staph epi/to be started on daptomycin/ ID to see -patient on long acting medications and is very sedate; will dc long acting -will order Tylenol to be scheduled * anemia in the postop setting -stable * diabetes mellitus -place metformin on hold * hypertension -bp stable * sleep apnea -continue CPAP *mild hyponatremia -recheck in a.m. * morbid obesity with a BMI of 37 *dvt prophylaxis: LMWH *Plan: ID team to see, DC long acting morphine, scheduled Tylenol Subjective: Poly says she is having ongoing pain overall. Objective: Vital Signs Temp Pulse Resp BP Pulse Ox 36.2 C 60 16 117/50 L 99 05/18/17 08:00 05/18/17 08:00 05/18/17 08:00 05/18/17 08:00 05/18/17 08:00 Microbiology 05/16/17 15:13 Gram Stain - Final Back - Aspirate 05/16/17 15:13 Mycobacterial Smear (EVELYN) - Final Back - Aspirate 05/16/17 15:13 Gram Stain - Final Back - Eswab Laboratory Results 05/17/17 04:44 05/17/17 04:44 05/17/17 05/18/17 05/19/17 05:59 05:59 05:59 Intake Total 1220 Output Total 615 140 Balance 605 -140 - Physical Exam Constitutional: chronically ill appearing, obese, uncomfortable Eyes: PERRL Ears, Nose, Mouth, Throat: hearing normal Cardiovascular: regular rate and rhythym Respiratory: no respiratory distress, reduced air movement Skin: warm, other (ecchymosis noted on right forearm area) Musculoskeletal: generalized weakness Neurologic: AAOx3, other (very sedate, nods off when talking with her) ICD10 Worksheet Patient Problems: Problems Problem Status Onset Degenerative disc disease, lumbar Acute Pseudarthrosis Acute
[2017-05-18] MEDS: ENOXAPARIN 40 MG/0.4 ML SYR SC SCH (09:55)
[2017-05-18] MEDS: VITAMIN B COMPLEX 1 EA CAP/TAB PO SCH (09:56)
[2017-05-18] MEDS: CHOLECALCIFEROL VIT D3 1,000 UNITS TAB PO SCH (09:56)
[2017-05-18] MEDS: FOLIC ACID 1 MG TAB PO SCH (09:56)
[2017-05-18] MEDS: SENNOSIDES/DOCUSATE SODIUM TAB PO SCH ×2 (09:56→21:09)
[2017-05-18] MEDS: PANTOPRAZOLE SODIUM 40 MG TAB PO SCH (09:56)
[2017-05-18] MEDS: FAMOTIDINE 20 MG TAB PO SCH ×2 (09:56→21:08)
[2017-05-18] MEDS: morphINE SR 15 MG TAB PO SCH (10:23)
[2017-05-18] MEDS: POLYETHYLENE GLYCOL 3350 17 GM PKT PO SCH (10:23)
[2017-05-18] MEDS: PIOGLITAZONE HCL 15 MG TAB PO SCH (10:59)
[2017-05-18] MEDS: NS IV SCH (10:59)
[2017-05-18] MEDS: DAPTOMYCIN IV SCH (10:59)
--- NOTE | 2017-05-18 11:06 | ASMTCMCOM ---
CM Note CM Note Notes: Patient is POD #2 L2 screw revision. X-rays pending. An ID consult has also been ordered d/t + blood cultures. Patient will work with therapies today; [facility] inpatient rehab is following. Anticipate discharge back to inpatient rehab when medically stable. CM will follow. Date Signed: 05/18/2017 11:05 AM Electronically Signed By:Altagracia Oscar RN
--- NOTE | 2017-05-18 13:32 | GCON ---
[f rep st] CONSULTATION INPATIENT INFECTIOUS DISEASE CONSULTATION REFERRING PHYSICIAN: Jamil Han MD REASON FOR REFERRAL: Postoperative infection. HISTORY OF PRESENT ILLNESS: Patient is a 76-year-old female who presented to [facility] on 05/13/2017 complaining of left low back pain and posterior left leg pain. The patient had under gone a T10 to L5 fusion with lumbar interbody fusions on 05/03/2017. Patient went back to the operat ing room on 05/16/2017 due to her presenting complaints. The preoperative diagnosis was a malpositio n of the left L2 pedicle screw. The screw was removed and replaced. During surgery, a fluid area wa s discovered, and fluid samples were taken. The samples from surgery are growing Staphylococcus epid ermidis and Enterococcus faecalis. No sensitivities are available at present. The patient was start ed on IV cefazolin around surgery. She was changed to daptomycin earlier today. Currently, she has no complaints. PAST MEDICAL HISTORY: 1. Hypertension. 2. Gastroesophageal reflux disease. 3. Diabetes. 4. Chronic back pain. 5. Obstructive sleep apnea. 6. Morbid obesity. PAST SURGICAL HISTORY: Thoracolumbar spinal fusion. ANTIBIOTICS: Daptomycin. ALLERGIES: Patient is allergic to penicillin. SOCIAL HISTORY: No significant tobacco, alcohol or drug use noted. FAMILY HISTORY: Reviewed, but noncontributory. REVIEW OF SYSTEMS: Other than that detailed above in History of Present Illness, a comprehensive 10- system review is negative. PHYSICAL EXAMINATION: VITAL SIGNS: Temperature maximum is 37.0, temperature current 36.2. Heart ra te is 60. Respiratory rate is 16. Blood pressure is 117/50. GENERAL: The patient is a well-formed , well-nourished, elderly female, in no acute distress. She is not toxic in appearance. She is aler t and oriented x3. She has a pleasant demeanor. HEENT: Normocephalic for age. Atraumatic. No scl eral icterus. No oral lesion or drainage from the nares. Eyes, lids and conjunctivae are within nor mal limits. Pupils are equal and round bilaterally. NECK: Supple. No meningismus. LUNGS: Clear to auscultation bilaterally with good effort. HEART: Regular rate and rhythm. No significant perip heral edema. SKIN: Warm and dry to the touch. No rash noted. Patient has operative incisions on t he lumbar and lower thoracic area, which are dressed and covered. No significant erythema in the dis terri surrounding tissues. MUSCULOSKELETAL: No other muscle belly tenderness is noted. No joint line effusion or arthritis seen. NEURO: Cranial nerves 2-12 seem to be intact. Peripheral sensation se ems intact in extremities. LABORATORY DATA: Patient has a CBC dated 05/17/2017, shows a white blood cell count of 10.43, hemogl obin of 9.5, hematocrit 29.3, and a platelet count of 337. Differential is left-shifted with 82% seg mented neutrophils. Serum chemistries from 05/17/2017 show sodium 133, potassium 4.7, chloride of 92 , bicarbonate of 34, BUN of 9, and creatinine of 0.7. AST is 28. ALT is 32. MICROBIOLOGIC DATA: Patient has back aspirates dated 05/16/2017, which are growing both Enterococcus faecalis and Staphylococcus epidermidis. ASSESSMENT: Postoperative infection of the thoracolumbar fusion area, which is associated with hardw are. Some of this hardware was exchanged during the surgery this visit, but the likelihood that ther e is continued hardware that remains that was interfacing with this infected collection is reasonably high. Will discuss specifics with Dr. Han. At this point, daptomycin is a reasonable cho ice given Enterococcus and Staphylococcus epidermidis. The patient is a mild diabetic, who is on met formin. I do not wish to try nephrotoxic agents, such as vancomycin for a long period of time given that. We will continue daptomycin 6 mg/kg IV q.24 hours and monitor creatine kinase. Follow her cou rse in the hospital and plan for an 8-week total duration. PLAN: 1. Start daptomycin 6 mg/kg IV q.24 hours. 2. Baseline CPK levels. 3. Follow clinical course. /[id number]/MODL
[2017-05-18] MEDS: ACETAMINOPHEN 500 MG TAB PO SCH ×2 (14:16→21:09)
[2017-05-18] MEDS: METHOCARBAMOL 500 MG TAB PO SCH (21:08)
[2017-05-18] MEDS: PRAMIPEXOLE 1 MG TAB PO SCH (21:09)
[2017-05-18] MEDS: PREGABALIN 75 MG CAP PO SCH (21:09)
[2017-05-18] MEDS: NEBIVOLOL HCL 5 MG TAB PO SCH (21:09)
[2017-05-18] MEDS: DIAZEPAM 5 MG TAB PO PRN (22:53)
[2017-05-19 04:54] LABS: % IMMATURE GRANULYOCYTES 0.5 % (0.0-1.1); ABSOLUTE IMMATURE GRANULOCYTES 0.06 10^3/uL (0.00-0.10); ADD DIFF? NO; ADD MORPH? NO; ADD SCAN? NO; ATYPICAL LYMPHOCYTE FLAG 10 (0-99); FRAGMENT RBC FLAG 0 (0-99); HEMATOCRIT 28.1 % (38.0-47.0); HEMOGLOBIN 9.3 g/dL (12.6-16.3); LEFT SHIFT FLG 0 (0-99); LIPEMIA HEMOLYSIS FLAG 80 (0-99); MEAN CELL HEMOGLOBIN 32.2 pg (27.9-34.1); MEAN CELL HEMOGLOBIN CONCENTR. 33.1 g/dL (32.4-36.7); MEAN CELL VOLUME 97.2 fL (81.5-99.8); MEAN PLATELET VOLUME 9.3 fL (8.7-11.7); PLATELET CLUMPS FLAG 30 (0-99); PLATELET COUNT 341 10^3/uL (150-400); RED BLOOD CELL COUNT 2.89 10^6/uL (4.18-5.33); RED CELL DISTRIBUTION WIDTH 14.8 % (11.5-15.2)
[2017-05-19] MEDS: METHOCARBAMOL 750 MG TAB PO PRN (05:01)
[2017-05-19] MEDS: ACETAMINOPHEN 500 MG TAB PO SCH ×3 (05:01→22:32)
[2017-05-19] MEDS: oxyCODONE IR 5 MG TAB PO PRN ×4 (05:02→20:01)
[2017-05-19 05:11] LABS: ALANINE AMINOTRANSFERASE 26 IU/L (9-52); ALBUMIN 2.5 g/dL (3.5-5.0); ALKALINE PHOSPHATASE 112 IU/L (38-126); ANION GAP 6 mEq/L (8-16); ASPARTATE AMINOTRANSFERASE 15 IU/L (14-46); BILIRUBIN,TOTAL 0.3 mg/dL (0.1-1.4); CALCIUM 8.5 mg/dL (8.5-10.4); CARBON DIOXIDE 33 mEq/l (22-31); CHLORIDE 93 mEq/L (97-110); CREATININE 0.6 mg/dL (0.6-1.0); GLOMERULAR FILTRATION RATE > 60; GLUCOSE 94 mg/dL (70-100); POTASSIUM 4.1 mEq/L (3.5-5.2); SODIUM 132 mEq/L (134-144); TOTAL PROTEIN 5.2 g/dL (6.3-8.2)
[2017-05-19] MEDS: POLYETHYLENE GLYCOL 3350 17 GM PKT PO SCH (08:47)
[2017-05-19] MEDS: CHOLECALCIFEROL VIT D3 1,000 UNITS TAB PO SCH (08:47)
[2017-05-19] MEDS: FOLIC ACID 1 MG TAB PO SCH (08:47)
[2017-05-19] MEDS: FAMOTIDINE 20 MG TAB PO SCH ×2 (08:47→20:02)
[2017-05-19] MEDS: SENNOSIDES/DOCUSATE SODIUM TAB PO SCH ×2 (08:47→20:02)
[2017-05-19] MEDS: PANTOPRAZOLE SODIUM 40 MG TAB PO SCH (08:47)
[2017-05-19] MEDS: PIOGLITAZONE HCL 15 MG TAB PO SCH (08:48)
[2017-05-19] MEDS: VITAMIN B COMPLEX 1 EA CAP/TAB PO SCH (08:48)
--- NOTE | 2017-05-19 09:04 | SOAPPROG ---
SOAP Progress Note Assessment/Plan: Assessment: 76 yo F sp removal of left L2 pedicle, previous T10-L5 fusion with staph epi and enterococcus wound infection Plan: stable, leg pain better after screw removal staph epi and enterococcus from wound infection, on daptomycin per ID, appreciate ID help scd/aster/lovenox for dvt prophylaxis PT/OT ok to discharge to rehab when cleared by ID/IM HTN/DM/anemia stable, appreciate hospitalists help with medical issues please call with neuro changes patient seen by Dr Patel 05/16/17 15:45 05/19/17 09:01 05/19/17 09:04 Subjective: back pain improving, no leg pain, no weakness. Objective: Vital Signs Temp Pulse Resp BP Pulse Ox 36.8 C 60 12 135/64 H 97 05/19/17 08:00 05/19/17 08:00 05/19/17 08:00 05/19/17 08:00 05/19/17 08:00 Microbiology 05/16/17 15:13 Gram Stain - Final Back - Eswab 05/16/17 15:13 Mycobacterial Smear (EVELYN) - Final Back - Eswab Mycobacterial Culture - Final 05/16/17 15:13 Gram Stain - Final Back - Aspirate 05/16/17 15:13 Mycobacterial Smear (EVELYN) - Final Back - Aspirate Laboratory Results 05/19/17 04:35 05/19/17 04:35 05/18/17 05/19/17 05/20/17 05:59 05:59 05:59 Intake Total 200 Output Total 140 30 650 Balance -140 170 -650 AAOx4, +FC PERRL, EOMI, no facial droop 5/5 + light touch C/D/I ICD10 Worksheet Patient Problems: Problems Problem Status Onset Degenerative disc disease, lumbar Acute Pseudarthrosis Acute
[2017-05-19] MEDS: DAPTOMYCIN IV SCH (10:55)
[2017-05-19] MEDS: NS IV SCH (10:55)
--- NOTE | 2017-05-19 12:57 | HOSPPROG ---
Hospitalist Progress Note Assessment/Plan: Patient is a 76-year-old female with history of hypertension, diabetes and obesity. She had recent spine surgery. She came back the hospital with ongoing back pain worse on the left side left posterior leg pain. CT of the abdomen showed that her L2 pedicle screw was abnormal. * back pain -status post T10-L5 fusion on May 04 -POD # 3 revision of L2 screw (pain is much better but is c/o of the tape) -cultures growing enterococcus and staph epi/daptomycin/ ID seeing -Tylenol scheduled, dc long acting pain medications due to sleepiness (she is doing well with current regimen controlling her pain) * anemia in the postop setting -stable * diabetes mellitus -place metformin on hold * hypertension -bp stable * sleep apnea -continue CPAP *mild hyponatremia -recheck in a.m. * morbid obesity with a BMI of 37 *dvt prophylaxis: LMWH *Plan: hopefully, can return to IP rehab soon. Subjective: Poly is in good spirits/ has no complaints. Objective: Vital Signs Temp Pulse Resp BP Pulse Ox 36.8 C 60 12 135/64 H 97 05/19/17 08:00 05/19/17 08:00 05/19/17 08:00 05/19/17 08:00 05/19/17 08:00 Microbiology 05/16/17 15:13 Gram Stain - Final Back - Eswab 05/16/17 15:13 Gram Stain - Final Back - Aspirate 05/16/17 15:13 Mycobacterial Smear (EVELYN) - Final Back - Eswab Mycobacterial Culture - Final 05/16/17 15:13 Mycobacterial Smear (EVELYN) - Final Back - Aspirate Laboratory Results 05/19/17 04:35 05/19/17 04:35 05/18/17 05/19/17 05/20/17 05:59 05:59 05:59 Intake Total 200 Output Total 140 30 680 Balance -140 170 -680 - Physical Exam Constitutional: no apparent distress, appears nourished, not in pain, chronically ill appearing, obese Eyes: PERRL Ears, Nose, Mouth, Throat: hearing normal Cardiovascular: regular rate and rhythym Respiratory: no respiratory distress Gastrointestinal: normoactive bowel sounds Skin: other (right forearm area w ecchymosis) Musculoskeletal: generalized weakness Neurologic: AAOx3 Psychiatric: interacting appropriately, not encephalopathic ICD10 Worksheet Patient Problems: Problems Problem Status Onset Degenerative disc disease, lumbar Acute Pseudarthrosis Acute
--- NOTE | 2017-05-19 14:11 | ASMTCMCOM ---
CM Note CM Note Notes: Chart reviewed. Pt also followed by ID for fluid collection at surgical site. Spoke with Michelle at inpt rehab. Plan is for pt to returm to inpatient rehab when medically stable. CM to follow. Date Signed: 05/19/2017 02:10 PM Electronically Signed By:Mary Funes RN
[2017-05-19] MEDS ORDERED: ALTEPLASE 2 MG VIAL IVP PRN (14:53)
--- NOTE | 2017-05-19 14:57 | PCMIDPN ---
Assessment/Plan: # Wound infection s/p previous T10-L5 fusion s/p I&D and removal of left L2 pedicle. Cx staph epi and enterococcus. Pain improved today. WBC slightly elevated --daptomycin for coverage of CoNS and enterococcus. Concern for potential renal toxicity w co-administration of metformin with vancomycin --awaiting sensi --place PICC line meds daptomycin 625mg IV daily #2 Subjective: patient has walked 4 times today and is sore back pain is better patient frustrated about being in the hospital Objective: Vital Signs Temp Pulse Resp BP Pulse Ox 36.8 C 60 12 135/64 H 97 05/19/17 08:00 05/19/17 08:00 05/19/17 08:00 05/19/17 08:00 05/19/17 08:00 Microbiology 05/16/17 15:13 Gram Stain - Final Back - Eswab 05/16/17 15:13 Gram Stain - Final Back - Aspirate 05/16/17 15:13 Mycobacterial Smear (EVELYN) - Final Back - Eswab Mycobacterial Culture - Final Laboratory Results 05/19/17 04:35 05/19/17 04:35 05/18/17 05/19/17 05/20/17 05:59 05:59 05:59 Intake Total 200 Output Total 140 30 680 Balance -140 170 -680 - Physical Exam General Appearance: alert, no apparent distress EENT: No scleral icterus Respiratory: No accessory muscle use Back: other (RHODA drain with serosang fluid) Skin: warm/dry, No diaphoresis, No jaundice, No rash Neuro/Psych: alert, oriented x 3, depressed affect - Time Spent With Patient Time Spent with Patient: greater than 25 minutes Time Spent with Patient: Greater than 25 minutes spent on this patients care, greater than 50% of time spent counseling, educating, and coordinating care regarding the above mentioned plan. ICD10 Worksheet Patient Problems: Problems Problem Status Onset Degenerative disc disease, lumbar Acute Pseudarthrosis Acute
[2017-05-19] MEDS: ENOXAPARIN 40 MG/0.4 ML SYR SC SCH (15:38)
[2017-05-19 17:16] VITALS: RESP 16
[2017-05-19] MEDS: PRAMIPEXOLE 1 MG TAB PO SCH (20:02)
[2017-05-19] MEDS: PREGABALIN 75 MG CAP PO SCH (20:02)
[2017-05-19] MEDS: NEBIVOLOL HCL 5 MG TAB PO SCH (20:02)
[2017-05-19] MEDS: METHOCARBAMOL 500 MG TAB PO SCH (20:02)
[2017-05-20] MEDS: METHOCARBAMOL 750 MG TAB PO PRN ×2 (02:09→14:45)
[2017-05-20] MEDS: oxyCODONE IR 5 MG TAB PO PRN ×5 (02:09→21:45)
[2017-05-20] MEDS: DIAZEPAM 5 MG TAB PO PRN (03:43)
[2017-05-20 04:00] LABS: % IMMATURE GRANULYOCYTES 0.6 % (0.0-1.1); ABSOLUTE IMMATURE GRANULOCYTES 0.06 10^3/uL (0.00-0.10); ADD DIFF? NO; ADD MORPH? NO; ADD SCAN? NO; ATYPICAL LYMPHOCYTE FLAG 10 (0-99); FRAGMENT RBC FLAG 0 (0-99); HEMATOCRIT 28.2 % (38.0-47.0); HEMOGLOBIN 9.5 g/dL (12.6-16.3); LEFT SHIFT FLG 0 (0-99); LIPEMIA HEMOLYSIS FLAG 80 (0-99); MEAN CELL HEMOGLOBIN 32.3 pg (27.9-34.1); MEAN CELL HEMOGLOBIN CONCENTR. 33.7 g/dL (32.4-36.7); MEAN CELL VOLUME 95.9 fL (81.5-99.8); PLATELET CLUMPS FLAG 0 (0-99); PLATELET COUNT 349 10^3/uL (150-400); RED BLOOD CELL COUNT 2.94 10^6/uL (4.18-5.33); RED CELL DISTRIBUTION WIDTH 14.7 % (11.5-15.2)
[2017-05-20 04:23] LABS: ANION GAP 5 mEq/L (8-16); CALCIUM 8.6 mg/dL (8.5-10.4); CARBON DIOXIDE 33 mEq/l (22-31); CHLORIDE 94 mEq/L (97-110); CREATININE 0.6 mg/dL (0.6-1.0); GLOMERULAR FILTRATION RATE > 60; GLUCOSE 111 mg/dL (70-100); SODIUM 132 mEq/L (134-144)
[2017-05-20] MEDS: ACETAMINOPHEN 500 MG TAB PO SCH ×3 (05:31→21:42)
--- NOTE | 2017-05-20 07:56 | SOAPPROG ---
SOAP Progress Note Assessment/Plan: Assessment: 76 yo F POD #4 removal of left L2 pedicle, previous T10-L5 fusion with staph epi and enterococcus wound infection Plan: stable, leg pain better after screw removal :) staph epi and enterococcus from wound infection, on daptomycin per ID, appreciate ID help, PICC placed 05/19 scd/aster/lovenox for dvt prophylaxis PT/OT ok to discharge to rehab when cleared by ID/IM HTN/DM/anemia stable, appreciate hospitalists help with medical issues please call with neuro changes 05/16/17 15:45 05/19/17 09:01 05/19/17 09:04 05/20/17 07:55 Subjective: back pain improving, no leg pain, no weakness. Objective: Vital Signs Temp Pulse Resp BP Pulse Ox 36.9 C 62 16 128/59 H 96 05/20/17 07:41 05/20/17 07:41 05/20/17 07:41 05/20/17 07:41 05/20/17 07:41 Microbiology 05/16/17 15:13 Gram Stain - Final Back - Aspirate 05/16/17 15:13 Gram Stain - Final Back - Eswab Laboratory Results 05/20/17 03:45 05/20/17 03:45 05/19/17 05/20/17 05/21/17 05:59 05:59 05:59 Intake Total 200 400 Output Total 30 740 Balance 170 -340 AAOX4, +FC PERRL, EOMI, no facial droop 5/5 + light touch C/D/I ICD10 Worksheet Patient Problems: Problems Problem Status Onset Degenerative disc disease, lumbar Acute Pseudarthrosis Acute
[2017-05-20] MEDS: CHOLECALCIFEROL VIT D3 1,000 UNITS TAB PO SCH (08:17)
[2017-05-20] MEDS: FAMOTIDINE 20 MG TAB PO SCH ×2 (08:17→21:42)
[2017-05-20] MEDS: PIOGLITAZONE HCL 15 MG TAB PO SCH (08:17)
[2017-05-20] MEDS: FOLIC ACID 1 MG TAB PO SCH (08:18)
[2017-05-20] MEDS: PANTOPRAZOLE SODIUM 40 MG TAB PO SCH (08:18)
[2017-05-20] MEDS: VITAMIN B COMPLEX 1 EA CAP/TAB PO SCH (08:18)
[2017-05-20] MEDS: ENOXAPARIN 40 MG/0.4 ML SYR SC SCH (08:18)
[2017-05-20] MEDS: SENNOSIDES/DOCUSATE SODIUM TAB PO SCH ×2 (08:19→21:41)
[2017-05-20] MEDS: POLYETHYLENE GLYCOL 3350 17 GM PKT PO SCH (08:20)
--- NOTE | 2017-05-20 09:45 | PCMIDPN ---
Assessment/Plan: # Wound infection s/p previous T10-L5 fusion s/p I&D and removal of left L2 pedicle. Cx staph epi and enterococcus. Distal wound with necrotic material in the base and significant serosang drainage --daptomycin for coverage of CoNS and enterococcus. Daptomycin utilized for potential renal toxicity w co-administration of metformin with vancomycin --07/11/17 stop date antibiotics --discussed appearance of wound with Guille who examine later today --add on baseline CK meds daptomycin 625mg IV daily #3 Care coordinated with Perla Rob NP Subjective: patient pain is controlled no diarrhea Objective: Vital Signs Temp Pulse Resp BP Pulse Ox 36.9 C 62 16 128/59 H 96 05/20/17 07:41 05/20/17 07:41 05/20/17 07:41 05/20/17 07:41 05/20/17 07:41 Microbiology 05/16/17 15:13 Gram Stain - Final Back - Aspirate 05/16/17 15:13 Gram Stain - Final Back - Eswab Laboratory Results 05/20/17 03:45 05/20/17 03:45 05/19/17 05/20/17 05/21/17 05:59 05:59 05:59 Intake Total 200 400 Output Total 30 740 Balance 170 -340 - Physical Exam General Appearance: alert, no apparent distress EENT: pale conjunctiva, other (good dentition), No scleral icterus, No thrush Respiratory: lungs clear, No accessory muscle use Cardiac/Chest: regular rate, rhythm, systolic murmur Extremities: other (Ecchymosis right forearm associated with mild swelling) Abdomen: non-tender, soft Back: other (90cc/24h serosang fluid out of RHODA, distal wound with necrotic material in the base and saturated dressing with serosang fluid. No surrounding erythema, no purulence) Skin: warm/dry, pallor, No diaphoresis, No rash Neuro/Psych: alert, oriented x 3, depressed affect (tearful) - Line/s RUE PICC Lines: No drainage, No erythema ICD10 Worksheet Patient Problems: Problems Problem Status Onset Degenerative disc disease, lumbar Acute Pseudarthrosis Acute
[2017-05-20] MEDS: NS IV SCH (10:00)
[2017-05-20] MEDS: DAPTOMYCIN IV SCH (10:00)
--- NOTE | 2017-05-20 10:01 | HOSPPROG ---
Hospitalist Progress Note Assessment/Plan: Patient is a 76-year-old female with history of hypertension, diabetes and obesity. She had recent spine surgery. She came back the hospital with ongoing back pain worse on the left side left posterior leg pain. CT of the abdomen showed that her L2 pedicle screw was abnormal. * back pain -status post T10-L5 fusion on May 04 -POD # 4 revision of L2 screw (pain is much better but is c/o of the tape) -Tylenol scheduled, dc long acting pain medications due to sleepiness (she is doing well with current regimen controlling her pain) *wound infection -growing enterococcus and staph epi -on daptomycin (sensitive to this) -feliciano drain in place -has some distal wound drainage * anemia in the postop setting -stable * diabetes mellitus -place metformin on hold (do not resume while on Dapto) * hypertension -bp stable * sleep apnea -continue CPAP *mild hyponatremia -recheck in a.m. * morbid obesity with a BMI of 37 *dvt prophylaxis: LMWH *Plan: Patient will go to IP rehab/ bed is available, will keep her another few nights to monitor for stability. Evaluated the patient w Dr Edwards. Subjective: Poly has no significant back pain, overall feeling better. She was tearful when told it would be best to monitor for a few more days in the hospital. Objective: Vital Signs Temp Pulse Resp BP Pulse Ox 36.9 C 62 16 128/59 H 96 05/20/17 07:41 05/20/17 07:41 05/20/17 07:41 05/20/17 07:41 05/20/17 07:41 Microbiology 05/16/17 15:13 Gram Stain - Final Back - Aspirate 05/16/17 15:13 Gram Stain - Final Back - Eswab Laboratory Results 05/20/17 03:45 05/20/17 03:45 05/19/17 05/20/17 05/21/17 05:59 05:59 05:59 Intake Total 200 400 Output Total 30 740 Balance 170 -340 - Physical Exam Constitutional: appears nourished, not in pain, chronically ill appearing, obese Eyes: PERRL Ears, Nose, Mouth, Throat: hearing normal Cardiovascular: regular rate and rhythym Respiratory: no respiratory distress Gastrointestinal: normoactive bowel sounds Skin: other (low back incision w drainage at the distal end; has a feliciano drain in place with serous drainage) Musculoskeletal: generalized weakness Neurologic: AAOx3 Psychiatric: interacting appropriately, anxious ICD10 Worksheet Patient Problems: Problems Problem Status Onset Degenerative disc disease, lumbar Acute Pseudarthrosis Acute
[2017-05-20] MEDS ORDERED: LIDOCAINE 2% 5 ML SDV ID ONE (12:45)
--- NOTE | 2017-05-20 15:25 | ECHO ---
[email or web address] [address] [address] Main: [phone] Fax: [email or web address] Echocardiogram Name: AMERICO TOUSSAINT MR#: [id number] Study Date: 05/20/2017 Study Time: 02:42 PM Date of : 1940 Age: 76 year(s) Height: 167.6 cm (66 in.) Weight: 104.33 kg (230 lb.) BSA: 2.12 m2 Gender: Female Examination: Echo Indication: post op infection with enterococcus and systolic murmur Image Quality: Technically Difficult Contrast: Requested by: Odessa Edwards BP: / Heart Rate: Rhythm: Normal sinus rhythm Indication: post op infection with enterococcus and systolic murmur Procedure Staff Test Clerk: rIa Albert Reading Physician: Tin Canas Requesting Provider: Conclusions: Normal global systolic LV function. EF is 77 %. Mild mitral valve regurgitation is present. Small focal thickening/calcification on the tip of the anterior mitral leaflet; cannot rule out vegetation.. There is no aortic valve regurgitation. Consider GISELLE if clinically indicated. Measurements: Chambers Valvular Assessment AV/MV Valvular Assessment TV/PV Normal Normal Normal Name Value Range Name Value Range Name Value Range Ao Pamela (MM): 3.0 cm (2.2 cm-3.7 AV Vmax: 1.67 m/s (1 m/s-1.7 TR Vmax: 2.70 mm/s ( - ) cm) m/s) TR PGmax: 29 mmHg ( - ) IVSd (2D): 1.0 cm (0.6 cm-1.1 AV maxP mmHg ( - ) syst. PAP: 34 mmHg ( - ) cm) LVOT Vmax: 1.21 m/s (0.7 m/s-1.1 PV Vmax: 1.34 m/s (0.6 m/s-0.9 LVDd (2D): 4.9 cm (3.9 cm-5.3 m/s) m/s) cm) MV E Vmax: 1.02 m/s ( - ) PV PGmax: 7 mmHg ( - ) LVDs (2D): 2.7 cm (2.1 cm-4 MV A Vmax: 1.03 m/s ( - ) cm) MV E/A: 0.99 ( - ) LVPWd (2D): 0.8 cm ( - ) LVEF (2D): 77 (>=54 %) Continued Measurements: Chambers Valvular Assessment AV/MV Valvular Assessment TV/PV Name Value Name Value Name Value LADs Lon.4 cm MV DecTime: 243 m/s CVP (est.): 5 mmHg LA Area: 25.6 cm2 MV E/E' Septal: 14.50 LA Volume: 61 ml MV E/E' Lateral: 11.40 Patient: AMERICO TOUSSAINT Study Date: 05/20/2017 Page 1 of 2 02:42 PM LA Volume Index: 28.8 ml/m2 Additional Vessels Name Value Ao Ascendin.3 cm Findings: Left Ventricle: Normal size left ventricle. No LV hypertrophy. Normal global systolic LV function. EF is 77 %. Diastolic LV function normal for age. Right Ventricle: RV is not well visualized; grossly normal RV size and function. Left Atrium: The left atrium is normal in size. Right Atrium: The right atrium is normal in size. Mitral Valve: The mitral valve is normal in appearance. Mild mitral valve regurgitation is present. Small focal thickening/calcification on the tip of the anterior mitral leaflet; cannot rule out vegetation.. Aortic Valve: The aortic valve is tri-leaflet. Aortic sclerosis is present. There is no aortic valve regurgitation. No aortic valve stenosis is present. There is no aortic valve vegetation. Tricuspid Valve: TV valve not well visualized.. Pulmonic Valve: Pulmonary valve not visualized. Pericardium: Trivial anterior pericardial effusion. There is pericardial fat. (No Signature Object) Patient: AMERICO TOUSSAINT Study Date: 05/20/2017 Page 2 of 2 02:42 PM [id number]
--- NOTE | 2017-05-20 15:31 | ASMTCMCOM ---
CM Note CM Note Notes: Pt's wound draining and pt on IV ABX with ID following. Will not be ready for d/c to IR until Tuesday at earliest. May need I&D. Date Signed: 05/20/2017 03:31 PM Electronically Signed By:BIUN [place]
[2017-05-20] MEDS: PREGABALIN 75 MG CAP PO SCH (21:39)
[2017-05-20] MEDS: PRAMIPEXOLE 1 MG TAB PO SCH (21:39)
[2017-05-20] MEDS: NEBIVOLOL HCL 5 MG TAB PO SCH (21:40)
[2017-05-20] MEDS: METHOCARBAMOL 500 MG TAB PO SCH (21:41)
[2017-05-21] MEDS: METHOCARBAMOL 750 MG TAB PO PRN ×2 (00:20→18:44)
[2017-05-21] MEDS: oxyCODONE IR 5 MG TAB PO PRN ×4 (05:11→18:43)
[2017-05-21] MEDS: ACETAMINOPHEN 500 MG TAB PO SCH ×3 (05:11→21:36)
[2017-05-21] MEDS: FAMOTIDINE 20 MG TAB PO SCH ×2 (09:46→21:31)
[2017-05-21] MEDS: SENNOSIDES/DOCUSATE SODIUM TAB PO SCH ×2 (09:47→21:31)
[2017-05-21] MEDS: ENOXAPARIN 40 MG/0.4 ML SYR SC SCH (09:47)
[2017-05-21] MEDS: CHOLECALCIFEROL VIT D3 1,000 UNITS TAB PO SCH (09:47)
[2017-05-21] MEDS: PIOGLITAZONE HCL 15 MG TAB PO SCH (09:47)
[2017-05-21] MEDS: FOLIC ACID 1 MG TAB PO SCH (09:47)
[2017-05-21] MEDS: PANTOPRAZOLE SODIUM 40 MG TAB PO SCH (09:47)
[2017-05-21] MEDS: VITAMIN B COMPLEX 1 EA CAP/TAB PO SCH (09:47)
[2017-05-21] MEDS: POLYETHYLENE GLYCOL 3350 17 GM PKT PO SCH (09:48)
[2017-05-21] MEDS: DAPTOMYCIN IV SCH (09:56)
[2017-05-21] MEDS: NS IV SCH (09:56)
[2017-05-21 10:24] LABS: % IMMATURE GRANULYOCYTES 0.4 % (0.0-1.1); ABSOLUTE IMMATURE GRANULOCYTES 0.04 10^3/uL (0.00-0.10); ADD DIFF? NO; ADD MORPH? NO; ADD SCAN? NO; ATYPICAL LYMPHOCYTE FLAG 20 (0-99); FRAGMENT RBC FLAG 0 (0-99); HEMATOCRIT 25.4 % (38.0-47.0); HEMOGLOBIN 8.5 g/dL (12.6-16.3); LEFT SHIFT FLG 0 (0-99); LIPEMIA HEMOLYSIS FLAG 80 (0-99); MEAN CELL HEMOGLOBIN 32.1 pg (27.9-34.1); MEAN CELL HEMOGLOBIN CONCENTR. 33.5 g/dL (32.4-36.7); MEAN CELL VOLUME 95.8 fL (81.5-99.8); PLATELET CLUMPS FLAG 10 (0-99); PLATELET COUNT 366 10^3/uL (150-400); RED BLOOD CELL COUNT 2.65 10^6/uL (4.18-5.33); RED CELL DISTRIBUTION WIDTH 14.7 % (11.5-15.2)
[2017-05-21 10:37] LABS: ALANINE AMINOTRANSFERASE 27 IU/L (9-52); ALBUMIN 2.6 g/dL (3.5-5.0); ALKALINE PHOSPHATASE 132 IU/L (38-126); ANION GAP 8 mEq/L (8-16); ASPARTATE AMINOTRANSFERASE 15 IU/L (14-46); BILIRUBIN,TOTAL 0.2 mg/dL (0.1-1.4); CALCIUM 8.4 mg/dL (8.5-10.4); CARBON DIOXIDE 29 mEq/l (22-31); CHLORIDE 98 mEq/L (97-110); CREATININE 0.6 mg/dL (0.6-1.0); GLOMERULAR FILTRATION RATE > 60; GLUCOSE 83 mg/dL (70-100); SODIUM 135 mEq/L (134-144)
--- NOTE | 2017-05-21 10:52 | HOSPPROG ---
Hospitalist Progress Note Assessment/Plan: Patient is a 76-year-old female with history of hypertension, diabetes and obesity. She had recent spine surgery. She came back the hospital with ongoing back pain worse on the left side left posterior leg pain. CT of the abdomen showed that her L2 pedicle screw was abnormal. First encounter, chart reviewed. D/W RN and CM. * back pain -status post T10-L5 fusion on May 04 -POD #5 revision of L2 screw (pain is much better) -Tylenol scheduled, dc long acting pain medications due to sleepiness (she is doing well with current regimen controlling her pain) *wound infection -growing enterococcus and staph epi -on daptomycin (sensitive to this) -feliciano drain in place -appreciate ID * anemia in the postop setting -stable * diabetes mellitus -place metformin on hold (do not resume while on Dapto) * hypertension -bp stable * sleep apnea -continue CPAP *mild hyponatremia -recheck in a.m. * morbid obesity with a BMI of 37 *dvt prophylaxis: LMWH *Plan: Patient will go to rehab/ bed is available, will keep her another few nights to monitor for stability. Subjective: Feeling better today. Less pain. Moving better. Objective: Vital Signs Temp Pulse Resp BP Pulse Ox 36.6 C 62 16 144/63 H 96 05/21/17 07:29 05/21/17 07:29 05/21/17 07:29 05/21/17 07:29 05/21/17 07:29 Microbiology 05/16/17 15:13 Gram Stain - Final Back - Aspirate 05/16/17 15:13 Gram Stain - Final Back - Eswab Laboratory Results 05/21/17 10:10 05/21/17 10:10 05/20/17 05/21/17 05/22/17 05:59 05:59 05:59 Intake Total 400 780 Output Total 740 1830 Balance -340 -1050 - Physical Exam Constitutional: not in pain, chronically ill appearing, obese Eyes: PERRL, anicteric sclera, EOMI Ears, Nose, Mouth, Throat: moist mucous membranes, hearing normal, ears appear normal Cardiovascular: regular rate and rhythym, No JVD, No edema Respiratory: no respiratory distress, no rales or rhonchi, reduced air movement Gastrointestinal: normoactive bowel sounds, No tenderness, No ascites Skin: warm, No pressure ulcer, No rash Musculoskeletal: pain with ROM, muscular tenderness, generalized weakness Neurologic: AAOx3 Psychiatric: interacting appropriately, not anxious, not encephalopathic, thought process linear ICD10 Worksheet Patient Problems: Problems Problem Status Onset Pseudarthrosis Acute Degenerative disc disease, lumbar Acute
--- NOTE | 2017-05-21 11:14 | NEUSURGPN ---
Date of Surgery: 05/16/17 Post Op Day: 5 Assessment/Plan: Assessment: 76 yo F POD #5 removal of left L2 pedicle, previous T10-L5 fusion with staph epi and enterococcus wound infection Plan: -leg pain improved following surgery -staph epi and enterococcus from wound infection, on daptomycin per ID, appreciate ID help, PICC placed 05/19 -scd/aster/lovenox for dvt prophylaxis -leave RHODA in for now -PT/OT -OK to discharge to rehab from neurosurgery standpoint when cleared by ID/IM -Minimal drainage on dressing, afebrile. WBC this am 9.83 trending down -HTN/DM/anemia stable, appreciate hospitalists help with medical issues -Please call with any questions/concerns -Discussed patient with Dr Patel Subjective: Patient leg pain improved, incisional pain, denies any new pain Objective: AxO x3 PERRLA EOMI 5/ BLE Sensation intact to light touch BLE Dressing CDI aside from small quarter sized old drainage site Neuro Check Frequency: per routine Urinary Catheter in Place: No - Physician Discussed Patient with DrSenia: Guille Neurosurgery Physical Exam - Vitals, I&O, Labs I and O 05/20/17 05/21/17 05/22/17 05:59 05:59 05:59 Intake Total 400 780 Output Total 740 1830 Balance -340 -1050 Intake: Oral (ml) 400 780 Output: Urine (ml) 650 1800 Bedside Commode 600 Catheter 650 Toilet 0 1200 RHODA Drain Output (ml) 90 30 Back 90 30 Other: Intake Quantity Yes Yes Sufficient Number of Voids Bedside Commode 3 2 Toilet 1 1 Number of Stools Catheter 1 Microbiology 05/16/17 15:13 Gram Stain - Final Back - Aspirate 05/16/17 15:13 Gram Stain - Final Back - Eswab Vital Signs Temp Pulse Resp BP Pulse Ox 36.6 C 62 16 144/63 H 96 05/21/17 07:29 05/21/17 07:29 05/21/17 07:29 05/21/17 07:29 05/21/17 07:29 Laboratory Results 05/21/17 10:10 05/21/17 10:10 ICD10 Worksheet Patient Problems: Problems Problem Status Onset Degenerative disc disease, lumbar Acute Pseudarthrosis Acute
--- NOTE | 2017-05-21 15:06 | PCMIDPN ---
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 Patient's wound does not look as good as 1 would hope at this point. Dressing today was saturated at the bottom 3rd. Macerated travis wound tissue. I have concerned that daptomycin or any covering antibiotic alone will have problems resolving the issue without more debridement. Plan: 1. Continue IV daptomycin monotherapy. 2. Discuss situation with Dr. Draper 3. Continue to monitor the status of the wound. Subjective: Patient is resting in her hospital bed. She states she is very tired after having been worked out by physical therapy. No fevers or chills. Tolerating daptomycin without issue. Objective: Daptomycin #4 Vital Signs Temp Pulse Resp BP Pulse Ox 36.6 C 62 16 144/63 H 96 05/21/17 07:29 05/21/17 07:29 05/21/17 07:29 05/21/17 07:29 05/21/17 07:29 Microbiology 05/16/17 15:13 Gram Stain - Final Back - Aspirate 05/16/17 15:13 Gram Stain - Final Back - Eswab Laboratory Results 05/21/17 10:10 05/21/17 10:10 05/20/17 05/21/17 05/22/17 05:59 05:59 05:59 Intake Total 400 780 Output Total 740 1830 750 Balance -340 -1050 -750 - Physical Exam General Appearance: WD/WN, alert, no apparent distress, obese, non-toxic Respiratory: lungs clear, normal breath sounds, No respiratory distress Cardiac/Chest: regular rate, rhythm, No tachycardia Back: No normal inspection (Lumbar incision dressing saturated in the distal 1/ 3. Macerated wound at the inferior edge.) Skin: normal color, warm/dry, No rash Neuro/Psych: alert, normal mood/affect, oriented x 3 ICD10 Worksheet Patient Problems: Problems Problem Status Onset Degenerative disc disease, lumbar Acute Pseudarthrosis Acute
--- NOTE | 2017-05-21 15:51 | PDIAF ---
- Diagnosis Diagnosis: T10-L5 fusion 04/24 with removal of left L2 screw 05/13 Code Status: Full Code - Medication Management Discharge Medications: Medications to Continue on Transfer Cholecalciferol Vit D3 [Vitamin D3 (*)] 1,000 units PO DAILY 04/25/17 [Last Taken 05/13/17] Nebivolol HCl [Bystolic] 20 mg PO HS 04/25/17 [Last Taken 05/12/17] Pioglitazone HCl [Actos] 45 mg PO DAILY 04/25/17 [Last Taken 05/13/17] Pramipexole Di-HCl [Mirapex 1 mg (*)] 2 mg PO HS 04/25/17 [Last Taken 05/12/17] Pregabalin [Lyrica 75mg (*)] 150 mg PO HS 04/25/17 [Last Taken 05/12/17] metFORMIN HCL [Glucophage 1000 mg] 1,000 mg PO HS 04/25/17 [Last Taken 05/12/17] Potassium Cl [Klor-Con 20 meq (*)] 20 meq PO DAILY tab 05/11/17 [Last Taken 01/20] Acetaminophen [Tylenol ES 500 mg (*)] 1,000 mg PO Q8HRS PRN tab 05/13/17 [Last Taken 05/13/17 06:00] Pantoprazole Sodium [Protonix 40mg (*)] 40 mg PO DAILY 05/13/17 [Last Taken 01/20] Polyethylene Glycol 3350 [Miralax 17 gm (*)] 17 gm PO DAILY 05/13/17 [Last Taken 05/13/17] oxyCODONE IR [Oxycodone Ir (*)] 5 - 15 mg PO Q3HRS PRN tab 05/13/17 [Last Taken 05/13/17 10:12] Cyclobenzaprine [Flexeril 10 MG (*)] 10 mg PO TID PRN tab 05/21/17 [Last Taken Unknown] DAPTOmycin [Cubicin] 625 mg IV DAILY@1000 ml 05/21/17 [Last Taken Unknown] Diazepam [Valium 5 MG (*)] 5 mg PO Q6 PRN tab 05/21/17 [Last Taken Unknown] Enoxaparin [Lovenox 40 MG (*)] 40 mg SC DAILY syr 05/21/17 [Last Taken Unknown] Famotidine [Pepcid 20 MG (*)] 20 mg PO BID tab 05/21/17 [Last Taken Unknown] Methocarbamol [Robaxin 500 mg (*)] 1,000 mg PO HS tab 05/21/17 [Last Taken Unknown] Methocarbamol [Robaxin 750 mg (*)] 750 mg PO QID PRN tab 05/21/17 [Last Taken Unknown] Pioglitazone HCl [Actos 15mg (*)] 45 mg PO DAILY tab 05/21/17 [Last Taken Unknown] Sennosides/Docusate Sodium [Senokot-S] 1 - 2 tab PO BID tab 05/21/17 [Last Taken Unknown] Sde Antibiotics: Daptomycin 625mg IV QDay Discharge Medications: Refer to the Discharge Home Medication list for PRN reason. PICC Care - Routine: Yes - Orders Services needed: Registered Nurse, Certified Youth Manager, Master Disability Benefits Specialist , Physical Therapy, Occupational Therapy Isolation Type: None Diet Recommendation: no restrictions on diet Diet Texture: Regular Texture Diet Trung Stockings Discontinue Date: when ambulating 100-200 yards daily 3-4 times per day Wound Care Instructions: Change back dressing BID Activity/Weight Bearing Restrictions: No bending, lifting greater than 10 pounds or twisting Equipment: Wear brace when out of bed Additional: Dressing changed BID. Duration of Daptomycin - Follow Up Care Current Providers and Referrals: Patient,NotPresent [Primary Care Provider] - Jamil Han MD [Medical Doctor] - follow up in 2 weeks
[2017-05-21] MEDS: METHOCARBAMOL 500 MG TAB PO SCH (21:31)
[2017-05-21] MEDS: NEBIVOLOL HCL 5 MG TAB PO SCH (21:32)
[2017-05-21] MEDS: PRAMIPEXOLE 1 MG TAB PO SCH (21:36)
[2017-05-21] MEDS: PREGABALIN 75 MG CAP PO SCH (21:36)
[2017-05-22] MEDS: oxyCODONE IR 5 MG TAB PO PRN ×5 (02:58→20:28)
[2017-05-22] MEDS: DIAZEPAM 5 MG TAB PO PRN (02:59)
[2017-05-22 05:35] LABS: % IMMATURE GRANULYOCYTES 0.6 % (0.0-1.1); ABSOLUTE IMMATURE GRANULOCYTES 0.06 10^3/uL (0.00-0.10); ADD DIFF? NO; ADD MORPH? NO; ADD SCAN? NO; ATYPICAL LYMPHOCYTE FLAG 20 (0-99); FRAGMENT RBC FLAG 0 (0-99); HEMATOCRIT 27.6 % (38.0-47.0); HEMOGLOBIN 9.1 g/dL (12.6-16.3); LEFT SHIFT FLG 0 (0-99); LIPEMIA HEMOLYSIS FLAG 80 (0-99); MEAN CELL HEMOGLOBIN 31.3 pg (27.9-34.1); MEAN CELL VOLUME 94.8 fL (81.5-99.8); MEAN PLATELET VOLUME 8.9 fL (8.7-11.7); PLATELET CLUMPS FLAG 0 (0-99); PLATELET COUNT 347 10^3/uL (150-400); RED BLOOD CELL COUNT 2.91 10^6/uL (4.18-5.33); RED CELL DISTRIBUTION WIDTH 14.8 % (11.5-15.2)
[2017-05-22] MEDS: ACETAMINOPHEN 500 MG TAB PO SCH ×3 (05:38→20:27)
[2017-05-22 05:51] LABS: ALANINE AMINOTRANSFERASE 28 IU/L (9-52); ALBUMIN 2.6 g/dL (3.5-5.0); ALKALINE PHOSPHATASE 140 IU/L (38-126); ANION GAP 8 mEq/L (8-16); ASPARTATE AMINOTRANSFERASE 15 IU/L (14-46); BILIRUBIN,TOTAL 0.2 mg/dL (0.1-1.4); CALCIUM 8.3 mg/dL (8.5-10.4); CARBON DIOXIDE 28 mEq/l (22-31); CHLORIDE 99 mEq/L (97-110); CREATININE 0.6 mg/dL (0.6-1.0); GLOMERULAR FILTRATION RATE > 60; GLUCOSE 117 mg/dL (70-100); POTASSIUM 4.2 mEq/L (3.5-5.2); SODIUM 135 mEq/L (134-144)
--- NOTE | 2017-05-22 07:21 | NEUSURGPN ---
Date of Surgery: 05/16/17 Post Op Day: 6 Assessment/Plan: Assessment: 76 yo F POD #5 removal of left L2 pedicle, previous T10-L5 fusion with staph epi and enterococcus wound infection Plan: -leg pain improved following surgery -staph epi and enterococcus from wound infection, on daptomycin per ID, appreciate ID help, PICC placed 05/19 -scd/aster/lovenox for dvt prophylaxis -leave RHODA in for now -PT/OT -OK to discharge to rehab from neurosurgery standpoint on Tuesday -Dr Patel does not find there to be an indication for I&D at this time, will continue to monitor drainage, WBC stable this am -Dressing changes BID -Please call with any questions/concerns -Discussed patient with Dr Patel Subjective: Patient leg pain much improved Objective: AxO x3 PERRLA EOMI 10/08 BLE Sensation intact to light touch BLE Dressing CDI RHODA patent Neuro Check Frequency: per routine Urinary Catheter in Place: No - Physician Discussed Patient with : Guille Lugo Physical Exam - Vitals, I&O, Labs I and O 05/21/17 05/22/17 05/23/17 05:59 05:59 05:59 Intake Total 780 1000 Output Total 1830 1600 530 Balance -1050 -600 -530 Intake: Oral (ml) 780 1000 Output: Urine (ml) 1800 1600 500 Bedside Commode 600 1600 500 Toilet 1200 RHODA Drain Output (ml) 30 30 Back 30 30 Other: Intake Quantity Yes Yes Sufficient Number of Voids Bedside Commode 2 1 1 Toilet 1 1 Vital Signs Temp Pulse Resp BP Pulse Ox 36.9 C 67 16 144/61 H 94 05/21/17 22:54 05/21/17 22:54 05/21/17 22:54 05/21/17 22:54 05/21/17 22:54 Laboratory Results 05/22/17 05:30 05/22/17 05:30 ICD10 Worksheet Patient Problems: Problems Problem Status Onset Degenerative disc disease, lumbar Acute Pseudarthrosis Acute
[2017-05-22] MEDS: DAPTOMYCIN IV SCH (09:44)
[2017-05-22] MEDS: POLYETHYLENE GLYCOL 3350 17 GM PKT PO SCH (09:44)
[2017-05-22] MEDS: NS IV SCH (09:44)
[2017-05-22] MEDS: PIOGLITAZONE HCL 15 MG TAB PO SCH (09:44)
[2017-05-22] MEDS: ENOXAPARIN 40 MG/0.4 ML SYR SC SCH (09:44)
[2017-05-22] MEDS: VITAMIN B COMPLEX 1 EA CAP/TAB PO SCH (09:45)
[2017-05-22] MEDS: PANTOPRAZOLE SODIUM 40 MG TAB PO SCH (09:45)
[2017-05-22] MEDS: SENNOSIDES/DOCUSATE SODIUM TAB PO SCH ×2 (09:45→20:30)
[2017-05-22] MEDS: CHOLECALCIFEROL VIT D3 1,000 UNITS TAB PO SCH (09:45)
[2017-05-22] MEDS: FAMOTIDINE 20 MG TAB PO SCH ×2 (09:45→20:25)
--- NOTE | 2017-05-22 11:17 | HOSPPROG ---
Hospitalist Progress Note Assessment/Plan: Patient is a 76-year-old female with history of hypertension, diabetes and obesity. She had recent spine surgery. She came back the hospital with ongoing back pain worse on the left side left posterior leg pain. CT of the abdomen showed that her L2 pedicle screw was abnormal. * back pain -status post T10-L5 fusion on May 04 -POD #6 revision of L2 screw (pain is much better) -Tylenol scheduled, dc long acting pain medications due to sleepiness (she is doing well with current regimen controlling her pain) *wound infection -growing enterococcus and staph epi -on daptomycin (sensitive to this) -feliciano drain in place -appreciate ID -wound still having significant drainage * anemia in the postop setting -stable * diabetes mellitus -place metformin on hold (do not resume while on Dapto) * hypertension -bp stable * sleep apnea -continue CPAP *mild hyponatremia -recheck in a.m. * morbid obesity with a BMI of 37 *dvt prophylaxis: LMWH *Plan: Patient will go to IP rehab/ bed is available, will keep her another few nights to monitor for stability. Subjective: Feeling ok. Still some pain with movement. No other issues. Objective: Vital Signs Temp Pulse Resp BP Pulse Ox 36.8 C 62 16 142/69 H 95 05/22/17 07:44 05/22/17 07:44 05/22/17 07:44 05/22/17 07:44 05/22/17 07:44 Laboratory Results 05/22/17 05:30 05/22/17 05:30 05/21/17 05/22/17 05/23/17 05:59 05:59 05:59 Intake Total 780 1000 Output Total 1830 1600 530 Balance -1050 -600 -530 - Physical Exam Constitutional: obese, uncomfortable Eyes: PERRL, anicteric sclera Ears, Nose, Mouth, Throat: moist mucous membranes, hearing normal Cardiovascular: No JVD, No edema Respiratory: no respiratory distress, reduced air movement Gastrointestinal: No tenderness, No ascites Skin: warm, normal color, No rash Musculoskeletal: no joint effusions, pain with ROM, generalized weakness Neurologic: AAOx3 Psychiatric: interacting appropriately, not anxious, not encephalopathic, thought process linear ICD10 Worksheet Patient Problems: Problems Problem Status Onset Pseudarthrosis Acute Degenerative disc disease, lumbar Acute
--- NOTE | 2017-05-22 12:38 | PCMIDPN ---
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 Patient's wound continues to lose drain significantly from the inferior portion. Current plan is to continue the daptomycin intravenously and transfer the patient to inpatient rehab tomorrow and monitor the wound over time. Plan: 1. Continue IV daptomycin monotherapy. 2. Continue to monitor the status of the wound. 05/22/17 16:21 Subjective: Patient remains stable. She is resting comfortably in bed. She denies any fevers or chills. Still feels very tired. No rash. No diarrhea. No muscle pain. Objective: Daptomycin # 5 Vital Signs Temp Pulse Resp BP Pulse Ox 36.8 C 62 16 142/69 H 95 05/22/17 07:44 05/22/17 07:44 05/22/17 07:44 05/22/17 07:44 05/22/17 07:44 Laboratory Results 05/22/17 05:30 05/22/17 05:30 05/21/17 05/22/17 05/23/17 05:59 05:59 05:59 Intake Total 780 1000 Output Total 1830 1600 530 Balance -1050 -600 -530 - Physical Exam General Appearance: WD/WN, alert, no apparent distress, non-toxic Respiratory: lungs clear, normal breath sounds, No respiratory distress Cardiac/Chest: regular rate, rhythm, No tachycardia Skin: normal color, warm/dry, No rash Neuro/Psych: alert, normal mood/affect, oriented x 3 ICD10 Worksheet Patient Problems: Problems Problem Status Onset Degenerative disc disease, lumbar Acute Pseudarthrosis Acute
[2017-05-22] MEDS: FOLIC ACID 1 MG TAB PO SCH (13:12)
[2017-05-22] MEDS: METHOCARBAMOL 500 MG TAB PO SCH (20:25)
[2017-05-22] MEDS: NEBIVOLOL HCL 5 MG TAB PO SCH (20:26)
[2017-05-22] MEDS: PRAMIPEXOLE 1 MG TAB PO SCH (20:28)
[2017-05-22] MEDS: PREGABALIN 75 MG CAP PO SCH (20:31)
[2017-05-23] MEDS: ACETAMINOPHEN 500 MG TAB PO SCH ×2 (04:30→13:56)
[2017-05-23] MEDS: oxyCODONE IR 5 MG TAB PO PRN ×3 (04:31→13:57)
[2017-05-23 05:12] LABS: % IMMATURE GRANULYOCYTES 0.5 % (0.0-1.1); ABSOLUTE IMMATURE GRANULOCYTES 0.04 10^3/uL (0.00-0.10); ADD DIFF? NO; ADD MORPH? NO; ADD SCAN? NO; ATYPICAL LYMPHOCYTE FLAG 20 (0-99); FRAGMENT RBC FLAG 0 (0-99); HEMATOCRIT 28.8 % (38.0-47.0); HEMOGLOBIN 9.6 g/dL (12.6-16.3); LEFT SHIFT FLG 0 (0-99); LIPEMIA HEMOLYSIS FLAG 80 (0-99); MEAN CELL HEMOGLOBIN CONCENTR. 33.3 g/dL (32.4-36.7); MEAN PLATELET VOLUME 9.3 fL (8.7-11.7); PLATELET CLUMPS FLAG 10 (0-99); PLATELET COUNT 356 10^3/uL (150-400); RED CELL DISTRIBUTION WIDTH 14.9 % (11.5-15.2)
[2017-05-23 06:32] LABS: ALANINE AMINOTRANSFERASE 28 IU/L (9-52); ALBUMIN 2.6 g/dL (3.5-5.0); ALKALINE PHOSPHATASE 148 IU/L (38-126); ANION GAP 7 mEq/L (8-16); ASPARTATE AMINOTRANSFERASE 16 IU/L (14-46); CALCIUM 8.2 mg/dL (8.5-10.4); CARBON DIOXIDE 29 mEq/l (22-31); CHLORIDE 100 mEq/L (97-110); CREATININE 0.6 mg/dL (0.6-1.0); GLOMERULAR FILTRATION RATE > 60; GLUCOSE 99 mg/dL (70-100); POTASSIUM 4.7 mEq/L (3.5-5.2); SODIUM 136 mEq/L (134-144)
[2017-05-23 06:38] LABS: BILIRUBIN,TOTAL < 0.1 mg/dL (0.1-1.4)
[2017-05-23 07:42] VITALS: BP 141/60; PULSE 66; TEMP 98.2; O2SAT 95
--- NOTE | 2017-05-23 07:53 | GPROG ---
[f rep st] PROGRESS NOTE The patient was seen and examined today. I also met with the daughter. We discussed patient's complicated issues regarding her wound and ongoing drainage. Everybody that has been seeing the patient, including the patient's nurse and PA over the weekend, feel as though the drainage is slowly decreasing. Her white count is low. She has been afebrile and has not had any fevers, sweats, or chills. She has been feeling better every day. Based on all of this, I felt that it was in her best interest to hold course and hope the drainage decreases. She still has the subfascial drain in place, which is working. I discussed this in great detail with the patient, her daughter, as well as Dr. Seo, the Infectious Disease specialist, and we are all in agreement that this is a reasonable course, and we will go from here. /[id number]/MODL MTDD
[2017-05-23] MEDS: ENOXAPARIN 40 MG/0.4 ML SYR SC SCH (08:34)
[2017-05-23] MEDS: PIOGLITAZONE HCL 15 MG TAB PO SCH (08:34)
[2017-05-23] MEDS: VITAMIN B COMPLEX 1 EA CAP/TAB PO SCH (08:35)
[2017-05-23] MEDS: CHOLECALCIFEROL VIT D3 1,000 UNITS TAB PO SCH (08:35)
[2017-05-23] MEDS: FOLIC ACID 1 MG TAB PO SCH (08:35)
[2017-05-23] MEDS: PANTOPRAZOLE SODIUM 40 MG TAB PO SCH (08:35)
[2017-05-23] MEDS: FAMOTIDINE 20 MG TAB PO SCH (08:35)
[2017-05-23] MEDS: SENNOSIDES/DOCUSATE SODIUM TAB PO SCH (08:39)
[2017-05-23] MEDS: POLYETHYLENE GLYCOL 3350 17 GM PKT PO SCH (08:44)
--- NOTE | 2017-05-23 11:49 | ASMTCMCOM ---
CM Note CM Note Notes: Per hopsitalist, patient able to return to inpt rehab today. Call to rehab. currently reviewing. Intake to call me with bed assignment then I will call [facility] for stretcher transport. CM to follow. Date Signed: 05/23/2017 11:38 AM Electronically Signed By:Mary Funes RN
[2017-05-23] MEDS: NS IV SCH (12:04)
[2017-05-23] MEDS: DAPTOMYCIN IV SCH (12:04)
--- NOTE | 2017-05-23 12:50 | PDIAF ---
- Diagnosis Diagnosis: T10-L5 fusion 04/24 with removal of left L2 screw 05/13 Code Status: Full Code - Medication Management Discharge Medications: Medications to Continue on Transfer Cholecalciferol Vit D3 [Vitamin D3 (*)] 1,000 units PO DAILY 04/25/17 [Last Taken 05/13/17] Nebivolol HCl [Bystolic] 20 mg PO HS 04/25/17 [Last Taken 05/12/17] Pioglitazone HCl [Actos] 45 mg PO DAILY 04/25/17 [Last Taken 05/13/17] Pramipexole Di-HCl [Mirapex 1 mg (*)] 2 mg PO HS 04/25/17 [Last Taken 05/12/17] Pregabalin [Lyrica 75mg (*)] 150 mg PO HS 04/25/17 [Last Taken 05/12/17] metFORMIN HCL [Glucophage 1000 mg] 1,000 mg PO HS 04/25/17 [Last Taken 05/12/17] Potassium Cl [Klor-Con 20 meq (*)] 20 meq PO DAILY tab 05/11/17 [Last Taken 01/20] Acetaminophen [Tylenol ES 500 mg (*)] 1,000 mg PO Q8HRS PRN tab 05/13/17 [Last Taken 05/13/17 06:00] Pantoprazole Sodium [Protonix 40mg (*)] 40 mg PO DAILY 05/13/17 [Last Taken 01/20] Polyethylene Glycol 3350 [Miralax 17 gm (*)] 17 gm PO DAILY 05/13/17 [Last Taken 05/13/17] oxyCODONE IR [Oxycodone Ir (*)] 5 - 15 mg PO Q3HRS PRN tab 05/13/17 [Last Taken 05/13/17 10:12] Cyclobenzaprine [Flexeril 10 MG (*)] 10 mg PO TID PRN tab 05/21/17 [Last Taken Unknown] DAPTOmycin [Cubicin] 625 mg IV DAILY@1000 ml 05/21/17 [Last Taken Unknown] Diazepam [Valium 5 MG (*)] 5 mg PO Q6 PRN tab 05/21/17 [Last Taken Unknown] Enoxaparin [Lovenox 40 MG (*)] 40 mg SC DAILY syr 05/21/17 [Last Taken Unknown] Famotidine [Pepcid 20 MG (*)] 20 mg PO BID tab 05/21/17 [Last Taken Unknown] Methocarbamol [Robaxin 500 mg (*)] 1,000 mg PO HS tab 05/21/17 [Last Taken Unknown] Methocarbamol [Robaxin 750 mg (*)] 750 mg PO QID PRN tab 05/21/17 [Last Taken Unknown] Pioglitazone HCl [Actos 15mg (*)] 45 mg PO DAILY tab 05/21/17 [Last Taken Unknown] Sennosides/Docusate Sodium [Senokot-S] 1 - 2 tab PO BID tab 05/21/17 [Last Taken Unknown] Stock Parts Inspector Antibiotics: Daptomycin 625mg IV QDay Stock Parts Inspector Antibiotic Stop Date: 07/11/17 Discharge Medications: Refer to the Discharge Home Medication list for PRN reason. PICC Care - Routine: Yes - Orders Services needed: Registered Nurse, Certified Circuit Board Repair Technician, Master Senior Capital Markets Specialist , Physical Therapy, Occupational Therapy Isolation Type: None Diet Recommendation: no restrictions on diet Diet Texture: Regular Texture Diet Trung Stockings Discontinue Date: when ambulating 100-200 yards daily 3-4 times per day Wound Care Instructions: Change back dressing BID Activity/Weight Bearing Restrictions: No bending, lifting greater than 10 pounds or twisting Equipment: Wear brace when out of bed Additional: Dressing changed BID. Duration of Daptomycin - Labs/Radiology CBC w/diff Date: 05/26/17 (weekly) CMP Date: 05/26/17 (weekly) CPK Date: 05/26/17 (q MON and TH) Call or Fax Lab and Imaging Results to: Dr. Paolo Seo - Follow Up Care Current Providers and Referrals: Patient,NotPresent [Primary Care Provider] - Jamil Han MD [Medical Doctor] - follow up in 2 weeks
--- NOTE | 2017-05-23 13:25 | HOSPPROG ---
Hospitalist Progress Note Assessment/Plan: Patient is a 76-year-old female with history of hypertension, diabetes and obesity. She had recent spine surgery. She came back the hospital with ongoing back pain worse on the left side left posterior leg pain. CT of the abdomen showed that her L2 pedicle screw was abnormal. * back pain -status post T10-L5 fusion on May 04 -POD #7 revision of L2 screw (pain is much better) -Tylenol scheduled, dc long acting pain medications due to sleepiness (she is doing well with current regimen controlling her pain) *wound infection -growing enterococcus and staph epi -on daptomycin (sensitive to this) -feliciano drain in place -appreciate ID -wound still having significant drainage * anemia in the postop setting -stable * diabetes mellitus -place metformin on hold (do not resume while on Dapto) * hypertension -bp stable * sleep apnea -continue CPAP *mild hyponatremia -recheck in a.m. * morbid obesity with a BMI of 37 *dvt prophylaxis: LMWH *Plan: Patient will go to IP rehab/ bed is available, will keep her another few nights to monitor for stability. Subjective: Feeling better. Less pain. Objective: Vital Signs Temp Pulse Resp BP Pulse Ox 36.8 C 66 16 141/60 H 95 05/23/17 07:39 05/23/17 07:39 05/23/17 07:39 05/23/17 07:39 05/23/17 07:39 Microbiology 05/16/17 15:13 Gram Stain - Final Back - Aspirate 05/16/17 15:13 Gram Stain - Final Back - Eswab Laboratory Results 05/23/17 04:30 05/23/17 04:30 05/22/17 05/23/17 05/24/17 05:59 05:59 05:59 Intake Total 1000 540 Output Total 1600 575 Balance -600 -35 - Physical Exam Constitutional: chronically ill appearing, obese, uncomfortable Eyes: PERRL, anicteric sclera, EOMI Ears, Nose, Mouth, Throat: moist mucous membranes, hearing normal, ears appear normal Cardiovascular: No JVD, No edema Respiratory: no respiratory distress, reduced air movement Gastrointestinal: No tenderness, No ascites Skin: warm, normal color, No erythema Musculoskeletal: pain with ROM, generalized weakness Neurologic: AAOx3 Psychiatric: not anxious, not encephalopathic ICD10 Worksheet Patient Problems: Problems Problem Status Onset Pseudarthrosis Acute Degenerative disc disease, lumbar Acute
[2017-05-23] MEDS: METHOCARBAMOL 750 MG TAB PO PRN (13:57)
--- NOTE | 2017-05-24 11:18 | ASDISCHSUM ---
Discharge Information Plan Status:Inpatient Rehab Medically Cleared to Leave:05/22/2017 Discharge Date:05/23/2017 02:26 PM CM D/C Disposition: ADT D/C Disposition:[facility] IP Projected Discharge Date:05/23/2017 02:26 PM Transportation at D/C:Wheelchair Van Discharge Delay Reason: Follow-Up Date:05/23/2017 02:26 PM Discharge Slot: Final Diagnosis: Placement Information Patient Contact Information Contact Name:MIKALA Relationship:Daughter Address: Work Phone: City:[facility] Phone: State/Zip Code:[place] Email: Financial Information Financial Class: Primary Plan Desc:MEDICARE INPATIENT Primary Plan Number:[id number] [facility] Secondary Plan Number:[id number] Assessment Information [facility] CM Progress Note CM Note CM Note Notes: Pt in from [facility] inpatient rehab for pain control (she she was d/c from [facility] to inpatient rehab 05/11/17), will have revision Tuesday05/16/17. Therapy unable to work w pt today due to pain. CM to follow. D/c plan of care: After revision assess if pt appropriate for return to [facility] inpatient rehab. Date Signed: 05/14/2017 02:06 PM Electronically Signed By:BINU Stevens [facility] CM Progress Note CM Note CM Note Notes: Patient going to OR with neurosurgery today to have her L2 screw removed (she is s/p surgery 05/04). She is still c/o excessive pain. Therapies will initiate assessments when she is back from surgery, and ideally she can return to rehab at [facility] Inpatient Rehab when stable. Michelle @ Inpatient Rehab notified. Date Signed: 05/16/2017 12:05 PM Electronically Signed By:Altagracia Oscar RN [facility] CM Progress Note CM Note CM Note Notes: Patient is POD #2 L2 screw revision. X-rays pending. An ID consult has also been ordered d/t + blood cultures. Patient will work with therapies today; [facility] inpatient rehab is following. Anticipate discharge back to inpatient rehab when medically stable. CM will follow. Date Signed: 05/18/2017 11:05 AM Electronically Signed By:Altagracia Oscar RN [facility] CM Progress Note CM Note CM Note Notes: Chart reviewed. Pt also followed by ID for fluid collection at surgical site. Spoke with Michelle at in rehab. Plan is for pt to returm to inpatient rehab when medically stable. CM to follow. Date Signed: 05/19/2017 02:10 PM Electronically Signed By:Mary Funes RN [facility] CM Progress Note CM Note CM Note Notes: Pt's wound draining and pt on IV ABX with ID following. Will not be ready for d/c to IR until Tuesday at earliest. May need I&D. Date Signed: 05/20/2017 03:31 PM Electronically Signed By:BINU [place] [facility] CM Progress Note CM Note CM Note Notes: Per hopsitalist, patient able to return to inpt rehab today. Call to rehab. currently reviewing. Intake to call me with bed assignment then I will call [facility] for stretcher transport. CM to follow. Date Signed: 05/23/2017 11:38 AM Electronically Signed By:Mary Funes RN Intervention Information Intervention Type:*IM-Signed Date of Service:05/23/2017 02:38 PM Patient Type:Inpatient Staff Member:Ave Samuel Hours: Discipline: Severity: Comment:
== END 2017-05-23 14:26 | DRG 517 ==
LOC: F3N 17:14
PROVIDERS: ADMIT Neurological Surgery; ATTEND Neurological Surgery
DX: T84.226A Displacement of internal fixation device of vertebrae, initial encounter (principal); T84.63XA Infection and inflammatory reaction due to internal fixation device of spine, initial encounter; G89.18 Other acute postprocedural pain; D64.9 Anemia, unspecified; I10 Essential (primary) hypertension; K21.9 Gastro-esophageal reflux disease without esophagitis; E11.9 Type 2 diabetes mellitus without complications; G47.33 Obstructive sleep apnea (adult) (pediatric); E66.01 Morbid (severe) obesity due to excess calories; B95.7 Other staphylococcus as the cause of diseases classified elsewhere; B95.2 Enterococcus as the cause of diseases classified elsewhere; Z98.1 Arthrodesis status; Z79.84 Long term (current) use of oral hypoglycemic drugs; Z68.37 Body mass index [BMI] 37.0-37.9, adult
CPT/HCPCS: 97116-GP; 97161-GP; 97166-GO; 97530-GO; 97530-GP; 97535-GO; A9585; C1751; G8978-GP-CL; G8979-GP-CJ; G8987-GO-CM; G8988-GO-CK; J0171; J0690; J0878; J1100; J1170; J1650; J2370; J2405; J2704; J3010; J7060

== ENCOUNTER 2017-05-23 14:55 | Inpatient (IN) | payer OTHER ==
[2017-05-23] MEDS ORDERED: CYCLOBENZAPRINE 10 MG TAB PO PRN (15:42)
[2017-05-23] MEDS ORDERED: DIAZEPAM 5 MG TAB PO PRN (15:42)
[2017-05-23] MEDS ORDERED: ALTEPLASE 2 MG VIAL IVP ONE (15:46)
[2017-05-23] MEDS ORDERED: BISACODYL 10 MG SUPP PR PRN (16:48)
--- NOTE | 2017-05-23 16:56 | PDOREHIP ---
Admission [facility] - Admission - 3 Day Assessment Period Admission Date/Day 1: 05/23/17 Day 2: 05/24/17 Day 3: 05/25/17 - Active Diagnoses Comorbidities and Co-existing Conditions at Admission: 68374. DM (e.g. diabetic retinopathy, nephropathy, and neuropathy) - Skin Conditions Unhealed Pressure Ulcer (1 or more/Stage 1 or >)-Admission: 0. No
--- NOTE | 2017-05-23 17:50 | GHP ---
[f rep st] HISTORY AND PHYSICAL POST ADMISSION PHYSICIAN EVALUATION AND REHABILITATION TREATMENT PLAN. DATE OF ADMISSION: 05/23/2017 DATE OF EVALUATION: 05/23/2017. TIME OF EVALUATION: 1605. REFERRING FACILITY: [facility]. REFERRING PHYSICIAN: Jamil Han MD IMPAIRMENT GROUP: [id number]. DATE OF ONSET: 05/03/2017. CONSULTING PHYSICIANS: There were consultations with hospitalist service, Dr. Akers, and with the Infectious Disease service, Dr. Seo. REHABILITATION DIAGNOSIS: Debility status post revision of lumbar surgery. ETIOLOGIC DIAGNOSIS: Other orthopedic. DATE OF SURGERY: 05/03/2017. She had subsequent surgery on 05/16/2017. HISTORY OF PRESENT ILLNESS: This is a readmission to inpatient rehabilitation for this patient. She was initially admitted on 05/11/2017, following extensive revision of lumbar surgery for failed hardware and resulting scoliosis. Her progress in rehabilitation was limited by severe left-sided back and flank pain for which she was rehospitalized after a lumbar CT scan showed the possibility of a malpositioned screw head impinging on a nerve root. She had repeat surgery and the screw was removed from the L2 pedicle and hardware replaced without the screw. She had intraoperative cultures taken, which subsequently grew Enterococcus faecalis and Staphylococcus epidermidis. There was an Infectious Disease consult. She is being treated with daptomycin for a total of 8 weeks. She reports that the doctors at the hospital wanted to repeat surgery because of the infection and she declined it. The revision of the pedicle screw was done on 05/16/2017. Postsurgery, the pain which she had in the rehabilitation unit remitted and now she complains of some pain along her incision and she gets a feeling of a wad or a muscle cramp in her right buttocks from [id number]. Eventually during the course of her hospitalization, long-acting morphine was discontinued as it was causing too much sedation. The wound infection complicated her stay and prolonged her hospital stay. She has a RHODA drain in place and continues to have significant drainage. Otherwise, she was participating in therapy and medically stable for inpatient rehabilitation. LABORATORIES AND STUDIES DURING HER STAY: She had a CBC done today with a hemoglobin of 9.6 and hematocrit of 28.8. This was improved from a brandy of 8.5 in 25.4 on the . Serum chemistry showed normal renal function and electrolytes. There was mild hyponatremia which resolved. She had mildly elevated blood sugars. Metformin has been held due to interaction with daptomycin. Liver tests showed a mildly low albumin at 2.6 and an elevated alkaline phosphatase at 148; otherwise were overall within normal limits. PRECAUTIONS: She is a fall risk. She has orthopedic precautions for the lumbar spine. ACTIVE COMORBIDITIES: She has the tier 3 comorbidities of morbid obesity and diabetes mellitus with manifestation. She otherwise has no active tier 1, tier 2 or tier 3 comorbidities. PAST MEDICAL HISTORY: 1. Diabetes mellitus type 2. 2. Hypertension. 3. Obstructive sleep apnea. 4. Stress incontinence. 5. Diverticulosis. 6. Heartburn. 7. Bilateral lower extremity edema. 8. Chronic pain in the back and legs. 9. Diabetic peripheral neuropathy. PAST SURGICAL HISTORY: 1. Tonsillectomy. 2. Bilateral knee replacement. 3. Laparoscopic cholecystectomy. 4. Lumbar fusion. 5. Shrapnel excision from the arm. 6. Breast cyst excision. 7. Hysterectomy and oophorectomy. 8. Cataract extraction with intra-ocular lens replacement. PRE-HOSPITAL MEDICATIONS: At this point, are fairly remote. It is of note that she was treated with furosemide as well as metolazone and these were discontinued. ADMISSION MEDICATIONS: 1. Acetaminophen 1000 mg p.o. q.8 hours. 2. Alteplase 2 mg IV push p.r.n. PICC line occlusion. 3. Cholecalciferol 1000 mg p.o. daily. 4. Daptomycin 625 mg IV daily at 10:00 a.m. through July 11, 2017. 5. Diazepam 5 mg p.o. q.6 hours p.r.n. 6. Enoxaparin p.r.n. muscle spasm. 7. Enoxaparin 40 mg subcutaneous daily. 8. Famotidine 20 mg p.o. twice daily. 9. Methocarbamol 1000 mg p.o. at bedtime and 750 mg p.o. four times daily p.r.n. 10. Nebivolol 20 mg p.o. at bedtime. 11. Oxycodone 5-15 mg p.o. q.3 hours p.r.n. 12. Pantoprazole 40 mg p.o. daily. 13. Pioglitazone 45 mg p.o. daily. 14. Polyethylene glycol 17 g p.o. daily. 15. Potassium chloride 20 mEq p.o. daily. 16. Pramipexole 2 mg p.o. at bedtime. 17. Pregabalin 150 mg p.o. at bedtime. 18. Senna/docusate 2 tabs p.o. twice daily. ALLERGIES: Listed to sodium hypochlorite bleach and to penicillin. FAMILY HISTORY: Noncontributory. PSYCHOSOCIAL HISTORY: She is retired. She lives in [place] in her own home with a granddaughter who lives there and help from a local daughter as well. There are no stairs to enter the house and no stairs within the house. She has a history of smoking. She has 3 children, 1 of whom is out of state. 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 REVIEW OF SYSTEMS: She reports that she has been sleeping well and using CPAP. Pain overall is well controlled. She does get muscle spasms in the right buttock. She has had constipation times several days. Her appetite is good. She has no nausea or vomiting. She has no dysuria or urinary frequency. She has no joint pain or joint swelling. She denies skin rash or skin breakdown. Otherwise, a 10-point review of systems is negative. PHYSICAL EXAM: VITAL SIGNS: Blood pressure is 103/59, heart rate is 83, respiratory rate is 16, oxygen saturation is 90% on room air. Temperature is 37 degrees centigrade. Her weight is 99.8 kg for a body mass index of 33.5. GENERAL: This is a well-nourished, well-developed, obese woman lying in bed in a hospital gown, cooperative and in no acute distress. HEENT: Extraocular movements are intact. Pupils are equal, round, reactive to light. Mucous membranes are moist. Dentition is in good condition. NECK: Supple. HEART: Regular rate and rhythm with no murmurs, rubs, or gallops. LUNGS: Clear to auscultation bilaterally. ABDOMEN: Soft, diffusely tender, mildly distended with normoactive bowel sounds and no hepatosplenomegaly. EXTREMITIES: There is no cyanosis or clubbing. There is 2+ edema bilaterally to the lower legs. Radial pulses 2+ on the left, trace on the right and dorsalis pedis pulses are trace bilaterally. NEUROLOGIC: She is alert and oriented x3. Cranial nerves 2 -12 are grossly intact. Strength overall is 5/5, but hip flexors are perhaps 4/ 5 and hamstrings 4/5. Sensation is intact to light touch overall, but diminished in the lower extremities. SKIN: She has a well-approximated surgical scar. There is some drainage noted especially distally. There is no erythema or purulence. CURRENT LEVEL OF FUNCTION: Per the pre-admission screen: Regarding diet, feeding and swallowing, she was on a regular texture and required setup. Grooming required set up. For bathing, she needed assistance. Dressing upper extremity was done with minimal assistance. Toileting required moderate assistance. Bed mobility required minimal assistance. Transfers to the toilet required minimal assistance. She used a front-wheeled walker. Balance required contact guard assist. Endurance was poor. She walked 5 feet with a front-wheeled walker, though she says that today she walked further and was outside of her room. IMPRESSION: This patient is a 76-year-old woman who underwent major lumbar revision surgery for failed hardware and dextroscoliosis. She came to rehabilitation but had pain on her left flank which limited her ability to participate in rehabilitation. Imaging revealed an L2 pedicle screw possibly impinging on the L3 nerve root on the left. She had a 2nd surgery in which that screw was removed and hardware was replaced. Intraoperative cultures revealed infection with Enterococcus faecalis and Staphylococcus epidermidis for which she is on long-term antibiotics. There was considerable drainage from the wound and consideration of a reoperation for debridement, but she declined this. She was otherwise medically stabilized and ready for inpatient rehabilitation. Her goal is to complete a rehabilitation stay and return home with her family and supportive services. For a safe discharge it is expected that she will achieve modified independence for bed mobility, transfers and for ambulation with the least restrictive device. She may continue to require standby assist for bathing, dressing and to don her back brace. She likely will require assistance for meal preparation. She will have therapy with physical therapy, occupational therapy for 90 minutes per day for each discipline on 5-7 days of the week. Her expected duration of stay is 10-14 days. It is anticipated that upon discharge, she will continue to benefit from home health services including nursing, a nurse's aide, occupational therapy and physical therapy. PLAN: 1. Debility, status post lumbar revision surgery and subsequent surgery to remove pedicle screw causing nerve root impingement. Physical therapy and occupational therapy to optimize mobility and activities of daily living towards discharge home with a modified independent level. 2. Pain management appears to be adequate with her current regimen. She has not used any cyclobenzaprine in several days, so this will be these discontinued. She has been receiving doses of diazepam; most recently at approximately 2:00 this morning she had 5 mg for muscle spasm. So we will continue the diazepam as well as the methocarbamol and the oxycodone. Scheduled acetaminophen will be continued as well. She will have monitoring regarding pain control and adjustment of medications as needed. 3. 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 Continue daptomycin IV x8 weeks through 07/11/2017. Per Infectious Disease recommendations for monitoring of daptomycin, she will have a CBC on Mondays and . Monitoring will also include a CMP on Tuesday and , and a CPK every Tuesday. 4. Diabetes mellitus type 2. Continue metformin and pioglitazone. Blood sugars will be monitored. P.r.n. insulin will be added if necessary. 5. Hypertension. Continue nebivolol. She was previously on furosemide as well as metolazone. She has some edema currently. Consider re-initiation of diuretic if edema persists, and if her blood pressure will tolerate. 6. Edema, possibly due to pioglitazone. She had an echocardiogram done in the hospital which was not consistent with congestive heart failure. 7. Constipation. Continue bowel regimen with senna/docusate and polyethylene glycol. Bisacodyl suppository will be available as well. 8. Obstructive sleep apnea. This may also contribute to edema. She was previously noncompliant with CPAP, but has been compliant. CPAP will be continued at night. 9. Anemia has been stable or improving. 10. History of hyponatremia. This appears to have resolved with the discontinuation of furosemide and metolazone. She will have CMPs drawn as part of monitoring of possible adverse effects of daptomycin. 11. Morbid obesity. She will have a consult with the dietitian. 12. History of restless legs syndrome. Continue pramipexole. 13. History of diabetic peripheral neuropathy. Continue pregabalin. 14. Gastroesophageal reflux disorder. Continue pantoprazole. She is also on famotidine. Consideration will be given to discontinuing dual therapy. 15. Wound care will be continued as in the hospital. She will have twice daily dressing changes to the surgical incision over the lumbar spine. She will have scheduled emptying of the RHODA drains and further advice from Neurosurgery regarding duration of the drains will be obtained. 16. Prophylaxis. With significant deficits to mobility as well as obesity, she is high risk for deep venous thrombosis. Continue enoxaparin and sequential compression devices on the legs at night. /[id number]/MODL MTDD
[2017-05-23] MEDS: oxyCODONE IR 5 MG TAB PO PRN (19:52)
[2017-05-23] MEDS ORDERED: metFORMIN HCL 500 MG TAB PO SCH (21:00)
[2017-05-23] MEDS ORDERED: NON-FORMULARY NEW DRUG (Nebivolol Hcl [Bystolic] 20 MG) PO SCH (21:00)
[2017-05-23] MEDS ORDERED: NON-FORMULARY NEW DRUG (Metformin Hcl [Glucophage 1000 Mg] 1,000 MG) PO SCH (21:00)
[2017-05-23] MEDS: NEBIVOLOL HCL 5 MG TAB PO SCH (21:57)
[2017-05-23] MEDS: METHOCARBAMOL 500 MG TAB PO SCH (21:59)
[2017-05-23] MEDS: PRAMIPEXOLE 1 MG TAB PO SCH (21:59)
[2017-05-23] MEDS: PREGABALIN 75 MG CAP PO SCH (21:59)
[2017-05-23] MEDS: FAMOTIDINE 20 MG TAB PO SCH (22:00)
[2017-05-23] MEDS: SENNOSIDES/DOCUSATE SODIUM TAB PO SCH (22:04)
[2017-05-24] MEDS: oxyCODONE IR 5 MG TAB PO PRN ×5 (05:25→20:25)
[2017-05-24] MEDS ORDERED: DAPTOMYCIN IV SCH ×2 (06:00→10:00)
[2017-05-24] MEDS ORDERED: NS IV SCH (06:00)
[2017-05-24] MEDS: ENOXAPARIN 40 MG/0.4 ML SYR SC SCH (07:50)
[2017-05-24] MEDS ORDERED: POTASSIUM CL 20 MEQ TAB PO SCH (09:00)
[2017-05-24] MEDS: POLYETHYLENE GLYCOL 3350 17 GM PKT PO SCH (09:03)
[2017-05-24] MEDS: CHOLECALCIFEROL VIT D3 1,000 UNITS TAB PO SCH (09:05)
[2017-05-24] MEDS: FAMOTIDINE 20 MG TAB PO SCH ×2 (09:05→22:07)
[2017-05-24] MEDS: PIOGLITAZONE HCL 15 MG TAB PO SCH (09:05)
[2017-05-24] MEDS: SENNOSIDES/DOCUSATE SODIUM TAB PO SCH ×2 (09:05→22:12)
[2017-05-24] MEDS: PANTOPRAZOLE SODIUM 40 MG TAB PO SCH (09:05)
[2017-05-24] MEDS ORDERED: MAGNESIUM HYDROXIDE 30 ML UDCUP PO PRN (11:41)
--- NOTE | 2017-05-24 11:41 | SOAPPROG ---
SOAP Progress Note Assessment/Plan: Assessment: 76-year-old woman status post extensive revision of failed lumbar hardware on , with reoperation on 05/16/2017 for malpositioned screw which was impinging on the L3 nerve root on the left. # Debility, status post lumbar revision surgery x2. PT and OT to optimize mobility and activities of daily living toward discharge home at a modified independent level. # Pain management appears to be adequate. Continue scheduled acetaminophen, methocarbamol scheduled HS and p.r.n. otherwise, and p.r.n. oxycodone. 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 Continue IV daptomycin x8 weeks 08/28/2017. Lab monitoring per Infectious Disease: CBC and CMP Q Tuesday and and CPK Q Tuesday. # Sleep issues. P.r.n. melatonin at bedtime. Adjust schedule to accommodate to her usual sleep cycle. Will change time of daptomycin IV from 0 600 to 1000. # Diabetes mellitus type 2. Continue metformin and pioglitazone. # Hypertension. Continue nebivolol. Monitor blood pressures. She was previously on furosemide and metolazone. # Edema, unclear etiology. No congestive heart failure on echocardiogram in the hospital. May be due to pioglitazone. # Constipation. Continue bowel regimen. She is receiving maximal p.r.n. senna/ docusate at 2 tablets twice daily as well as polyethylene glycol. And p.r.n. milk of magnesia. Encouraged use of bisacodyl suppository. # Obstructive sleep apnea. May contribute to edema. Continue CPAP at night. # History of hyponatremia, resolved with discontinuation of furosemide and metolazone. # Morbid obesity. Consult with dietitian. # restless leg syndrome on pramipexole. # Diabetic peripheral neuropathy on pregabalin. # GERD on dual antacids. # Wound care orders from the hospital: Twice daily dressing changes to the surgical incision over the lumbar spine. Monitor RHODA drain output. # Prophylaxis. She is at high risk for DVT. Continue enoxaparin and SCDs at night. Encourage mobilization. 05/24/17 11:44 05/24/17 11:54 Subjective: Had limited sleep last night. She says she has a night owl and does not go to sleep early. She was awakened about 5 in the morning for IV antibiotics. Pain is adequately controlled. No cough or dyspnea, no fevers or chills. She reports that she has not moved her bowels for several days though bowel movement was recorded yesterday; she says it could not have been more than a tsp volume. Objective: Vital Signs Temp Pulse Resp BP Pulse Ox 37.1 C 65 18 119/65 95 05/24/17 05:33 05/24/17 05:33 05/24/17 05:33 05/24/17 05:33 05/24/17 05:33 05/23/17 05/24/17 05/25/17 05:59 05:59 05:59 Intake Total 550 112 Output Total 560 500 Balance -10 -388 Physical Exam - Physical Exam General Appearance: WD/WN, alert, no apparent distress, obese Respiratory: normal breath sounds, No crackles, No rhonchi, No wheezing Cardiac/Chest: regular rate, rhythm, edema (2+ bilateral pretibial.), No diastolic murmur, No systolic murmur Skin: normal color, warm/dry Neuro/Psych: no motor/sensory deficits, alert, normal mood/affect, oriented x 3 ICD10 Worksheet Patient Problems: Problems Problem Status Onset Degenerative disc disease, lumbar Acute Pseudarthrosis Acute
[2017-05-24] MEDS: ACETAMINOPHEN 500 MG TAB PO PRN (14:51)
[2017-05-24] MEDS: METHOCARBAMOL 500 MG TAB PO SCH (22:05)
[2017-05-24] MEDS: PREGABALIN 75 MG CAP PO SCH (22:05)
[2017-05-24] MEDS: NEBIVOLOL HCL 5 MG TAB PO SCH (22:06)
[2017-05-24] MEDS: PRAMIPEXOLE 1 MG TAB PO SCH (22:07)
[2017-05-24] MEDS: metFORMIN HCL 500 MG TAB PO SCH (22:07)
[2017-05-24] MEDS: MELATONIN 3 MG TAB PO SCH (22:08)
[2017-05-25] MEDS: oxyCODONE IR 5 MG TAB PO PRN ×6 (03:13→23:35)
[2017-05-25] MEDS: METHOCARBAMOL 750 MG TAB PO PRN ×2 (03:15→13:02)
[2017-05-25] MEDS: ENOXAPARIN 40 MG/0.4 ML SYR SC SCH (09:52)
[2017-05-25] MEDS: POLYETHYLENE GLYCOL 3350 17 GM PKT PO SCH (09:52)
[2017-05-25] MEDS: PIOGLITAZONE HCL 15 MG TAB PO SCH (09:53)
[2017-05-25] MEDS: FAMOTIDINE 20 MG TAB PO SCH ×2 (09:53→21:16)
[2017-05-25] MEDS: CHOLECALCIFEROL VIT D3 1,000 UNITS TAB PO SCH (09:53)
[2017-05-25] MEDS: SENNOSIDES/DOCUSATE SODIUM TAB PO SCH ×2 (09:53→21:15)
[2017-05-25] MEDS: PANTOPRAZOLE SODIUM 40 MG TAB PO SCH (09:53)
[2017-05-25] MEDS: NS IV SCH (09:54)
[2017-05-25] MEDS: DAPTOMYCIN IV SCH (09:54)
--- NOTE | 2017-05-25 11:47 | SOAPPROG ---
SOAP Progress Note Assessment/Plan: Assessment: 76-year-old woman status post extensive revision of failed lumbar hardware on , with reoperation on 05/16/2017 for malpositioned screw which was impinging on the L3 nerve root on the left. # Debility, status post lumbar revision surgery x2. * Initial FIM 65 0n 05/25/17. Moderate assistance for bed mobility. Transfers with minimal assistance and setup from a raised surface. Ambulated 135 ft with front wheeled walker and standby assist. Required minimal assistance for upper body dressing. Toilet transfer required contact to minimal assist and she needed setup for modified independence with toileting aftercare. Grooming and hygiene were done at the wheelchair level with standby assist. * Continue PT and OT to optimize mobility and activities of daily living toward discharge home at a modified independent level. # Pain management appears to be adequate. Continue scheduled acetaminophen, methocarbamol scheduled HS and p.r.n. otherwise, and p.r.n. oxycodone. 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 * Continue IV daptomycin x8 weeks 08/28/2017. * Lab monitoring per plan from Infectious Disease: CBC and CMP Q Tuesday and and CPK Q Tuesday. # Sleep issues. P.r.n. melatonin at bedtime. * Adjust schedule to accommodate to her usual sleep cycle. Changed time of daptomycin IV from 0 600 to 1000 starting 05/27/2017. # Diabetes mellitus type 2. Continue metformin and pioglitazone. # Hypertension. Continue nebivolol. Monitor blood pressures. She was previously on furosemide and metolazone. # Edema, unclear etiology. No congestive heart failure on echocardiogram in the hospital. May be due to pioglitazone. # Constipation. Continue bowel regimen. She is receiving maximal p.r.n. senna/ docusate at 2 tablets twice daily as well as polyethylene glycol. And p.r.n. milk of magnesia. Encouraged use of bisacodyl suppository. # Obstructive sleep apnea. May contribute to edema. Continue CPAP at night. # History of hyponatremia, resolved with discontinuation of furosemide and metolazone. # Morbid obesity. Consult with dietitian. # Restless leg syndrome on pramipexole. # Diabetic peripheral neuropathy on pregabalin. # GERD on dual antacids. # Wound care orders from the hospital: Twice daily dressing changes to the surgical incision over the lumbar spine. Monitor RHODA drain output. # Prophylaxis. She is at high risk for DVT. Continue enoxaparin and SCDs at night. Encourage mobilization. Attendant staffing, 15 min. Discussed with case management, dietitian, nursing , PT, OT. Plans to return home to [place] with considerable close family support. Set tentative discharge date for 06/02/2017. 05/25/17 11:42 Subjective: Awoke with pain at approximately 0 300. Was given oxycodone and methocarbamol and retain sleep. She reports considerable pain relief when she takes the oxycodone and is able to tolerate working with therapies. Walked the length the halls 1 today with PT. Had a bowel movement last night and did not require suppository. Objective: Vital Signs Temp Pulse Resp BP Pulse Ox 36.6 C 65 17 123/64 H 93 05/25/17 07:37 05/25/17 07:37 05/25/17 07:37 05/25/17 07:37 05/25/17 07:37 05/24/17 05/25/17 05/26/17 05:59 05:59 05:59 Intake Total 550 112 236 Output Total 560 760 Balance -10 -585 236 - Time Spent With Patient Time Spent With Patient: Greater than 35 min floor time today, including more than 50% of time in coordination of care during staffing meeting, and counseling patient. Physical Exam - Physical Exam General Appearance: WD/WN, alert, no apparent distress, obese Respiratory: normal breath sounds, No crackles, No rhonchi, No wheezing Cardiac/Chest: regular rate, rhythm, edema (1 to 2+ bilateral pretibial.), No diastolic murmur, No systolic murmur Skin: normal color, warm/dry Neuro/Psych: no motor/sensory deficits, alert, normal mood/affect, oriented x 3 ICD10 Worksheet Patient Problems: Problems Problem Status Onset Degenerative disc disease, lumbar Acute Pseudarthrosis Acute
[2017-05-25] MEDS: PREGABALIN 75 MG CAP PO SCH (21:09)
[2017-05-25] MEDS: metFORMIN HCL 500 MG TAB PO SCH (21:14)
[2017-05-25] MEDS: PRAMIPEXOLE 1 MG TAB PO SCH (21:14)
[2017-05-25] MEDS: METHOCARBAMOL 500 MG TAB PO SCH (21:14)
[2017-05-25] MEDS: NEBIVOLOL HCL 5 MG TAB PO SCH (21:15)
[2017-05-25] MEDS: MELATONIN 3 MG TAB PO SCH (21:19)
[2017-05-26] MEDS: METHOCARBAMOL 750 MG TAB PO PRN (06:37)
[2017-05-26] MEDS: oxyCODONE IR 5 MG TAB PO PRN ×5 (06:38→19:17)
[2017-05-26] MEDS: FAMOTIDINE 20 MG TAB PO SCH ×2 (09:52→21:18)
[2017-05-26] MEDS: ENOXAPARIN 40 MG/0.4 ML SYR SC SCH (09:52)
[2017-05-26] MEDS: PIOGLITAZONE HCL 15 MG TAB PO SCH (09:52)
[2017-05-26] MEDS: PANTOPRAZOLE SODIUM 40 MG TAB PO SCH (09:52)
[2017-05-26] MEDS: CHOLECALCIFEROL VIT D3 1,000 UNITS TAB PO SCH (09:52)
[2017-05-26] MEDS: SENNOSIDES/DOCUSATE SODIUM TAB PO SCH ×2 (09:53→21:19)
[2017-05-26] MEDS: POLYETHYLENE GLYCOL 3350 17 GM PKT PO SCH (09:53)
[2017-05-26] MEDS: NS IV SCH (10:48)
[2017-05-26] MEDS: DAPTOMYCIN IV SCH (10:48)
--- NOTE | 2017-05-26 15:49 | SOAPPROG ---
SOAP Progress Note Assessment/Plan: Assessment: 76-year-old woman status post extensive revision of failed lumbar hardware on , with reoperation on 05/16/2017 for malpositioned screw which was impinging on the L3 nerve root on the left. # Debility, status post lumbar revision surgery x2. * Initial FIM 65 0n 05/25/17. Moderate assistance for bed mobility. Transfers with minimal assistance and setup from a raised surface. Ambulated 135 ft with front wheeled walker and standby assist. Required minimal assistance for upper body dressing. Toilet transfer required contact to minimal assist and she needed setup for modified independence with toileting aftercare. Grooming and hygiene were done at the wheelchair level with standby assist. * Continue PT and OT to optimize mobility and activities of daily living toward discharge home at a modified independent level. # Pain management. Considerable pain with ambulation. Got through the night last night without extra oxycodone. * Trial of lidocaine patch over painful area right lower lumbar. * Schedule oxycodone 5 mg q.4 hours while awake to stay ahead of the pain. * Continue p.r.n. oxycodone 5-20 mg q.3 hours p.r.n. and attempt to give prior to therapies. * Continue scheduled acetaminophen, and methocarbamol scheduled HS and p.r.n. 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 * Continue IV daptomycin x8 weeks 08/28/2017. * Lab monitoring per plan from Infectious Disease: CBC and CMP Q Tuesday and and CPK Q Tuesday. * Texted picture of wound with distal dehiscence to neuro surgical physician assistant basketball coach Candido mead [phone] on 05/26/2017. * Continue RHODA drain until output less than 10 cc per shift x2 days. As of 05/26 approximately 18 cc per shift. # Sleep issues. P.r.n. melatonin at bedtime. * Adjust schedule to accommodate to her usual sleep cycle. Changed time of daptomycin IV from 0 600 to 1000 starting 05/27/2017. # Diabetes mellitus type 2. Continue metformin and pioglitazone. # Hypertension. Continue nebivolol. Monitor blood pressures. She was previously on furosemide and metolazone. # Edema, unclear etiology. No congestive heart failure on echocardiogram in the hospital. May be due to pioglitazone. # Constipation. Continue bowel regimen. She is receiving maximal p.r.n. senna/ docusate at 2 tablets twice daily as well as polyethylene glycol. And p.r.n. milk of magnesia. Encouraged use of bisacodyl suppository. # Obstructive sleep apnea. May contribute to edema. Continue CPAP at night. # History of hyponatremia, resolved with discontinuation of furosemide and metolazone. # Morbid obesity. Consult with dietitian. # Restless leg syndrome on pramipexole. # Diabetic peripheral neuropathy on pregabalin. # GERD on dual antacids. # Wound care orders from the hospital: Twice daily dressing changes to the surgical incision over the lumbar spine. Monitor RHODA drain output. # Prophylaxis. She is at high risk for DVT. Continue enoxaparin and SCDs at night. Encourage mobilization. Plans to return home to [place] with considerable close family support. Set tentative discharge date for 06/02/2017. 05/26/17 16:33 Subjective: C/O pain /10; due for next oxycodone PRN dose in 20 min. Pain is to right of incision, perhaps worse from pressure of lumbar corset. Pain does not radiate. Considerable pain relief when she lies down and rests. Had bowel movement today. No fevers or chills. Objective: Vital Signs Temp Pulse Resp BP Pulse Ox 36.8 C 69 15 109/44 L 94 05/26/17 08:00 05/26/17 08:00 05/26/17 08:00 05/26/17 08:00 05/26/17 08:00 05/25/17 05/26/17 05/27/17 05:59 05:59 05:59 Intake Total 112 936 Output Total 760 350 20 Balance -648 586 -20 Physical Exam - Physical Exam General Appearance: WD/WN, alert, no apparent distress, obese Respiratory: No respiratory distress, No accessory muscle use Skin: normal color, warm/dry, other (Distal incision with approximately 3 cm of dehiscence with yellow slough and serous discharge on bandage. Minimal surrounding erythema.) Neuro/Psych: no motor/sensory deficits, alert, normal mood/affect, oriented x 3 , other (Ambulates slowly, step-through pattern, leaning on FWW.) ICD10 Worksheet Patient Problems: Problems Problem Status Onset Degenerative disc disease, lumbar Acute Pseudarthrosis Acute
[2017-05-26] MEDS: oxyCODONE IR 5 MG TAB PO SCH ×2 (18:46→22:02)
[2017-05-26] MEDS ORDERED: ALTEPLASE 2 MG VIAL IVP PRN (18:54)
[2017-05-26] MEDS: METHOCARBAMOL 500 MG TAB PO SCH (21:16)
[2017-05-26] MEDS: PRAMIPEXOLE 1 MG TAB PO SCH (21:17)
[2017-05-26] MEDS: MELATONIN 3 MG TAB PO SCH (21:18)
[2017-05-26] MEDS: metFORMIN HCL 500 MG TAB PO SCH (21:19)
[2017-05-26] MEDS: PREGABALIN 75 MG CAP PO SCH (21:20)
[2017-05-26] MEDS: NEBIVOLOL HCL 5 MG TAB PO SCH (21:28)
[2017-05-26] MEDS: PATCH REMOVAL 1 EA PATCH TD SCH (21:33)
[2017-05-27] MEDS: oxyCODONE IR 5 MG TAB PO SCH ×6 (03:12→21:34)
[2017-05-27] MEDS: oxyCODONE IR 5 MG TAB PO PRN ×5 (05:40→21:49)
[2017-05-27] MEDS: ENOXAPARIN 40 MG/0.4 ML SYR SC SCH (07:59)
[2017-05-27] MEDS: PANTOPRAZOLE SODIUM 40 MG TAB PO SCH (08:01)
[2017-05-27] MEDS: SENNOSIDES/DOCUSATE SODIUM TAB PO SCH ×2 (08:01→21:44)
[2017-05-27] MEDS: CHOLECALCIFEROL VIT D3 1,000 UNITS TAB PO SCH (08:01)
[2017-05-27] MEDS: FAMOTIDINE 20 MG TAB PO SCH ×2 (08:01→21:32)
[2017-05-27] MEDS: POLYETHYLENE GLYCOL 3350 17 GM PKT PO SCH (08:01)
[2017-05-27] MEDS: PIOGLITAZONE HCL 15 MG TAB PO SCH (08:01)
[2017-05-27] MEDS: LIDOCAINE 5% 1 EA PATCH TD SCH (08:02)
[2017-05-27 08:30] LABS: PLATELET COUNT 351 10^3/uL (150-400)
[2017-05-27 09:04] LABS: CREATINE KINASE 21 IU/L (0-156)
[2017-05-27] MEDS: DAPTOMYCIN IV SCH (10:29)
[2017-05-27] MEDS: NS IV SCH (10:29)
--- NOTE | 2017-05-27 14:22 | SOAPPROG ---
SOAP Progress Note Assessment/Plan: Assessment: 76-year-old woman status post extensive revision of failed lumbar hardware on , with reoperation on 05/16/2017 for malpositioned screw which was impinging on the L3 nerve root on the left. # Debility, status post lumbar revision surgery x2. * Initial FIM 65 0n 05/25/17. Moderate assistance for bed mobility. Transfers with minimal assistance and setup from a raised surface. Ambulated 135 ft with front wheeled walker and standby assist. Required minimal assistance for upper body dressing. Toilet transfer required contact to minimal assist and she needed setup for modified independence with toileting aftercare. Grooming and hygiene were done at the wheelchair level with standby assist. * Continue PT and OT to optimize mobility and activities of daily living toward discharge home at a modified independent level. # Pain management. Considerable pain with ambulation. Getting through the night without extra oxycodone. * Trial of lidocaine patch over painful area right lower lumbar. * Schedule oxycodone 5 mg q.4 hours while awake to stay ahead of the pain. * Continue p.r.n. oxycodone 5-20 mg q.3 hours p.r.n. and attempt to give prior to therapies. * Continue scheduled acetaminophen, and methocarbamol scheduled HS. D/C p.r.n. methocarbamol 05/27/17. Plan to taper and discontinue scheduled HS methocarbamol if she has no worsening of pain. 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 * Continue IV daptomycin x8 weeks 08/28/2017. * Lab monitoring per plan from Infectious Disease: CBC and CMP Q Tuesday and and CPK Q Tuesday. * Texted picture of wound with distal dehiscence to neuro surgical physician historian research assistant Candido mead [phone] on 05/26/2017. * Continue RHODA drain until output less than 10 cc per shift x2 days. As of 05/26 approximately 18 cc per shift. # Wound healing. D/W GERMAINE Verdugo for Dr. Han. amd sent picture 05/26/17. * Increase frequency of dressing changes to Q 8 hours to keep wound more dry. * Continue to monitor and communication with Neurosurgery. * Ordered wound nurse consult but won't happen until after [place] 05/30/17. # Anemia, slightly worse on labs today 05/27/2017. Recheck 05/30/2017. * Appropriate reticulocytosis, normal B12. * Iron-deficient. Start FeSO2 325 mg QD on 05/27/2017, X 1 mo. # Sleep issues. P.r.n. melatonin at bedtime. * Adjust schedule to accommodate to her usual sleep cycle. Changed time of daptomycin IV from 0 600 to 1000 starting 05/27/2017. # Diabetes mellitus type 2. Continue metformin and pioglitazone. # Hypertension. Continue nebivolol. Monitor blood pressures. She was previously on furosemide and metolazone. # Edema, unclear etiology. No congestive heart failure on echocardiogram in the hospital. May be due to pioglitazone. # Constipation. Continue bowel regimen. She is receiving maximal p.r.n. senna/ docusate at 2 tablets twice daily as well as polyethylene glycol and p.r.n. milk of magnesia. Encouraged use of bisacodyl suppository. # Obstructive sleep apnea. May contribute to edema. Continue CPAP at night. # History of hyponatremia, resolved with discontinuation of furosemide and metolazone. # Morbid obesity. Consult with dietitian. # Restless leg syndrome on pramipexole. # Diabetic peripheral neuropathy on pregabalin. # GERD on dual antacids. # Prophylaxis. She is at high risk for DVT. Continue enoxaparin and SCDs at night. Encourage mobilization. Plans to return home to [place] with considerable close family support. Set tentative discharge date for 06/02/2017. 05/27/17 17:39 Subjective: Pain is improved with scheduled oxycodone 5 mg every 4 hr though she continues to use an additional 15 mg in approximately 3-4 hour intervals. She does through the night without additional pain medication. She is unclear as to whether methocarbamol is adding anything and does not note any muscle spasm type pain. No fevers, chills, cough, dyspnea. Bowels are moving. Objective: Vital Signs Temp Pulse Resp BP Pulse Ox 37.1 C 69 16 103/46 L 93 05/27/17 08:00 05/27/17 08:00 05/27/17 08:00 05/27/17 08:00 05/27/17 08:00 Laboratory Results 05/27/17 05:30 05/27/17 05:30 05/26/17 05/27/17 05/28/17 05:59 05:59 05:59 Intake Total 280 131 240 Output Total 350 389 Balance 586 -232 240 Physical Exam - Physical Exam General Appearance: WD/WN, alert, no apparent distress, obese Respiratory: No respiratory distress, No accessory muscle use Skin: normal color, warm/dry, other (Incision with approximately 2-3 cm of minimal dehiscence distally. Considerable serous discharge on dressing. No erythema or purulence.) Neuro/Psych: no motor/sensory deficits, alert, normal mood/affect, oriented x 3 , abnormal gait (Slow, with front wheeled walker.) ICD10 Worksheet Patient Problems: Problems Problem Status Onset Degenerative disc disease, lumbar Acute Pseudarthrosis Acute
[2017-05-27] MEDS: FERROUS SULFATE 325 MG TAB PO SCH (19:02)
[2017-05-27] MEDS: metFORMIN HCL 500 MG TAB PO SCH (21:32)
[2017-05-27] MEDS: MELATONIN 3 MG TAB PO SCH (21:32)
[2017-05-27] MEDS: NEBIVOLOL HCL 5 MG TAB PO SCH (21:33)
[2017-05-27] MEDS: METHOCARBAMOL 500 MG TAB PO SCH (21:34)
[2017-05-27] MEDS: PREGABALIN 75 MG CAP PO SCH (21:43)
[2017-05-27] MEDS: PRAMIPEXOLE 1 MG TAB PO SCH (21:43)
[2017-05-27] MEDS: PATCH REMOVAL 1 EA PATCH TD SCH (22:31)
[2017-05-28] MEDS: oxyCODONE IR 5 MG TAB PO SCH ×6 (01:29→21:45)
[2017-05-28] MEDS: oxyCODONE IR 5 MG TAB PO PRN ×7 (01:30→21:43)
[2017-05-28] MEDS: POLYETHYLENE GLYCOL 3350 17 GM PKT PO SCH (09:19)
[2017-05-28] MEDS: CHOLECALCIFEROL VIT D3 1,000 UNITS TAB PO SCH (09:21)
[2017-05-28] MEDS: PIOGLITAZONE HCL 15 MG TAB PO SCH (09:21)
[2017-05-28] MEDS: FAMOTIDINE 20 MG TAB PO SCH ×2 (09:22→21:46)
[2017-05-28] MEDS: FERROUS SULFATE 325 MG TAB PO SCH (09:22)
[2017-05-28] MEDS: PANTOPRAZOLE SODIUM 40 MG TAB PO SCH (09:22)
[2017-05-28] MEDS: SENNOSIDES/DOCUSATE SODIUM TAB PO SCH ×2 (09:22→21:48)
[2017-05-28] MEDS: LIDOCAINE 5% 1 EA PATCH TD SCH (09:26)
[2017-05-28] MEDS: ENOXAPARIN 40 MG/0.4 ML SYR SC SCH (09:26)
[2017-05-28] MEDS ORDERED: METHOCARBAMOL 500 MG TAB PO SCH (10:45)
[2017-05-28] MEDS: NS IV SCH (10:48)
[2017-05-28] MEDS: DAPTOMYCIN IV SCH (10:48)
--- NOTE | 2017-05-28 12:48 | SOAPPROG ---
SOAP Progress Note Assessment/Plan: Assessment: 76-year-old woman status post extensive revision of failed lumbar hardware on , with reoperation on 05/16/2017 for malpositioned screw which was impinging on the L3 nerve root on the left, and paraspinal infection. # Debility, status post lumbar revision surgery x2. * Initial FIM 65 0n 05/25/17. Moderate assistance for bed mobility. Transfers with minimal assistance and setup from a raised surface. Ambulated 135 ft with front wheeled walker and standby assist. Required minimal assistance for upper body dressing. Toilet transfer required contact to minimal assist and she needed setup for modified independence with toileting aftercare. Grooming and hygiene were done at the wheelchair level with standby assist. * Making progress; ambulation increased to 150'. * Continue PT and OT to optimize mobility and activities of daily living toward discharge home at a modified independent level. # Pain management. Considerable pain with ambulation. Getting through the night without extra oxycodone. * Trial of lidocaine patch over painful area right lower lumbar. * Schedule oxycodone 5 mg q.4 hours while awake to stay ahead of the pain. * Continue p.r.n. oxycodone 5-20 mg q.3 hours p.r.n. and attempt to give prior to therapies. * Continue scheduled acetaminophen, and methocarbamol scheduled HS. D/C p.r.n. methocarbamol 05/28/17. Plan to taper and discontinue scheduled HS methocarbamol if she has no worsening of pain. 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 * Continue IV daptomycin x8 weeks 08/28/2017. * Lab monitoring per plan from Infectious Disease: CBC and CMP Q Tuesday and and CPK Q Tuesday. * Texted picture of wound with distal dehiscence to neuro surgical physician optometric assistant Candido mead [phone] on 05/26/2017. * Continue RHODA drain until output less than 10 cc per shift x2 days. As of 05/26 approximately 18 cc per shift. # Wound healing. D/W GERMAINE [place]du[place] for Dr. Han. amd sent picture 05/26/17. * Increase frequency of dressing changes to Q 8 hours to keep wound more dry. Nursing to inspect dressing Q 4 hr while awake and change when saturated. * Continue to monitor and communication with Neurosurgery. * Ordered wound nurse consult but won't happen until after [place] 05/30/17. She has provided alternate dresing material to better absorb drainage. # Anemia, slightly worse on labs today 05/27/2017. Recheck 05/30/2017. * Appropriate reticulocytosis, normal B12. * Iron-deficient. Start FeSO2 325 mg QD on 05/27/2017, X 1 mo. # Sleep issues. P.r.n. melatonin at bedtime. * Adjust schedule to accommodate to her usual sleep cycle. Changed time of daptomycin IV from 0 600 to 1000 starting 05/27/2017. # Diabetes mellitus type 2. Continue metformin and pioglitazone. D/C QID blood sugar checks 05/28/17 as she has not required supplemental insulin. Continue AM blood sugar checks. # Hypertension. Continue nebivolol. Monitor blood pressures. She was previously on furosemide and metolazone. # Edema, unclear etiology. No congestive heart failure on echocardiogram in the hospital. May be due to pioglitazone. # Constipation. Continue bowel regimen. She is receiving maximal p.r.n. senna/ docusate at 2 tablets twice daily as well as polyethylene glycol and p.r.n. milk of magnesia. Encouraged use of bisacodyl suppository. # Obstructive sleep apnea. May contribute to edema. Continue CPAP at night. # History of hyponatremia, resolved with discontinuation of furosemide and metolazone. # Morbid obesity. Consult with dietitian. # Restless leg syndrome on pramipexole. # Diabetic peripheral neuropathy on pregabalin. # GERD on dual antacids. # Prophylaxis. She is at high risk for DVT. Continue enoxaparin and SCDs at night. Encourage mobilization. Plans to return home to [place] with considerable close family support. Set tentative discharge date for 06/02/2017. 05/28/17 12:48 Subjective: No complaints morning. Slept well. Continues to have pain especially with sit- to-stand. Ambulation improving with therapies. Objective: Vital Signs Temp Pulse Resp BP Pulse Ox 36.6 C 70 16 101/46 L 93 05/28/17 08:00 05/28/17 08:00 05/28/17 08:00 05/28/17 08:00 05/28/17 08:00 Laboratory Results 05/27/17 05:30 05/27/17 05:30 05/27/17 05/28/17 05/29/17 05:59 05:59 05:59 Intake Total 618 776 600 Output Total 850 270 5 Balance -232 506 595 Physical Exam - Physical Exam General Appearance: WD/WN, alert, no apparent distress, obese Respiratory: No respiratory distress, No accessory muscle use Cardiac/Chest: edema (2+ bilateral lower extremities pretibial) Skin: normal color, warm/dry, other (Or incision open area approximately 2 cm, decreased from 3 cm. No periwound erythema. Minimal whitish slough in open area. No travis wound erythema. Dressing saturated with serosanguineous drainage.) Neuro/Psych: no motor/sensory deficits, alert, normal mood/affect, oriented x 3 ICD10 Worksheet Patient Problems: Problems Problem Status Onset Degenerative disc disease, lumbar Acute Pseudarthrosis Acute
[2017-05-28] MEDS: NEBIVOLOL HCL 5 MG TAB PO SCH (21:45)
[2017-05-28] MEDS: PRAMIPEXOLE 1 MG TAB PO SCH (21:46)
[2017-05-28] MEDS: PREGABALIN 75 MG CAP PO SCH (21:47)
[2017-05-28] MEDS: metFORMIN HCL 500 MG TAB PO SCH (21:47)
[2017-05-28] MEDS: MELATONIN 3 MG TAB PO SCH (21:47)
[2017-05-28] MEDS: PATCH REMOVAL 1 EA PATCH TD SCH (21:53)
[2017-05-29] MEDS: oxyCODONE IR 5 MG TAB PO SCH ×6 (01:57→22:22)
[2017-05-29] MEDS: oxyCODONE IR 5 MG TAB PO PRN ×5 (05:51→19:40)
[2017-05-29] MEDS: ACETAMINOPHEN 500 MG TAB PO PRN ×2 (06:41→16:06)
[2017-05-29] MEDS: POLYETHYLENE GLYCOL 3350 17 GM PKT PO SCH (08:56)
[2017-05-29] MEDS: CHOLECALCIFEROL VIT D3 1,000 UNITS TAB PO SCH (08:57)
[2017-05-29] MEDS: FAMOTIDINE 20 MG TAB PO SCH ×2 (08:57→22:22)
[2017-05-29] MEDS: FERROUS SULFATE 325 MG TAB PO SCH (08:57)
[2017-05-29] MEDS: PIOGLITAZONE HCL 15 MG TAB PO SCH (08:57)
[2017-05-29] MEDS: LIDOCAINE 5% 1 EA PATCH TD SCH (08:58)
[2017-05-29] MEDS: ENOXAPARIN 40 MG/0.4 ML SYR SC SCH (08:58)
[2017-05-29] MEDS: PANTOPRAZOLE SODIUM 40 MG TAB PO SCH (08:58)
[2017-05-29] MEDS: SENNOSIDES/DOCUSATE SODIUM TAB PO SCH ×2 (08:58→22:19)
[2017-05-29] MEDS: NS IV SCH (10:00)
[2017-05-29] MEDS: DAPTOMYCIN IV SCH (10:00)
[2017-05-29] MEDS ORDERED: METHOCARBAMOL 500 MG TAB PO PRN (13:35)
--- NOTE | 2017-05-29 13:57 | SOAPPROG ---
SOAP Progress Note Assessment/Plan: Assessment: 76-year-old woman status post extensive revision of failed lumbar hardware on , with reoperation on 05/16/2017 for malpositioned screw which was impinging on the L3 nerve root on the left, and paraspinal infection. # Debility, status post lumbar revision surgery x2. * Initial FIM 65 0n 05/25/17. Moderate assistance for bed mobility. Transfers with minimal assistance and setup from a raised surface. Ambulated 135 ft with front wheeled walker and standby assist. Required minimal assistance for upper body dressing. Toilet transfer required contact to minimal assist and she needed setup for modified independence with toileting aftercare. Grooming and hygiene were done at the wheelchair level with standby assist. * Making progress; ambulation increased to > 150'. * Continue PT and OT to optimize mobility and activities of daily living toward discharge home at a modified independent level. # Pain management. Considerable pain with ambulation. Getting through the night without extra oxycodone. * Trial of lidocaine patch over painful area right lower lumbar. * Schedule oxycodone 5 mg q.4 hours while awake to stay ahead of the pain. * Continue p.r.n. oxycodone 5-20 mg q.3 hours p.r.n. and attempt to give prior to therapies. * Continue scheduled acetaminophen, and methocarbamol scheduled HS. D/C p.r.n. methocarbamol 05/28/17. No worsening of pain with taper of HS methocarbamol from 1000 mg to 500 mg. Changed to 500 mg at bedtime p.r.n. on . 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 * Continue IV daptomycin x8 weeks 08/28/2017. * Lab monitoring per plan from Infectious Disease: CBC and CMP Q Tuesday and and CPK Q Tuesday. * Texted picture of wound with distal dehiscence to neurosurgical physician assistant commissioner Candido mead [phone] on 05/26/2017. * Continue RHODA drain until output less than 10 cc per shift x2 days. As of 05/26 approximately 18 cc per shift. # Wound healing. D/W GERMAINE Verdugo for Dr. Han. amd sent picture 05/26/17. * Increase frequency of dressing changes to Q 8 hours to keep wound more dry. Nursing to inspect dressing Q 4 hr while awake and change when saturated. Considerably less drainage today 05/29/2017. * Continue to monitor and communication with Neurosurgery. * Ordered wound nurse consult but won't happen until after [place] 05/30/17. She has provided alternate dresing material to better absorb drainage. # Anemia, slightly worse on labs today 05/27/2017. Recheck 05/30/2017. * Appropriate reticulocytosis, normal B12. * Iron-deficient. Start FeSO2 325 mg QD on 05/27/2017, X 1 mo. # Sleep issues. P.r.n. melatonin at bedtime. * Adjust schedule to accommodate to her usual sleep cycle. Changed time of daptomycin IV from 0 600 to 1000 starting 05/27/2017. # Diabetes mellitus type 2. Continue metformin and pioglitazone. D/C QID blood sugar checks 05/28/17 as she has not required supplemental insulin. Continue AM blood sugar checks. # Hypertension. Continue nebivolol. Monitor blood pressures. She was previously on furosemide and metolazone. # Edema, unclear etiology. No congestive heart failure on echocardiogram in the hospital. May be due to pioglitazone. # Constipation. Continue bowel regimen. She is receiving maximal p.r.n. senna/ docusate at 2 tablets twice daily as well as polyethylene glycol and p.r.n. milk of magnesia. Encouraged use of bisacodyl suppository. # Obstructive sleep apnea. May contribute to edema. Continue CPAP at night. # History of hyponatremia, resolved with discontinuation of furosemide and metolazone. # Morbid obesity. Consult with dietitian. # Restless leg syndrome on pramipexole. # Diabetic peripheral neuropathy on pregabalin. # GERD on dual antacids. # Prophylaxis. She is at high risk for DVT. Continue enoxaparin and SCDs at night. Encourage mobilization. Plans to return home to [place] with considerable close family support. Set tentative discharge date for 06/02/2017. 05/29/17 14:09 Subjective: Had pain this morning with bed mobility. Reports that the physical therapist did know how to assist her to moved to sit up from supine. Otherwise generally doing better. She has pain in the middle of night but it resolves with oxycodone. Has not noticed any worsening of pain with taper of methocarbamol. Bowels moving. No cough, dyspnea, fevers, chills. Objective: Vital Signs Temp Pulse Resp BP Pulse Ox 37.6 C 67 16 135/70 H 93 05/29/17 06:40 05/29/17 05:58 05/29/17 05:58 05/29/17 05:58 05/29/17 05:58 Laboratory Results 05/27/17 05:30 05/27/17 05:30 05/28/17 05/29/17 05/30/17 05:59 05:59 05:59 Intake Total 776 1430 480 Output Total 270 30 Balance 506 1400 480 Physical Exam - Physical Exam General Appearance: WD/WN, alert, no apparent distress, obese Respiratory: normal breath sounds, No crackles, No rhonchi, No wheezing Cardiac/Chest: regular rate, rhythm, edema (1 to 2+ bilateral pretibial), No diastolic murmur, No systolic murmur Skin: normal color, warm/dry, other (Lumbar incision continues with 2-3 cm area of dehiscence distally. Drainage is visible on dressing but dressing is not saturated. No erythema and no purulence.) Neuro/Psych: no motor/sensory deficits, alert, normal mood/affect, oriented x 3 , abnormal gait (Walking faster and more easily, front wheeled walker, standby assist per PT. Maintains some flexion at the hips.) ICD10 Worksheet Patient Problems: Problems Problem Status Onset Degenerative disc disease, lumbar Acute Pseudarthrosis Acute
[2017-05-29 17:37] LABS: PLATELET COUNT 348 10^3/uL (150-400)
[2017-05-29] MEDS: NEBIVOLOL HCL 5 MG TAB PO SCH (22:19)
[2017-05-29] MEDS: PRAMIPEXOLE 1 MG TAB PO SCH (22:20)
[2017-05-29] MEDS: metFORMIN HCL 500 MG TAB PO SCH (22:21)
[2017-05-29] MEDS: PREGABALIN 75 MG CAP PO SCH (22:21)
[2017-05-29] MEDS: MELATONIN 3 MG TAB PO SCH (22:22)
[2017-05-29] MEDS: PATCH REMOVAL 1 EA PATCH TD SCH (22:30)
[2017-05-30] MEDS: oxyCODONE IR 5 MG TAB PO SCH ×6 (03:13→22:27)
[2017-05-30] MEDS: PANTOPRAZOLE SODIUM 40 MG TAB PO SCH (08:32)
[2017-05-30] MEDS: LIDOCAINE 5% 1 EA PATCH TD SCH (08:32)
[2017-05-30] MEDS: PIOGLITAZONE HCL 15 MG TAB PO SCH (08:32)
[2017-05-30] MEDS: FERROUS SULFATE 325 MG TAB PO SCH (08:32)
[2017-05-30] MEDS: FAMOTIDINE 20 MG TAB PO SCH ×2 (08:32→19:53)
[2017-05-30] MEDS: ENOXAPARIN 40 MG/0.4 ML SYR SC SCH (08:33)
[2017-05-30] MEDS: SENNOSIDES/DOCUSATE SODIUM TAB PO SCH ×2 (08:33→19:52)
[2017-05-30] MEDS: CHOLECALCIFEROL VIT D3 1,000 UNITS TAB PO SCH (08:33)
[2017-05-30] MEDS: POLYETHYLENE GLYCOL 3350 17 GM PKT PO SCH (08:33)
[2017-05-30 08:39] LABS: PLATELET COUNT 319 10^3/uL (150-400)
[2017-05-30 08:43] LABS: CREATINE KINASE 21 IU/L (0-156)
--- NOTE | 2017-05-30 09:55 | PCMIDPN ---
Assessment/Plan: # Fever, leukocytosis: wound better, back pain stable, neg UA, neg CXR, no changes in baseline bowel habits (soft stool), no rash, not hypoxic. Unclear source of fever, could be postop infection of fusion but although external exam improved and no worsening pain. Drug fever possible but no rash, Ast/alt nl and no eosinophils --ID service to see patient again 05/31 --follow blood cx to r/o PICC line infection --recheck CBC in AM --continue to assess need for re-imaging back (further increase wbc and persistent fever) --notified Dr. 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 external wound appears better, less drainage from lower part of wound, general decrease in output from RHODA 50>20>30> 20cc/24h --continue daptomycin 6mg/kg --add on CK to blood work today meds daptomycin 625mg IV daily, stop date 07/11/17 micro 05/29 blood cx (2) pending Subjective: patient concerned that fever will keep her from going home on 06/02 Objective: Vital Signs Temp Pulse Resp BP Pulse Ox 36.8 C 77 18 122/52 H 93 05/30/17 06:48 05/30/17 06:48 05/30/17 06:48 05/30/17 06:48 05/30/17 06:48 Laboratory Results 05/30/17 06:00 05/30/17 06:00 05/29/17 05/30/17 05/31/17 05:59 05:59 05:59 Intake Total 1430 1020 Output Total 30 20 10 Balance 1400 1000 -10 - Physical Exam General Appearance: alert, no apparent distress, obese EENT: pale conjunctiva, No thrush Respiratory: lungs clear, No accessory muscle use Neck: supple Cardiac/Chest: regular rate, rhythm, systolic murmur Extremities: No pedal edema Skin: pallor Neuro/Psych: alert, normal mood/affect, oriented x 3, other (tearful) - Time Spent With Patient Time Spent with Patient: greater than 35 minutes Time Spent with Patient: Greater than 35 minutes spent on this patients care, greater than 50% of time spent counseling, educating, and coordinating care regarding the above mentioned plan. ICD10 Worksheet Patient Problems: Problems Problem Status Onset Degenerative disc disease, lumbar Acute Pseudarthrosis Acute
[2017-05-30] MEDS: oxyCODONE IR 5 MG TAB PO PRN ×4 (10:06→19:50)
[2017-05-30] MEDS: DAPTOMYCIN IV SCH (10:06)
[2017-05-30] MEDS: NS IV SCH (10:06)
--- NOTE | 2017-05-30 15:10 | WOCRNPDOC ---
[facility] Advanced Assessment Note - Skin Integrity Problem, Advanced Assess Lower Medial Back Surgical Wound/Incision Dressing Type: Optilock Dressing Description: Clean/Dry, Intact Exudate Amount: Moderate Exudate Color: Clear Exudate Characteristic(s): Serous Mleina Wound Tissue: Erythema Wound Bed Color: Yellow Wound Bed Constitution: Tunneling (1.5 cm at 12 oclock), Adhered Slough Wound Edges: Attached Site Odor: None Site Measurement - Head-to-Toe Length X Width X Depth (cm): 2.7x1x1 Skin Integrity Problem Comment: Very gingerly explored wound bed. Small open dehisced area at inferior area of incision. Clear yellowish drainage on optilock. Dr. Larson visualized. Hopefully this wound is discrete and will not open up or dehisce further. Orders will be updated as wound is draining much less than before. Wound care will follow.
--- NOTE | 2017-05-30 15:28 | SOAPPROG ---
SOAP Progress Note Assessment/Plan: Assessment: 76-year-old woman status post extensive revision of failed lumbar hardware on , with reoperation on 05/16/2017 for malpositioned screw which was impinging on the L3 nerve root on the left, and paraspinal infection. # Debility, status post lumbar revision surgery x2. * Initial FIM 65 0n 05/25/17. Moderate assistance for bed mobility. Transfers with minimal assistance and setup from a raised surface. Ambulated 135 ft with front wheeled walker and standby assist. Required minimal assistance for upper body dressing. Toilet transfer required contact guard to minimal assist and she needed setup for modified independence with toileting aftercare. Grooming and hygiene were done at the wheelchair level with standby assist. * Making progress; ambulation increased to > 150'. * Continue PT and OT to optimize mobility and activities of daily living toward discharge home at a modified independent level. # Pain management. Considerable pain with ambulation. Getting through the night without extra oxycodone. * Trial of lidocaine patch over painful area right lower lumbar. * Schedule oxycodone 5 mg q.4 hours while awake to stay ahead of the pain. * Continue p.r.n. oxycodone 5-20 mg q.3 hours p.r.n. and attempt to give prior to therapies. * Continue scheduled acetaminophen, and methocarbamol scheduled HS. D/C p.r.n. methocarbamol 05/28/17. No worsening of pain with taper of HS methocarbamol from 1000 mg to 500 mg. Changed to 500 mg at bedtime p.r.n. on . 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 * Continue IV daptomycin x8 weeks 08/28/2017. * Lab monitoring per plan from Infectious Disease: CBC and CMP Q Tuesday and and CPK Q Tuesday. * Texted picture of wound with distal dehiscence to neurosurgical physician medical assistant cardiology Candido mead [phone] on 05/26/2017. * Continue RHODA drain until output less than 10 cc per shift x2 days. As of 05/26 approximately 18 cc per shift. # Episode of fever yesterday, 05/29/2017. Elevated white count yesterday 2016 and today at approximately 13. Otherwise infectious workup only showed atelectasis on chest x-ray. No UTI, no diarrhea, no obvious wound infection. Appreciate assistance of Infectious Disease window covering sales consultant. Continue to monitor. Await blood culture results. # Wound healing. D/W GERMAINE Verdugo for Dr. Han. amd sent picture 05/26/17. * Increase frequency of dressing changes to Q 8 hours to keep wound more dry. Nursing to inspect dressing Q 4 hr while awake and change when saturated. Considerably less drainage today 05/29/2017. * Continue to monitor and communication with Neurosurgery. * Appreciate assistance of wound nurse. May eventually need surgical debridement and exploration. However may be healing by secondary intention. # Anemia, slightly worse on labs today 05/27/2017. Better 05/29/17; overall stable 05/30/2017. * Appropriate reticulocytosis, normal B12. * Iron-deficient. Start FeSO2 325 mg QD on 05/27/2017, X 1 mo. # Sleep issues. P.r.n. melatonin at bedtime. * Adjust schedule to accommodate to her usual sleep cycle. Changed time of daptomycin IV from 0 600 to 1000 starting 05/27/2017. # Diabetes mellitus type 2. Continue metformin and pioglitazone. D/C QID blood sugar checks 05/28/17 as she has not required supplemental insulin. Continue AM blood sugar checks. # Hypertension. Continue nebivolol. Monitor blood pressures. She was previously on furosemide and metolazone. # Edema, unclear etiology. No congestive heart failure on echocardiogram in the hospital. May be due to pioglitazone. # Constipation. Continue bowel regimen. She is receiving maximal p.r.n. senna/ docusate at 2 tablets twice daily as well as polyethylene glycol and p.r.n. milk of magnesia. Encouraged use of bisacodyl suppository. # Obstructive sleep apnea. May contribute to edema. Continue CPAP at night. # History of hyponatremia, resolved with discontinuation of furosemide and metolazone. # Morbid obesity. Consult with dietitian. # Restless leg syndrome on pramipexole. # Diabetic peripheral neuropathy on pregabalin. # GERD on dual antacids. # Prophylaxis. She is at high risk for DVT. Continue enoxaparin and SCDs at night. Encourage mobilization. Plans to return home to [place] with considerable close family support. Set tentative discharge date for 06/02/2017. 05/30/17 15:24 Subjective: No complaints today. Tolerating therapies without increased pain. Trying to use less oxycodone. Sleeping well. No cough, dyspnea. Objective: Vital Signs Temp Pulse Resp BP Pulse Ox 36.8 C 77 18 122/52 H 93 05/30/17 06:48 05/30/17 06:48 05/30/17 06:48 05/30/17 06:48 05/30/17 06:48 Laboratory Results 05/30/17 06:00 05/30/17 06:00 05/29/17 05/30/17 05/31/17 05:59 05:59 05:59 Intake Total 1430 1020 360 Output Total 30 20 10 Balance 1400 1000 350 Physical Exam - Physical Exam General Appearance: WD/WN, alert, no apparent distress Respiratory: No respiratory distress, No accessory muscle use Skin: normal color, warm/dry, other (Examined lumbar incision with wound nurse. Approximately 2 and 0.5 cm area of dehiscence on distal wound, no surrounding erythema. Probes 1.8 cm deep.) Neuro/Psych: no motor/sensory deficits, alert, normal mood/affect, oriented x 3 ICD10 Worksheet Patient Problems: Problems Problem Status Onset Degenerative disc disease, lumbar Acute Pseudarthrosis Acute
[2017-05-30] MEDS: NEBIVOLOL HCL 5 MG TAB PO SCH (19:49)
[2017-05-30] MEDS: metFORMIN HCL 500 MG TAB PO SCH (19:52)
[2017-05-30] MEDS: MELATONIN 3 MG TAB PO SCH (19:52)
[2017-05-30] MEDS: PRAMIPEXOLE 1 MG TAB PO SCH (19:52)
[2017-05-30] MEDS: PREGABALIN 75 MG CAP PO SCH (19:52)
[2017-05-30] MEDS: ACETAMINOPHEN 500 MG TAB PO PRN (22:27)
[2017-05-30] MEDS: PATCH REMOVAL 1 EA PATCH TD SCH (23:08)
[2017-05-31] MEDS: oxyCODONE IR 5 MG TAB PO SCH ×6 (02:27→20:50)
[2017-05-31] MEDS: oxyCODONE IR 5 MG TAB PO PRN ×3 (07:20→22:04)
[2017-05-31 08:16] LABS: PLATELET COUNT 272 10^3/uL (150-400)
[2017-05-31] MEDS: DAPTOMYCIN IV SCH (09:18)
[2017-05-31] MEDS: ENOXAPARIN 40 MG/0.4 ML SYR SC SCH (09:18)
[2017-05-31] MEDS: CHOLECALCIFEROL VIT D3 1,000 UNITS TAB PO SCH (09:18)
[2017-05-31] MEDS: NS IV SCH (09:18)
[2017-05-31] MEDS: FAMOTIDINE 20 MG TAB PO SCH ×2 (09:19→20:49)
[2017-05-31] MEDS: FERROUS SULFATE 325 MG TAB PO SCH (09:19)
[2017-05-31] MEDS: LIDOCAINE 5% 1 EA PATCH TD SCH (09:19)
[2017-05-31] MEDS: PANTOPRAZOLE SODIUM 40 MG TAB PO SCH (09:21)
[2017-05-31] MEDS: POLYETHYLENE GLYCOL 3350 17 GM PKT PO SCH (09:21)
[2017-05-31] MEDS: SENNOSIDES/DOCUSATE SODIUM TAB PO SCH ×2 (09:22→20:49)
[2017-05-31 09:53] VITALS: RESP 16
[2017-05-31] MEDS: PIOGLITAZONE HCL 15 MG TAB PO SCH (12:14)
--- NOTE | 2017-05-31 12:42 | SOAPPROG ---
SOAP Progress Note Assessment/Plan: Assessment: 76-year-old woman status post extensive revision of failed lumbar hardware on , with reoperation on 05/16/2017 for malpositioned screw which was impinging on the L3 nerve root on the left, and paraspinal infection. # Debility, status post lumbar revision surgery x2. * Initial FIM 65 0n 05/25/17. Moderate assistance for bed mobility. Transfers with minimal assistance and setup from a raised surface. Ambulated 135 ft with front wheeled walker and standby assist. Required minimal assistance for upper body dressing. Toilet transfer required contact guard to minimal assist and she needed setup for modified independence with toileting aftercare. Grooming and hygiene were done at the wheelchair level with standby assist. * Making progress; ambulation increased to > 150'. * Continue PT and OT to optimize mobility and activities of daily living toward discharge home at a modified independent level. # Pain management. Considerable pain with ambulation. Getting through the night without extra oxycodone. * Trial of lidocaine patch over painful area right lower lumbar. * Schedule oxycodone 5 mg q.4 hours while awake to stay ahead of the pain. * Continue p.r.n. oxycodone 5-20 mg q.3 hours p.r.n. and attempt to give prior to therapies. * Continue scheduled acetaminophen, and methocarbamol scheduled HS. D/C p.r.n. methocarbamol 05/28/17. No worsening of pain with taper of HS methocarbamol from 1000 mg to 500 mg. Changed to 500 mg at bedtime p.r.n. on . 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 * Continue IV daptomycin x8 weeks 08/28/2017. * Lab monitoring per plan from Infectious Disease: CBC and CMP Q Tuesday and and CPK Q Tuesday. * Continue RHODA drain until output less than 10 cc per shift x2 days. As of 05/26 approximately 18 cc per shift. # Episode of fever05/29/2017, with white count yesterday 05/29/2017 and and at approximately 13. White count normalized 05/31/2017 Otherwise infectious workup only showed atelectasis on chest x-ray. No UTI, no diarrhea, no obvious wound infection. Appreciate assistance of Infectious Disease search consultant. Continue to monitor. Await blood culture results. # Wound healing. D/W GERMAINE Verdugo for Dr. Han. amd sent picture 05/26/17. * Increase frequency of dressing changes to Q 8 hours to keep wound more dry. Nursing to inspect dressing Q 4 hr while awake and change when saturated. Considerably less drainage today 05/29/2017. * Continue to monitor and communication with Neurosurgery. * Appreciate assistance of wound nurse. May eventually need surgical debridement and exploration. However may be healing by secondary intention. # Anemia, slightly worse on labs today 05/27/2017. Better 05/29/17; overall stable 05/30/2017. * Appropriate reticulocytosis, normal B12. * Iron-deficient. Start FeSO2 325 mg QD on 05/27/2017, X 1 mo. * Worsening 05/31/2017. Labs regarding possible hemolysis are negative but awaiting haptoglobin. Await stool hemoccults. Consider discontinuation of enoxaparin. # Sleep issues. P.r.n. melatonin at bedtime. * Adjust schedule to accommodate to her usual sleep cycle. Changed time of daptomycin IV from 0 600 to 1000 starting 05/27/2017. # Diabetes mellitus type 2. Continue metformin and pioglitazone. D/C QID blood sugar checks 05/28/17 as she has not required supplemental insulin. Continue AM blood sugar checks. # Hypertension. Continue nebivolol. Monitor blood pressures. She was previously on furosemide and metolazone. # Edema, unclear etiology. No congestive heart failure on echocardiogram in the hospital. May be due to pioglitazone. # Constipation. Continue bowel regimen. She is receiving maximal p.r.n. senna/ docusate at 2 tablets twice daily as well as polyethylene glycol and p.r.n. milk of magnesia. Encouraged use of bisacodyl suppository. # Obstructive sleep apnea. May contribute to edema. Continue CPAP at night. # History of hyponatremia, resolved with discontinuation of furosemide and metolazone. # Morbid obesity. Consult with dietitian. # Restless leg syndrome on pramipexole. # Diabetic peripheral neuropathy on pregabalin. # GERD on dual antacids. # Prophylaxis. She is at high risk for DVT. Continue enoxaparin and SCDs at night. Encourage mobilization. Plans to return home to [place] with considerable close family support. Set tentative discharge date for 06/02/2017. PCP is Sri Villalba in [place]. 05/31/17 12:48 Subjective: Expresses anxiety about whether she will be ready to go home on and about arrangements after discharge including home health care and follow-up visits. Otherwise without complaint. Pain is improved. No fevers or chills. Objective: Vital Signs Temp Pulse Resp BP Pulse Ox 36.6 C 63 16 96/46 L 91 L 05/31/17 09:50 05/31/17 09:50 05/31/17 09:50 05/31/17 09:50 05/31/17 09:50 Laboratory Results 05/31/17 06:00 05/30/17 06:00 05/30/17 05/31/17 06/01/17 05:59 05:59 05:59 Intake Total 1020 920 240 Output Total 20 20 10 Balance 1000 900 230 Physical Exam - Physical Exam General Appearance: WD/WN, alert, no apparent distress Respiratory: No respiratory distress, No accessory muscle use Cardiac/Chest: edema (1+ bilateral pretibial) Skin: normal color, warm/dry, other (Incision stable) Neuro/Psych: no motor/sensory deficits, alert, normal mood/affect, oriented x 3 ICD10 Worksheet Patient Problems: Problems Problem Status Onset Degenerative disc disease, lumbar Acute Pseudarthrosis Acute
--- NOTE | 2017-05-31 14:41 | PCMIDPN ---
Assessment/Plan: Assessment/Plan: * Fever/leukocytosis: No further fever and elevated white blood cell count has normalized. Blood cultures remain negative. Chest x-ray shows presence of atelectasis. Back wound with decreasing drainage and pain which are atypical in the setting of ongoing deep infection. Will observe without antibiotics other than daptomycin which is being used for postoperative back infection as outlined below. * Postoperative back infection: Continue daptomycin with anticipated 8 week course of therapy. Follow back incision over time. 05/31/17 14:38 05/31/17 14:40 Subjective: patient without significant back pain. No diarrhea or skin rash. Objective: Vital Signs Temp Pulse Resp BP Pulse Ox 36.6 C 63 16 96/46 L 91 L 05/31/17 09:50 05/31/17 09:50 05/31/17 09:50 05/31/17 09:50 05/31/17 09:50 Laboratory Results 05/31/17 06:00 05/30/17 06:00 05/30/17 05/31/17 06/01/17 05:59 05:59 05:59 Intake Total 1020 920 240 Output Total 20 20 10 Balance 1000 900 230 Daptomycin (stop date 07/11/2017) Blood cultures 05/29/2017 no growth to date Tm 38.2 Laboratory Tests 05/30/17 06:00 Creatine Kinase 21 - Physical Exam General Appearance: alert, no apparent distress EENT: dry mucous membranes, No scleral icterus, No thrush Respiratory: lungs clear ( anterolaterally) Cardiac/Chest: regular rate, rhythm, No systolic murmur Extremities: No inflammation Abdomen: non-tender, No distended Back: other ( incision with fat necrosis over lower incision without active expressible drainage; minimal surrounding travis-incisional erythema; serosanguineous output in RHODA drain), No spine tenderness Skin: No rash - Line/s LUE PICC Lines: No drainage, No erythema ICD10 Worksheet Patient Problems: Problems Problem Status Onset Degenerative disc disease, lumbar Acute Pseudarthrosis Acute
[2017-05-31] MEDS: PREGABALIN 75 MG CAP PO SCH (20:48)
[2017-05-31] MEDS: metFORMIN HCL 500 MG TAB PO SCH (20:48)
[2017-05-31] MEDS: NEBIVOLOL HCL 5 MG TAB PO SCH (20:49)
[2017-05-31] MEDS: PRAMIPEXOLE 1 MG TAB PO SCH (20:49)
[2017-05-31] MEDS: MELATONIN 3 MG TAB PO SCH (20:49)
[2017-06-01] MEDS: PATCH REMOVAL 1 EA PATCH TD SCH ×2 (00:07→22:12)
[2017-06-01] MEDS: oxyCODONE IR 5 MG TAB PO PRN ×5 (01:05→22:09)
[2017-06-01] MEDS: oxyCODONE IR 5 MG TAB PO SCH ×6 (05:09→22:08)
[2017-06-01] MEDS: DAPTOMYCIN IV SCH (05:11)
[2017-06-01] MEDS: NS IV SCH (05:11)
[2017-06-01] MEDS: PANTOPRAZOLE SODIUM 40 MG TAB PO SCH (08:57)
[2017-06-01] MEDS: SENNOSIDES/DOCUSATE SODIUM TAB PO SCH ×3 (08:57→22:10)
[2017-06-01] MEDS: CHOLECALCIFEROL VIT D3 1,000 UNITS TAB PO SCH (08:57)
[2017-06-01] MEDS: PIOGLITAZONE HCL 15 MG TAB PO SCH (08:57)
[2017-06-01] MEDS: LIDOCAINE 5% 1 EA PATCH TD SCH (08:57)
[2017-06-01] MEDS: FAMOTIDINE 20 MG TAB PO SCH ×2 (08:57→22:07)
[2017-06-01] MEDS: FERROUS SULFATE 325 MG TAB PO SCH (08:57)
[2017-06-01] MEDS: POLYETHYLENE GLYCOL 3350 17 GM PKT PO SCH (08:58)
[2017-06-01] MEDS: ENOXAPARIN 40 MG/0.4 ML SYR SC SCH (08:58)
--- NOTE | 2017-06-01 12:38 | SOAPPROG ---
SOAP Progress Note Assessment/Plan: Assessment: 76-year-old woman status post extensive revision of failed lumbar hardware on , with reoperation on 05/16/2017 for malpositioned screw which was impinging on the L3 nerve root on the left, and paraspinal infection. # Debility, status post lumbar revision surgery x2. * Initial FIM 65 0n 05/25/17; gain to 84 as of 06/01/17. Transfers CGA/SBA from raised surface. Walking 150' 1 - 2 X/day. Needs assist to get legs back into bedDreses with set-up and supervision. Min A to supervision level for toileting. Bath transfer and bathing mod A. * Continue PT and OT to optimize mobility and activities of daily living toward discharge home at a modified independent level. # Pain management. Considerable pain with ambulation. Getting through the night without extra oxycodone. * Trial of lidocaine patch over painful area right lower lumbar. * Much improved with dramatic reduction in opiate use since 05/30/2017. * Continue scheduled oxycodone 5 mg q.4 hours while awake though she's often not using it. * Continue p.r.n. oxycodone 5-20 mg q.3 hours p.r.n. and attempt to give prior to therapies. * Continue scheduled acetaminophen, and methocarbamol scheduled HS. D/C p.r.n. methocarbamol 05/28/17. No worsening of pain with taper of HS methocarbamol from 1000 mg to 500 mg. Changed to 500 mg at bedtime p.r.n. on 05/29/2017. 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 * Continue IV daptomycin x8 weeks 08/28/2017. * Lab monitoring per plan from Infectious Disease: CBC and CMP Q Tuesday and and CPK Q Tuesday. * Continue RHODA drain until output less than 10 cc per shift x2 days. As of 05/26 approximately 18 cc per shift. # Episode of fever 05/29/2017, with white count yesterday 05/29/2017 and and at approximately 13. White count normalized 05/31/2017 Otherwise infectious workup only showed atelectasis on chest x-ray. No UTI, no diarrhea, no obvious wound infection. Appreciate assistance of Infectious Disease solutions sales consultant. Continue to monitor. Await blood culture results. # Wound healing. D/W GERMAINE Verdugo for Dr. Han. amd sent picture 05/26/17. * Increase frequency of dressing changes to Q 8 hours to keep wound more dry. Nursing to inspect dressing Q 4 hr while awake and change when saturated. Considerably less drainage today 05/29/2017. * Continue to monitor and communication with Neurosurgery. * Appreciate assistance of wound nurse. May eventually need surgical debridement and exploration. However may be healing by secondary intention. # Anemia, slightly worse on labs 05/27/2017. Better 05/29/17; overall stable 05/30/2017. * Appropriate reticulocytosis, normal B12. * Iron-deficient. Start FeSO2 325 mg QD on 05/27/2017, X 1 mo. * Worsening 05/31/2017. Labs regarding possible hemolysis are negative but awaiting haptoglobin. Await stool hemoccults. Consider discontinuation of enoxaparin. # Edema, unclear etiology. No congestive heart failure on echocardiogram in the hospital. May be due to pioglitazone. * Previously on metolazone and furosemide per PCP. Restart furosemide 20 mg QD. Daily weight. Mobility may improve with less weight in legs. # Diabetes mellitus type 2. Continue metformin and pioglitazone. D/C QID blood sugar checks 05/28/17 as she has not required supplemental insulin. Continue AM blood sugar checks. # Hypertension. Continue nebivolol. Monitor blood pressures. She was previously on furosemide and metolazone. # Constipation. Continue bowel regimen. * Reduce dosing with decrease in opiate use. # Sleep issues. P.r.n. melatonin at bedtime. * Adjust schedule to accommodate to her usual sleep cycle. Changed time of daptomycin IV from 0 600 to 1000 starting 05/27/2017. # Obstructive sleep apnea. May contribute to edema. Continue CPAP at night. # History of hyponatremia, resolved with discontinuation of furosemide and metolazone. * Monitor. # Morbid obesity. Consult with dietitian. # Restless leg syndrome on pramipexole. # Diabetic peripheral neuropathy on pregabalin. # GERD on dual antacids. # Prophylaxis. She is at high risk for DVT. Continue enoxaparin and SCDs at night. Encourage mobilization. Plans to return home to [place] with considerable close family support. Set tentative discharge date for 06/02/2017. Attended staffing, 15 min. D/W case mgmt, business education teacher, pharmacist, nurse, PT, OT. Plans to discharge to home in [place] with assistance from daughter and grand-daughter. Follow-up with Neurosurgery 06/03/17. Discharge 06/03/17. PCP is Sri Villalba in [place]. 06/01/17 12:39 Subjective: Back pain is much improved. Using less opiate medication and wants laxatives reduced. No fevers/chills, cough, dyspnea. Sleeping well. Objective: Vital Signs Temp Pulse Resp BP Pulse Ox 36.8 C 65 16 108/52 L 93 06/01/17 08:00 06/01/17 08:00 06/01/17 08:00 06/01/17 08:00 06/01/17 08:00 Laboratory Results 05/31/17 06:00 05/30/17 06:00 05/31/17 06/01/17 06/02/17 05:59 05:59 05:59 Intake Total 920 640 Output Total 20 10 Balance 900 630 - Time Spent With Patient Time Spent With Patient: Greater than 35 minutes floor time today, including more than 50% of time in coordination of care during staffing meeting, and counseling patient. Physical Exam - Physical Exam General Appearance: WD/WN, alert, no apparent distress Respiratory: normal breath sounds, No crackles, No rhonchi, No wheezing Cardiac/Chest: regular rate, rhythm, edema (2+ B LE), No diastolic murmur, No systolic murmur Skin: normal color, warm/dry Neuro/Psych: no motor/sensory deficits, alert, normal mood/affect, oriented x 3 ICD10 Worksheet Patient Problems: Problems Problem Status Onset Degenerative disc disease, lumbar Acute Pseudarthrosis Acute
[2017-06-01] MEDS: FUROSEMIDE 20 MG TAB PO SCH (13:15)
[2017-06-01] MEDS: NEBIVOLOL HCL 5 MG TAB PO SCH (22:07)
[2017-06-01] MEDS: MELATONIN 3 MG TAB PO SCH (22:07)
[2017-06-01] MEDS: PREGABALIN 75 MG CAP PO SCH (22:08)
[2017-06-01] MEDS: PRAMIPEXOLE 1 MG TAB PO SCH (22:08)
[2017-06-01] MEDS: metFORMIN HCL 500 MG TAB PO SCH (22:08)
[2017-06-02] MEDS: oxyCODONE IR 5 MG TAB PO SCH ×6 (03:00→22:07)
[2017-06-02] MEDS: NS IV SCH (06:22)
[2017-06-02] MEDS: DAPTOMYCIN IV SCH (06:22)
[2017-06-02] MEDS: oxyCODONE IR 5 MG TAB PO PRN ×4 (06:24→17:35)
[2017-06-02 08:14] LABS: PLATELET COUNT 265 10^3/uL (150-400)
[2017-06-02] MEDS: ENOXAPARIN 40 MG/0.4 ML SYR SC SCH (08:56)
[2017-06-02] MEDS: CHOLECALCIFEROL VIT D3 1,000 UNITS TAB PO SCH (09:18)
[2017-06-02] MEDS: FAMOTIDINE 20 MG TAB PO SCH ×2 (09:19→22:04)
[2017-06-02] MEDS: FUROSEMIDE 20 MG TAB PO SCH (09:19)
[2017-06-02] MEDS: FERROUS SULFATE 325 MG TAB PO SCH (09:19)
[2017-06-02] MEDS: PANTOPRAZOLE SODIUM 40 MG TAB PO SCH (09:20)
[2017-06-02] MEDS: PIOGLITAZONE HCL 15 MG TAB PO SCH (09:20)
[2017-06-02] MEDS: SENNOSIDES/DOCUSATE SODIUM TAB PO SCH ×2 (09:21→22:05)
[2017-06-02] MEDS: POLYETHYLENE GLYCOL 3350 17 GM PKT PO SCH ×2 (09:22→09:31)
[2017-06-02] MEDS: LIDOCAINE 5% 1 EA PATCH TD SCH (09:24)
--- NOTE | 2017-06-02 15:33 | SOAPPROG ---
SOAP Progress Note Assessment/Plan: Assessment: 76-year-old woman status post extensive revision of failed lumbar hardware on , with reoperation on 05/16/2017 for malpositioned screw which was impinging on the L3 nerve root on the left, and paraspinal infection. # Debility, status post lumbar revision surgery x2. * Initial FIM 65 0n 05/25/17, improved to 86 as of 06/01/2017. Contact guard to standby assist for transfers from raised surface ambulating 150 ft 1-2 times per day. Needs setup and supervision for dressing minimal assist to supervision for toileting. Bathing and bath transfer are accomplished with moderate assistance. * Continue PT and OT to optimize mobility and activities of daily living toward discharge home at a modified independent level. # Pain management. Considerable pain with ambulation. Getting through the night without extra oxycodone. * Trial of lidocaine patch over painful area right lower lumbar. * Schedule oxycodone 5 mg q.4 hours while awake to stay ahead of the pain. * Continue p.r.n. oxycodone 5-20 mg q.3 hours p.r.n. and attempt to give prior to therapies. * Continue scheduled acetaminophen, and methocarbamol scheduled HS. D/C p.r.n. methocarbamol 05/28/17. No worsening of pain with taper of HS methocarbamol from 1000 mg to 500 mg. Changed to 500 mg at bedtime p.r.n. on . 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 * Continue IV daptomycin x8 weeks 07/11/2017. * Lab monitoring per plan from Infectious Disease: CBC and CMP Q Tuesday and and CPK Q Tuesday. * Continue RHODA drain until output less than 10 cc per shift x2 days. As of 05/26 approximately 18 cc per shift. To be assessed by nurse surgery tomorrow 06/03/2017. # Episode of fever05/29/2017, with white count yesterday 05/29/2017 and and at approximately 13. White count normalized 05/31/2017 Otherwise infectious workup only showed atelectasis on chest x-ray. No UTI, no diarrhea, no obvious wound infection. Appreciate assistance of Infectious Disease clinical sales consultant. Continue to monitor. Await blood culture results. # Wound healing. D/W GERMAINE Verdugo for Dr. Han. amd sent picture 05/26/17. * Increase frequency of dressing changes to Q 8 hours to keep wound more dry. Nursing to inspect dressing Q 4 hr while awake and change when saturated. Considerably less drainage today 05/29/2017. * Continue to monitor and communication with Neurosurgery. * Appreciate assistance of wound nurse. May eventually need surgical debridement and exploration. However may be healing by secondary intention. # Anemia, slightly worse on labs today 05/27/2017. Better 05/29/17; overall stable 06/02/2017. * Appropriate reticulocytosis, normal B12. * Iron-deficient. Start FeSO2 325 mg QD on 05/27/2017, X 1 mo. * Worsening 05/31/2017. Labs regarding possible hemolysis are negative except slightly elevated haptoglobin of unclear clinical significance. Hemoccults negative x3. * Continue to monitor. # Sleep issues. P.r.n. melatonin at bedtime. * Adjust schedule to accommodate to her usual sleep cycle. Changed time of daptomycin IV from 0 600 to 1000 starting 05/27/2017. # Diabetes mellitus type 2. Continue metformin and pioglitazone. D/C QID blood sugar checks 05/28/17 as she has not required supplemental insulin. Continue AM blood sugar checks. # Hypertension. Continue nebivolol. Monitor blood pressures. She was previously on furosemide and metolazone. # Edema, unclear etiology. No congestive heart failure on echocardiogram in the hospital. May be due to pioglitazone. * Started furosemide 20 mg a day on 06/01/2017. Initiate daily weights starting 06/03/2017. # Constipation. Continue bowel regimen. She is receiving maximal p.r.n. senna/ docusate at 2 tablets twice daily as well as polyethylene glycol and p.r.n. milk of magnesia. Encouraged use of bisacodyl suppository. # Obstructive sleep apnea. May contribute to edema. Continue CPAP at night. # History of hyponatremia, resolved with discontinuation of furosemide and metolazone. # Morbid obesity. Consult with dietitian. # Restless leg syndrome on pramipexole. # Diabetic peripheral neuropathy on pregabalin. # GERD on dual antacids. # Prophylaxis. She is at high risk for DVT. Continue enoxaparin and SCDs at night. Encourage mobilization. [facility] however due to details of insurance coverage daptomycin would be excessively expensive. Working on options with disease case manager rn. She may stay through 06/08/2017 to reassess drug costs on her new Health Plan starting 06/06/2017. May change to vancomycin would be less expensive than daptomycin. She may discharge to [facility] facility in [place] and medication would be paid for out of Medicare a or B rather than Medicare D. PCP is Sri Villalba in [place]. 06/02/17 15:22 Subjective: No complaints. Pain adequately controlled. Has not noticed any increased urination with furosemide. Objective: Vital Signs Temp Pulse Resp BP Pulse Ox 37.0 C 64 16 122/65 H 90 L 06/02/17 08:00 06/02/17 08:00 06/02/17 08:00 06/02/17 08:00 06/02/17 08:00 Laboratory Results 06/02/17 06:35 06/02/17 06:35 06/01/17 06/02/17 06/03/17 05:59 05:59 05:59 Intake Total 640 1586 236 Output Total 10 10 Balance 630 1576 236 Physical Exam - Physical Exam General Appearance: WD/WN, alert, no apparent distress, obese Respiratory: No respiratory distress, No accessory muscle use Cardiac/Chest: edema (2+ bilateral lower extremities.) Skin: normal color, warm/dry, other (Lumbar incision with open area approximately 2 and 0.5 cm toward the distal aspect, minimal drainage on bandage. No erythema or purulence.) Neuro/Psych: no motor/sensory deficits, alert, normal mood/affect, oriented x 3 ICD10 Worksheet Patient Problems: Problems Problem Status Onset Degenerative disc disease, lumbar Acute Pseudarthrosis Acute
[2017-06-02] MEDS: PREGABALIN 75 MG CAP PO SCH (22:00)
[2017-06-02] MEDS: MELATONIN 3 MG TAB PO SCH (22:04)
[2017-06-02] MEDS: PRAMIPEXOLE 1 MG TAB PO SCH (22:04)
[2017-06-02] MEDS: metFORMIN HCL 500 MG TAB PO SCH (22:04)
[2017-06-02] MEDS: NEBIVOLOL HCL 5 MG TAB PO SCH (22:05)
[2017-06-02] MEDS: PATCH REMOVAL 1 EA PATCH TD SCH (23:06)
[2017-06-03] MEDS: oxyCODONE IR 5 MG TAB PO SCH ×3 (01:41→09:14)
[2017-06-03] MEDS: oxyCODONE IR 5 MG TAB PO PRN ×3 (01:44→09:14)
[2017-06-03] MEDS: NS IV SCH (05:43)
[2017-06-03] MEDS: DAPTOMYCIN IV SCH (05:43)
[2017-06-03 05:56] VITALS: BP 108/60; PULSE 64; TEMP 97.7; O2SAT 92
[2017-06-03] MEDS ORDERED: morphINE SR 15 MG TAB PO ONE (08:01)
[2017-06-03] MEDS ORDERED: oxyCODONE IR 15 MG TAB PO ONE (08:01)
[2017-06-03] MEDS: ENOXAPARIN 40 MG/0.4 ML SYR SC SCH (08:17)
[2017-06-03] MEDS: PANTOPRAZOLE SODIUM 40 MG TAB PO SCH (08:18)
[2017-06-03] MEDS: FAMOTIDINE 20 MG TAB PO SCH (08:18)
[2017-06-03] MEDS: CHOLECALCIFEROL VIT D3 1,000 UNITS TAB PO SCH (08:18)
[2017-06-03] MEDS: PIOGLITAZONE HCL 15 MG TAB PO SCH (08:18)
[2017-06-03] MEDS: FERROUS SULFATE 325 MG TAB PO SCH (08:18)
[2017-06-03] MEDS: FUROSEMIDE 20 MG TAB PO SCH (08:18)
[2017-06-03] MEDS: SENNOSIDES/DOCUSATE SODIUM TAB PO SCH (08:19)
[2017-06-03] MEDS: LIDOCAINE 5% 1 EA PATCH TD SCH (08:19)
[2017-06-03] MEDS: POLYETHYLENE GLYCOL 3350 17 GM PKT PO SCH (08:19)
--- NOTE | 2017-06-07 18:24 | GDS ---
[f rep st] DISCHARGE SUMMARY This dictation is for the patient's 2nd stay in the inpatient rehabilitation unit. For details of he r 1st visit, please see the discharge summary for 05/13/2017. This is for the period of 05/23/2017 t o 06/03/2017. Between 05/13 and 05/23, the patient was back at [facility] for revisio n of her lumbar surgery. ADMITTING DIAGNOSIS: Lumbar surgery, status post revision for hardware that was impinging on a spina l nerve. DISCHARGE DIAGNOSIS: Lumbar surgery, status post revision for hardware that was impinging on a spina l nerve. OTHER DISCHARGE DIAGNOSES: 1. Paraspinal infection. 2. Iron deficiency anemia. 3. Diabetes mellitus type 2. 4. Edema. 5. Obesity. CONSULTATIONS: She had a consultation with the wound care nurse and Infectious Disease physician, Dr Senia Edwards. PROCEDURES: There were none. COMPLICATIONS: There were none. HISTORY/HOSPITAL COURSE: 1. This patient returned to inpatient rehabilitation after a 10-day hospital stay where she had revi axel surgery; there was a pedicle screw at the L2 level that was impinging on the L2-L3 nerve on the left and causing considerable pain. She had surgery with removal of the screw and revision of the pino rdware. Additionally, at that time, there was a fluid collection, cultures were taken and she was di agnosed with a paraspinal abscess. She returned to inpatient rehabilitation with considerable debili ty. Her initial functional independence measure was 65 on 05/25/2017. She was requiring moderate as sistance for bed mobility, minimal assistance for transfers from a raised surface, minimal assistance for upper body dressing and toilet transfer. She had considerable improvement functionally. The da y before discharge, her functional independence measure had improved to 84, which is consistent with assisted living level of care. She could transfer with just contact guard to standby assist from a r aised surface. She was walking 150 feet 1-2 times a day. She needed assistance to get her legs back into bed. She needed moderate assistance for bath transfer and bathing. 2. She had considerable pain initially, but through the course of her stay, her oxycodone use decrea sed considerably. She was also treated with a lidocaine patch over the painful areas in the right lo wer lumbar region. She did not have recurrence of the left lower back pain; it resolved after the re vision surgery. 3. Regarding the paraspinal infection and the possibility of infected hardware, she was on IV daptom ycin and this was to be continued for 8 weeks through 08/28/2017. Prior to her discharge, this was c hanged to vancomycin. She was having a CBC and a CMP every Tuesday and , and a CPK every ay. She had a RHODA drain with minimal output and whether it was to stay in or not was to be determined by followup with Orthopedic Surgery, Dr. Han, on the day of discharge. 4. Wound healing. There was a dehisced area approximately 2-3 cm at the distal end of her lumbar in cision. It was monitored by the wound nurse and it was as much as a centimeter deep with no tunnelin g. There were no signs or symptoms of infection, with no erythema and no purulence, and serosanguine ous drainage which decreased considerably during her stay. Dressing changes were q.8 hours and initi ally, dressings were saturated, but toward the end of her stay, there was only scant drainage noted o n the dressings. 5. She had anemia, which remained stable. She had appropriate reticulocytosis and a normal B12. He moccult was negative x3. She was noted to be iron deficient. Iron sulfate 325 mg daily was begun on 05/27/2017, and should continue for 1 month. 6. She had edema of the legs. This may have contributed to her difficulty getting her legs into bed . She had previously been on metolazone and furosemide per her primary care provider. Furosemide wa s started at 20 mg daily and it should be continued until her edema is considerably improved. 7. Diabetes mellitus type 2. She continued on pioglitazone in the morning and metformin in the even ing. Her blood sugars were well controlled. She did not require any supplemental insulin. 8. There was a history of hyponatremia which resolved with the discontinuation of furosemide and met olazone, and she should be monitored in the future while she is taking furosemide. CONDITION UPON DISCHARGE: Good. ACTIVITY: Ad dima, but she should have assistance with mobility-related tasks, for which she continue s to need assistance. DIET: Regular. She had been on a diabetic diet, but she disliked it. DATE OF NEXT APPOINTMENT: She had followup with neurosurgeon, Dr. Guille on the day of discha rge, and subsequent followup will be per her primary care provider, Dr. Sri Villalba in [place]. MEDICATIONS AT DISCHARGE: 1. Daptomycin 625 mg IV daily, but I believe this was changed to vancomycin with orders sent to her destination correction facility per Infectious Disease physician, Dr. Edwards. 2. Famotidine 20 mg p.o. twice daily. 3. Senna/docusate 1-2 tabs p.o. twice daily. 4. Acetaminophen 1000 mg p.o. q.8 hours p.r.n. 5. Cholecalciferol 1000 units p.o. daily. 6. Polyethylene glycol 17 g p.o. daily. 7. Oxycodone 5 mg scheduled q.4 hours while awake, and 5-20 mg p.o. q.3 hours p.r.n. 8. Metformin 1000 mg p.o. at bedtime. 9. Pregabalin 150 mg p.o. at bedtime. 10. Pramipexole 2 mg p.o. at bedtime. 11. Potassium chloride 20 mEq p.o. daily. 12. Pioglitazone 45 mg p.o. daily. 13. Pantoprazole 40 mg p.o. daily. 14. Nebivolol 20 mg p.o. at bedtime. 15. Melatonin 3 mg p.o. at bedtime. 16. Lidocaine patch to her right low back daily. 17. Furosemide 20 mg p.o. daily. 18. Ferrous sulfate 325 mg p.o. daily through June 26. 19. Cathflo p.r.n. PICC line occlusion. ISSUES TO BE ADDRESSED AT FOLLOWUP: 1. Paraspinal infection with continued lab monitoring regarding the vancomycin, with CBC and CMP q. Tuesday and . Vancomycin is to be continued through 08/28/2016, for a total of an 8-week cour se. She should have subsequent followup with an infectious disease physician in [place]. 2. Wound healing. Advise consult with the wound care nurse, and follow up with her attending collins farris at the correction facility to which she discharged, as well as with primary care provider, Vahe Villalba. 3. Anemia. Advise followup CBC and iron panel after June 26, to evaluate for anemia and iron sto res. 4. Edema, may be related to obstructive sleep apnea, may be related to pioglitazone. She did not pino ve heart failure per echocardiogram while she was in the hospital. Continue furosemide as well as po tassium chloride. 5. Diabetes mellitus type 2, has been stable on her current medications. 6. Hypertension, was well controlled on nebivolol. 7. History of hyponatremia. Advise monitoring of her renal function and electrolytes while she is o n furosemide. [facility] [place] /[id number]/MODL
--- NOTE | 2017-06-08 12:45 | PDOREHIP ---
Admission [facility] - Admission - 3 Day Assessment Period Admission Date/Day 1: 05/23/17 Day 2: 05/24/17 Day 3: 05/25/17 Discharge [facility] - Discharge - 3 Day Assessment Period 2 Days Prior to Anticipated Discharge Date: 06/01/17 1 Day Prior to Anticipated Discharge Date: 06/02/17 Anticipated Discharge Date: 06/03/17 - Discharge Skin Conditions Unhealed Pressure Ulcer (1 or more/Stage 1 or >)-Discharge: 0. No
== END 2017-06-03 09:30 | DRG 949 ==
LOC: BREH 14:55
PROVIDERS: ADMIT Internal Medicine; ATTEND Internal Medicine
PROC: F08Z0FZ Bathing/Showering Techniques Treatment using Assistive, Adaptive, Supportive or Protective Equipment (ICD-10-PCS; principal; 2017-05-23)
PROC: F07Z9FZ Gait Training/Functional Ambulation Treatment using Assistive, Adaptive, Supportive or Protective Equipment (ICD-10-PCS; principal; 2017-05-23)
PROC: F08Z2FZ Grooming/Personal Hygiene Treatment using Assistive, Adaptive, Supportive or Protective Equipment (ICD-10-PCS; principal; 2017-05-23)
DX: Z48.811 Encounter for surgical aftercare following surgery on the nervous system (principal); T84.226A Displacement of internal fixation device of vertebrae, initial encounter; T81.4XXA Infection following a procedure, initial encounter; B95.2 Enterococcus as the cause of diseases classified elsewhere; B95.7 Other staphylococcus as the cause of diseases classified elsewhere; Z79.2 Long term (current) use of antibiotics; E11.42 Type 2 diabetes mellitus with diabetic polyneuropathy; I10 Essential (primary) hypertension; R60.9 Edema, unspecified; K21.9 Gastro-esophageal reflux disease without esophagitis; K59.00 Constipation, unspecified; D64.9 Anemia, unspecified; G47.33 Obstructive sleep apnea (adult) (pediatric); E66.01 Morbid (severe) obesity due to excess calories; Z68.35 Body mass index [BMI] 35.0-35.9, adult; Z91.81 History of falling
CPT/HCPCS: 82607-90; 83010-90; 97110-GO; 97110-GP; 97116-GP; 97161-GP; 97165-GO; 97530-GO; 97530-GP; 97535-GO; J0878; J1650; J2997